=== PATIENT | male | born 1950 | race Caucasian/White ===

== ENCOUNTER 2020-08-27 08:27 | Day surgery (SDC) | payer OTHER ==
[2020-08-27] MEDS ORDERED: NA CHLORIDE 0.9% 1,000 ML ONE (08:59)
[2020-08-27] MEDS ORDERED: propofoL 200 MG/20 ML VIAL IV ONE ×2 (10:01)
[2020-08-27] MEDS ORDERED: LIDOCAINE 1% MPF 5 ML VIAL ONE (10:01)
--- NOTE | 2020-08-27 10:06 | ENDO RPT ---
[address], [address] EGD PROCEDURE REPORT EXAM DATE: 08/27/2020 PATIENT NAME: Toñito Long MR#: [id number] BIRTHDATE: 1950 ATTENDING: Lizandro Ye Dr STATUS: outpatient SANITARIAN INSPECTOR: Vernell Beckwith RN, Myrna Araiza RN, Roberta Flowers RN, and Thelma Franco CST INDICATIONS: The patient is a 70 yr old Male here for an EGD due to bloating, belching, dyspepsia, and iron deficiency anemia PROCEDURE PERFORMED: EGD with biopsy MEDICATIONS: Per Anesthesia. TOPICAL ANESTHETIC: none CONSENT: The patient understands the risks and benefits of the procedure and understands that these risks include, but are not limited to: sedation, allergic reaction, infection, perforation and/or bleeding. Alternative means of evaluation and treatment include, among others: physical exam, x-rays, and/or surgical intervention. The patient elects to proceed with this endoscopic procedure. DESCRIPTION OF PROCEDURE: During intra-op preparation period all mechanical medical equipment was checked for proper function. Hand hygiene and appropriate measures for infection prevention was taken. Procedure, possible complications, and alternatives including but not limited to the possibility of bleeding, perforation, tear, infection, sepsis, need for surgery, need for blood transfusion, and anesthesia related complications were explained to the patient. After the risks, benefits and alternatives of the procedure were thoroughly explained, Informed consent was verified, confirmed and timeout was successfully executed by the treatment team. The patient was placed in the left lateral position. The patient was anesthetized with topical anesthesia. Through the anesthetized oropharyngeal area, the scope was passed without any difficulty. The EC-3890Li ([id number]) and EG-[id number] ([id number]) endoscope was introduced through the mouth and advanced to the third portion of the duodenum. Retroflexed views revealed a moderate sized hiatal hernia. The gastroscope was then slowly withdrawn and removed. A moderate sized hiatal hernia was found. Moderate gastritis was found in the total stomach. Multiple biopsies were obtained and sent to pathology. Mild duodenitis was found in the bulb of the duodenum. Small bowel biopsies ob tained with history of iron deficiency anemia. ADVERSE EVENTS: There were no complications. IMPRESSIONS: 1. Moderate sized hiatal hernia 2. Moderate gastritis in the total stomach, s/p biopsies 3. Mild duodenitis in the bulb of the duodenum 4. Small bowel biopsies ob tained with history of iron deficiency anemia RECOMMENDATIONS: 1. await biopsy results 2. acid suppression therapy REPEAT EXAM: Lizandro Ye Dr eSigned: Lizandro Ye Dr 08/27/2020 10:06 AM cc: Lino Carpenter CPT CODES: ICD9 CODES: PATIENT NAME: Toñito Long MR#: [id number]
--- NOTE | 2020-08-27 10:35 | ENDO RPT ---
[address], [address] COLONOSCOPY PROCEDURE REPORT EXAM DATE: 08/27/2020 PATIENT NAME: Toñito Long MR #: [id number] BIRTHDATE: 1950 ATTENDING: Lizandro Ye Dr STATUS: outpatient PRE ASSEMBLY WIRER: Vernell Beckwith RN, Myrna Araiza RN, Roberta Flowers RN, and Thelma Franco CST INDICATIONS: The patient is a 70 yr old Male here for a colonoscopy due to iron deficiency anemia PROCEDURE PERFORMED: Colonoscopy MEDICATIONS: Per Anesthesia. ESTIMATED BLOOD LOSS: None CONSENT: The patient understands the risks and benefits of the procedure and understands that these risks include, but are not limited to: sedation, allergic reaction, infection, perforation and/or bleeding. Alternative means of evaluation and treatment include, among others: physical exam, x-rays, and/or surgical intervention. The patient elects to proceed with this endoscopic procedure. DESCRIPTION OF PROCEDURE: During intra-op preparation period all mechanical medical equipment was checked for proper function. Hand hygiene and appropriate measures for infection prevention was taken. Procedure, possible complications, alternatives including, but not limited to possibility of bleeding, perforation, tear, infection, sepsis, need for surgery, need for blood transfusion, were explained to the patient. After the risks, benefits and alternatives of the procedure were thoroughly explained, Informed consent was verified, confirmed and timeout was successfully executed by the treatment team. The patient was placed in the left lateral position. A digital rectal exam was performed and revealed external hemorrhoids. After appropriate level of anesthesia, the scope was passed. The EG-[id number] ([id number]) and EC-3890Li ([id number]) endoscope was introduced through the anus and advanced to the ascending colon. The quality of the prep was fair. The instrument was then slowly withdrawn as the colon was fully examined. Scope withdrawal time was 7 minutes. COLON FINDINGS: Moderate sized internal and external hemorrhoids were found. Retroflexed views revealed medium hemorrhoids. The scope was then completely withdrawn from the patient and the procedure terminated. ADVERSE EVENTS: There were no complications. IMPRESSIONS: 1. Moderate sized internal and external hemorrhoids 2. Intubation to ascending colon RECOMMENDATIONS: barium enema RECALL: Return in 5 year(s) for Colonoscopy. Lizandro Ye Dr eSigned: Lizandro Ye Dr 08/27/2020 10:34 AM cc: Lino Carpenter CPT CODES: ICD9 CODES: 455.5 External hemorrhoids with other complication PATIENT NAME: Toñito Long MR#: [id number]
--- NOTE | 2020-08-27 13:53 | RAD REPORT ---
EXAM DESCRIPTION: RAD - Colon Barium Enema - 08/27/2020 1:13 pm CLINICAL HISTORY: Abdominal pain/incomplete colonoscopy COMPARISON: None TECHNIQUE: Single-contrast barium enema was performed. The entire colon was filled with refluxed into the append ix and terminal ileum FINDINGS:. Apron Operator film demonstrates air throughout the colon. There is a 2.7 filling defect within the rectum. Otherwise, no permanent filling defects, obstructing or constricting lesions are seen. Fluoroscopy time 1.3 minutes. Eighteen fluoroscopic spot images obtained IMPRESSION: 2.7 centimeter filling defect within the rectum. It is uncertain if this represents the balloon associated with the rectal tube or a mass. Digital examination is recommended Otherwise unremarkable exam
[2020-08-27 14:48] VITALS: BP 123/75; TEMP 97; O2SAT 95
== END 2020-08-27 13:22 | disposition home or self-care (01) ==
LOC: OR 08:27
PROVIDERS: ATTEND Internal Medicine Gastroenterology
PROC: 0DB68ZX Excision of Stomach, Via Natural or Artificial Opening Endoscopic, Diagnostic (ICD-10-PCS; principal; 2020-08-27 09:30)
PROC: 0DJD8ZZ Inspection of Lower Intestinal Tract, Via Natural or Artificial Opening Endoscopic (ICD-10-PCS; 2020-08-27 09:30)
DX: D50.9 Iron deficiency anemia, unspecified (principal); R14.2 Eructation; R10.13 Epigastric pain; K29.50 Unspecified chronic gastritis without bleeding; K64.4 Residual hemorrhoidal skin tags; K64.8 Other hemorrhoids; K44.9 Diaphragmatic hernia without obstruction or gangrene; Z20.822 Contact with and (suspected) exposure to COVID-19
CPT/HCPCS: 43239; 45378; 88312; 82947; 88305; 74270; U0002; J2704 ×2; J7030

== ENCOUNTER 2022-07-22 11:15 | Day surgery (SDC) | payer OTHER ==
[2022-07-19 16:38] LABS: Absolute Lymphocytes (CBC) 0.6 K/uL (0.7-4.9); Hematocrit 42.8 % (39.6-49.0); MCV 88.3 fL (80-100); MPV 8.8 fL (7.6-11.3); RBC Red Blood Cell Count 4.85 M/uL (4.33-5.43)
[2022-07-19 16:41] LABS: Protime INR 1.14
[2022-07-19 16:48] LABS: Potassium 4.5 mmol/L (3.5-5.1)
--- NOTE | 2022-07-20 07:37 | EKG ---
Test Date: 2022-07-19 Test Time: 14:53:41 Oil Agent: RENA MEASUREMENT RESULTS: Intervals: Rate: 71 NH: QRSD: 142 QT: 406 QTc: 441 Tyler: P: NH: QRS: -46 T: 56 INTERPRETIVE STATEMENTS: Atrial fibrillation Left axis deviation Left bundle branch block Abnormal ECG Compared to ECG 10/12/2012 15:58:17 Left-axis deviation now present Left bundle-branch block now present ST (T wave) deviation no longer present Electronically Signed On 07-20-22 07:35:25 DRIVER ENGINEER by Paul Izquierdo
[~2022-07-22 11:15] MED LIST: ATROPINE SULF 1 MG/10 ML SYR IV ONE; FENTANYL CITR 100 MCG/2 ML ONE; FLUMAZENIL 0.1 MG/ML (5 mL VIAL) IV ONE; LIDOCAINE VISCOUS 2% SOLN 15 ML UDC ONE; METOPROLOL TARTRATE 5 MG/5 ML INJ IV ONE; MIDAZOLAM HCL 5 ML ONE; NA CHLORIDE 0.9% 500 ML ONE; PHENOL 1.4% ORAL SPRAY 180ML ONE
[2022-07-22 11:25] VITALS: TEMP 97.1
[2022-07-22 14:38] VITALS: BP 112/61; O2SAT 97
--- NOTE | 2022-07-22 15:31 | EKG ---
Test Date: 2022-07-22 Test Time: 13:36:04 [employer] Law Clerk: JENNIFER MEASUREMENT RESULTS: Intervals: Rate: 61 ME: QRSD: 154 QT: 432 QTc: 434 Pringle: P: ME: QRS: -45 T: 55 INTERPRETIVE STATEMENTS: Atrial fibrillation Left axis deviation Left bundle branch block Abnormal ECG Compared to ECG 07/19/2022 14:53:41 No significant changes Electronically Signed On 07-22-22 15:30:11 [employer] by Jerome Nicholas
--- NOTE | 2022-07-22 18:00 | OP ---
Date of Procedure: 07/22/2022 Surgeon: YAYO BRAGA Procedures Performed: 1.Transesophageal echocardiogram. 2.Electrical cardioversion. Diagnosis: Atrial fibrillation. Description Of Procedure: After risks, benefits, alternatives were explained, the patient agreed to procedure and signed informed consent. The patient was brought into the OR room 5. After proper terra e-out, the back of the throat was numbed using lidocaine locally and then gave 5 mg of Versed and the n the SAVI probe was inserted without difficulty. SAVI was performed. There was no left atrial append age thrombus. Then, using synchronized cardioversion, I used 200 joules in an attempt to cardiovert to sinus rhythm; however, it failed. Then, charged to 300 joules and did synchronize cardioversion a nd the patient continues to be in atrial fibrillation. Conclusion: 1.No left atrial appendage closure. 2.Electrical cardioversion; however, 2 attempts failed to restore sinus rhythm. Plan: Consult EP for ablation. /BECKI Voice ID: [id number] Report ID: [id number]
--- NOTE | 2022-07-23 07:16 | TEE ---
TRANSESOPHAGEAL ECHOCARDIOGRAM REPORT CARDIOLOGY DEPARTMENT DATE OF STUDY: 07/22/2022 HEIGHT: 6ft, 0in WEIGHT: 320 lbs DIAGNOSIS: CARDIOVERSION MAID HOUSEKEEPER COMMENTS: CARDIAC HISTORY: CATHERIZATION: SURGERY: PROSTHETIC VALVE: PACEMAKER: 2 DIMENSIONAL ASSESSMENT: RIGHT ATRIUM: NORMAL LEFT ATRIUM: ENLARGED RIGHT VENTRICLE: NORMAL LEFT VENTRICLE: DEPRESSED EJECTION FRACTION TRICUSPID VALVE: MILD TRICUSPID REGURGITATION MITRAL VALVE: MILD MITRAL REGURGITATION PULMONIC VALVE: NORMAL AORTIC VALVE: NORMAL PERICARDIAL EFFUSION: NONE AORTIC ROOT: NORMAL EJECTION FRACTION: 25-30 % LEFT VENTRICULAR WALL MOTION: SEVERE GLOBAL HYPOKINESIS DOPPLER/COLOR FLOW: SEE BELOW COMMENTS: 1. SEVERELY DEPRESSED LEFT VENTRICULAR EJECTION FRACTION 25-30% 2. MILD MITRAL REGURGITATION 3. MILD TRICUSPID REGURGITATION 4. NO LEFT ATRIAL APPENDAGE [facility] TECHNOLOGIST: JAYLYN ALCANTARA
== END 2022-07-22 14:15 | disposition home or self-care (01) ==
LOC: CCL 11:15
PROVIDERS: ATTEND Internal Medicine
DX: I48.19 Other persistent atrial fibrillation (principal); I11.0 Hypertensive heart disease with heart failure; I50.20 Unspecified systolic (congestive) heart failure; I35.0 Nonrheumatic aortic (valve) stenosis; I44.7 Left bundle-branch block, unspecified; E78.2 Mixed hyperlipidemia; E11.9 Type 2 diabetes mellitus without complications; G47.30 Sleep apnea, unspecified; M10.9 Gout, unspecified; E66.01 Morbid (severe) obesity due to excess calories; Z68.41 Body mass index [BMI] 40.0-44.9, adult; F17.210 Nicotine dependence, cigarettes, uncomplicated; Z79.01 Long term (current) use of anticoagulants; Z79.899 Other long term (current) drug therapy; Z82.49 Family history of ischemic heart disease and other diseases of the circulatory system
CPT/HCPCS: 93005 ×2; 93312; 85025; 80048; 36415; 85610; 85730; 92960; J2250; J7040; J0461; J3010

== ENCOUNTER → 2022-12-15 | Day surgery (SDC) | payer OTHER ==
[~2022-12-15] MED LIST changes: -FENTANYL CITR 100 MCG/2 ML ONE; -FLUMAZENIL 0.1 MG/ML (5 mL VIAL) IV ONE; +HYDRALAZINE HCL 20 MG/ML VIAL ONE; -LIDOCAINE VISCOUS 2% SOLN 15 ML UDC ONE; -MIDAZOLAM HCL 5 ML ONE; -PHENOL 1.4% ORAL SPRAY 180ML ONE
--- NOTE | 2022-12-16 07:28 | ECHO ---
DOBUTAMINE STRESS ECHOCARDIOGRAM HEIGHT: ft in WEIGHT: lb oz DATE OF STUDY: 12/15/[address]: Jerome Nicholas 2-DIMENSIONAL: M.MODE: DOPPLER: COLOR FLOW: TDS: PORTABLE: DEFINITY: BUBBLE STUDY: DIAGNOSIS: CONGESTIVE HEART FAILURE CARDIAC HISTORY: CATHERIZATION: SURGERY: PROSTHETIC VALVE: PACEMAKER: MEASUREMENTS (cm) DIASTOLIC (NORMALS) SYSTOLIC (NORMALS) IVSd (0.6-1.2) LA Diam (1.9-4.0) LVEF % LVIDd (3.5-5.7) LVIDs (2.0-3.5) %FS % LVPWd (0.6-1.2) Ao Diam (2.0-3.7) 2 DIMENSIONAL ASSESSMENT: RIGHT ATRIUM: LEFT ATRIUM: RIGHT VENTRICLE: LEFT VENTRICLE: TRICUSPID VALVE: MITRAL VALVE: PULMONIC VALVE: AORTIC VALVE: PERICARDIAL EFFUSION: AORTIC ROOT: LEFT VENTRICULAR WALL MOTION: DOPPLER/COLOR FLOW: COMMENTS: 1. THIS IS A FOCUSED ECHOCARDIOGRAM TO EVALUATE TO AORTIC VALVE 2. WITH 20 mcg OF DOBUTAMINE THE MEAN WAS 45.3 mmHg AND PEAK VELOCITY OF 4.5 m/s INDICATING SEVERE AORTIC VALVE [employer] TECHNOLOGIST: POLLY HINOJOSA/ JAYLYN NEVAREZ
== END ==
LOC: EKG 07:00
PROVIDERS: ATTEND Internal Medicine
DX: I50.20 Unspecified systolic (congestive) heart failure (principal); I35.0 Nonrheumatic aortic (valve) stenosis; I48.19 Other persistent atrial fibrillation; E78.5 Hyperlipidemia, unspecified; E11.9 Type 2 diabetes mellitus without complications; Z79.01 Long term (current) use of anticoagulants; Z79.84 Long term (current) use of oral hypoglycemic drugs; Z79.899 Other long term (current) drug therapy; F17.210 Nicotine dependence, cigarettes, uncomplicated; Z82.49 Family history of ischemic heart disease and other diseases of the circulatory system
CPT/HCPCS: 93350; 93351; J0360; J0461; J7040

== ENCOUNTER 2025-03-25 11:37 | Inpatient (IN) | payer OTHER ==
--- OUTSIDE RECORDS SUMMARY | 2025-03-25 11:43 | XMS REPORT | Continuity of Care Document ---
Author Name Unknown Address [address] [facility] [address] [place] [address] [facility] Address [address] [facility] [address] [place] [address] Care Team Providers Care Fusing Furnace Loader Name Role Phone Sabrina Griffin Attending Clinician UnavailMarcelina Ledesma Attending Clinician Unavailable Miles Bowen Attending Clinician Unavailable Jerome Nicholas Attending Clinician Unavailable Sabrina Griffin Admitting Clinician UnavailJerome Ferreira Admitting Clinician Unavailable Payers Payer Name Policy Type Policy Number Effective Date Expirati on Date Source Allergies, Adverse Reactions, Alerts Allergy Name Allergy Type Status Severity Reaction(s) Onset Date Inactive Date Treating Clinician Comments Source No Known Allergie s DA Active U 7- 00:00: 00 [facility] No Known Allergie s DA Active U 6 00:00: 00 [facility] Procedures Procedure Date / Time Performed Performing Clinicia n Source INSERT CARD RSYNC PACE PULS GEN IN CHEST SUBCU/FAS 2025-03-08 00:00:00 [facility] INSERTION OF PACEMAKER LEAD INTO COR VEIN, PERC AP 2025-03-08 00:00:00 [facility] INSERTION OF PACEMAKER LEAD INTO RIGHT ATRIUM, PER 2025-03-08 00:00:00 [facility] INSERTION OF PACEMAKER LEAD INTO L VENTRICLE, [facility] 2025-03-08 00:00:00 [facility] INSERTION OF PACEMAKER LEAD INTO R VENTRICLE, [facility] 2025-03-08 00:00:00 [facility] MEASUREMENT OF CARDIAC ELECTRICAL ACTIVITY, PERC A 2024-11-27 00:00:[address] [facility] DESTRUCTION OF CONDUCTION MECHANISM, PERCUTANEOUS 2024-11-27 00:00:[address] [facility] MAP CONDUCTION MECHANISM, PERCUTANEOUS APPROACH 2024-11-27 00:00:[address] [facility] MEASUREMENT OF CARDIAC RHYTHM, PERCUTANEOUS APPROA 2024-11-27 00:00:[address] [facility] [id number] 2023-02-22 00:00:00 [facility]AAB[facility]01 [facility] [id number] 2023-02-22 00:00:00 [facility]01 [facility] [id number] 2023-02-22 00:00:00 [facility]01 [facility] [id number] 2023-02-22 00:00:00 [facility]01 [facility] Encounters Start Date/Time End Date/Time Encounter Type Admission Type Attending [facility] Care Facility Care Department Encounter ID Source 2025-03-08 18:13:00 2025-03-09 14:53:00 Inpatient Johnny Saucedataty [facility] MEDI.01 [id number] [facility] 2024-11-27 12:56:00 2024-11-30 12:35:00 Inpatient EL Johnny Griffintaty [facility] TELE [id number] [facility] 2024-11-23 08:00:00 2024-11-23 12:00:00 Outpatient POLY SmithEliasSabrina whitlock [facility] 3DAY [id number] [facility] 2023-02-22 05:31:00 2023-02-23 12:47:00 Inpatient POLY Casillasilan Marcelina [facility] CARD [id number] [facility] 2023-02-18 08:00:00 2023-02-18 09:00:00 Outpatient Marcelina Chadwick [facility] 3DAY [id number] [facility] 2023-01-31 11:14:00 2023-01-31 11:14:00 Outpatient Miles Clark [facility] OUTD [id number] [facility] 2023-01-03 05:09:00 2023-01-03 05:09:00 Outpatient Jerome Bass [facility] OUTD [id number] [facility] Results Test Description Test Time Test Comments Results Result Co mments Source GLUCOSE [id number] 08:42:00* Test Item Value Reference Range Interpretation Comme nts GLUCOSE BEDSIDE (test code = GLUBED) 94 MG/DL 70-110 N Performed by cer tified conveyor console operator at [facility] GLUCOSE [id number] 22:23:00* Test Item Value Reference Range Interpretation Comme nts GLUCOSE BEDSIDE (test code = GLUBED) 79 MG/DL 70-110 N Performed by cer tified conveyor console operator at [facility] PROTHROMBIN [id number] 18:14:00* Test Item Value Reference Range Interpretation Comme nts PROTHROMBIN TIME PATIENT (test code = PTP) 11.8 SECONDS 9.3-12.9 N INTERNATIONAL NORMAL RATIO (test code = INR) 1.1 0.8-1.2 N TARGET INR BY INDICATION Indication INR1. Prophylaxis of venous thrombosis 2.0 - 3.0 (orthopedic surgery), Prophylaxis of venous thrombosis (other than high-risk surgery), Treatment of Deep Vein Thrombosis/Pulmonary Embolism, Prevention of systemic embolism - Tissue heart valves, Acute Myocardial Infarction (to prevent systemic embolism), Valvular heart disease, Atrial Fibrillation, Bileaflet mechanical valve in aortic position.2. Mechanical prosthetic valves (high risk), 2.5 - 3.5 Presence of Lupus Anticoagulant or Antiphospholipid Antibodies, Prevention of systemic embolism - Acute Myocardial Infarction (to prevent recurrent infarct). LIPOPROTEIN [id number] 18:07:00* Test Item Value Reference Range Interpretation Comme nts LIPOPROTEIN LDL (test code = LDL) 44.0 mg/dL 0-100 N <100 [id number] 0-129 NEAR OPTIMAL/ABOVE [id number] HIGH>IB=216 VERY HIGH*Guidelines provided by the National Cholesterol EducationProgram Adult Treatment Panel III B-TYPE NATRIURETIC [id number] 17:56:00* Test Item Value Reference Range Interpretation Comme nts B-TYPE NATRIURETIC PEPTIDE ( test code = BNP) 73.0 PG/ML 0-100 N COMPREHENSIVE METABOLIC [id number] 17:50:00* Test Item Value Reference Range Interpretation Comme nts SODIUM (test code = NA) 137 mEq/L 134-147 N POTASSIUM (test code = K) 4.5 mEq/L 3.4-5.0 N CHLORIDE (test code = CL) 99 mEq/L 100-108 L CARBON DIOXIDE (test code = CO2) 26 mEq/l 21-33 N ANION GAP (test code = GAP) 16 0-20 N GLUCOSE (test code = GLU) 109 mg/dL 77-141 N BLOOD UREA NITROGEN (test code = BUN) 50 mg/dL 7-25 H GLOMERULAR FILTRATION RATE (test code = GFR) 14.9 70-80 L The Glomerular Filtration Rate is a calculated parameterbased on serum Creatinine, patient age and sex. GFR valuesless than 60 mL/min/1.73 square meters are indicative ofChronic Kidney Disease. Values less than 15 mL/min/1.73square meters indicate Kidney failure. The calculation forGFR is based on the CKD-EPI (2020) calculation. This formulais race indifferent and is the recommended formula for GFRby the National Kidney Foundation for Adults.The GFR will not calculate if the sex is unknown or if thepatient's age is <18 years. CREATININE (test code = CREAT) 4.0 mg/dL 0.6-1.3 H TOTAL PROTEIN (test code = PROT) 6.8 g/dL 5.7-8.2 N ALBUMIN (test code = ALB) 4.00 g/dL 3.4-5.0 N CALCIUM (test code = CA) 9.6 mg/dL 8.0-10.5 N BILIRUBIN TOTAL (test code = BILT) 0.30 mg/dL 0.0-1.0 N SGOT/AST (test code = AST) 95 IUnit/L 8-34 H SGPT/ALT (test code = ALT) 108 IUnit/L 10-49 H ALKALINE PHOSPHATASE TOTAL (test code = ALKP) 106 IUnit/L 20-125 N [id number] 17:50:00* Test Item Value Reference Range Interpretation Comme nts MAGNESIUM (test code = MAG) 2.80 mg/dL 1.6-2.6 H TROP-I HIGH [id number] 17:50:00* Test Item Value Reference Range Interpretation Comme nts TROP-I HIGH SENSITIVITY (test code = TROPIHS) 68 ng/L 0-54 H CAUTION: Units o f the current test methodology (ng/L) differfrom the prior test methodology (ng/mL) by a factor of 1000. 99th Percentile Upper Reference Limit (URL): Females: 34 ng/LMales: 54 ng/L In order to distinguish acute elevations of high sensitivitytroponin from other clinical conditions, the FourthUniversal Definition of Myocardial Infarction stressesclinical assessment and the demonstration of a rise and/orfall in serial troponin results above the URL. These results were obtained using [employer] IM TnIHreagent. Results from different methodologies should not becompared to one another as quantitative results and URLs mayvary by method. CBC W/AUTO [id number] 17:34:00* Test Item Value Reference Range Interpretation Comme nts WHITE BLOOD CELL (test code = WBC) 5.6 x10 3/uL 4.5-11.0 N RED BLOOD CELL (test code = RBC) 3.15 x10 6/uL 4.00-5.60 L HEMOGLOBIN (test code = HGB) 8.8 g/dL 12.5-16.9 L HEMATOCRIT (test code = HCT) 29.1 % 37.5-50.7 L MEAN CELL VOLUME (test code = MCV) 92.4 fL 81.0-99.0 N MEAN CELL HGB (test code = MCH) 27.9 pg 27.0-33.0 N MEAN CELL HGB CONCETRATION (test code = MCHC) 30.2 g/dL 33.0-37.0 L RED CELL DISTRIBUTION WIDTH CV (test code = RDW) 16.3 % 11.5-14.5 H RED CELL DISTRIBUTION WIDTH SD (test code = RDW-SD) 55.1 fL 37.0-54.0 H PLATELET COUNT (test code = PLT) 121 x10 3/uL 150-400 L IMMATURE PLATELET FRACTION (test code = IPF) 3.9 % 0.9-11.2 N MEAN PLATELET VOLUME (test c ode = MPV) 12.4 fL 7.0-9.0 H NEUTROPHIL % (test code = NT%) 73.4 % 56.0-77.0 N IMMATURE GRANULOCYTE % (test code = IG%) 0.2 % 0.0-2.0 N LYMPHOCYTE % (test code = LY%) 11.5 % 14.0-32.0 L MONOCYTE % (test code = MO%) 12.3 % 4.8-9.0 H EOSINOPHIL % (test code = EO%) 2.2 % 0.3-3.7 N BASOPHIL % (test code = BA%) 0.4 % 0.0-2.0 N NUCLEATED RBC % (test code = NRBC%) 0.0 % 0-0 N NEUTROPHIL # (test code = NT#) 4.08 x10 3/uL 2.0-7.6 N IMMATURE GRANULOCYTE # (test code = IG#) 0.01 x10 3/uL 0.00-0.03 N LYMPHOCYTE # (test code = LY#) 0.64 x10 3/uL 1.0-3.8 L MONOCYTE # (test code = MO#) 0.68 x10 3/uL 0.1-0.8 N EOSINOPHIL # (test code = EO#) 0.12 x10 3/uL 0.0-0.2 N BASOPHIL # (test code = BA#) 0.02 x10 3/uL 0.0-0.2 N NUCLEATED RBC # (test code = NRBC#) 0.00 x10 3/uL 0.0-0.1 N GLUCOSE [id number] 12:02:00* Test Item Value Reference Range Interpretation Comme [facility] GLUCOSE BEDSIDE (test code = GLUBED) 118 MG/DL 70-110 H Performed by cer tified conveyor console operator at [facility] GLUCOSE [id number] 08:17:00* Test Item Value Reference Range Interpretation Comme [facility] GLUCOSE BEDSIDE (test code = GLUBED) 128 MG/DL 70-110 H Performed by jim norwood conveyor console operator at [facility] COMPREHENSIVE METABOLIC [id number] 06:16:00* Test Item Value Reference Range Interpretation Comme nts SODIUM (test code = NA) 145 mEq/L 134-147 N POTASSIUM (test code = K) 3.4 mEq/L 3.4-5.0 N CHLORIDE (test code = CL) 106 mEq/L 100-108 N CARBON DIOXIDE (test code = CO2) 25 mEq/l 21-33 N ANION GAP (test code = GAP) 17 0-20 N GLUCOSE (test code = GLU) 123 mg/dL 77-141 N BLOOD UREA NITROGEN (test code = BUN) 28 mg/dL 7-25 H GLOMERULAR FILTRATION RATE (test code = GFR) 52.4 70-80 L The Glomerular Filtration Rate is a calculated parameterbased on serum Creatinine, patient age and sex. GFR valuesless than 60 mL/min/1.73 square meters are indicative ofChronic Kidney Disease. Values less than 15 mL/min/1.73square meters indicate Kidney failure. The calculation forGFR is based on the CKD-EPI (202) calculation. This formulais race indifferent and is the recommended formula for GFRby the National Kidney Foundation for Adults.The GFR will not calculate if the sex is unknown or if thepatient's age is <18 years. CREATININE (test code = CREAT) 1.4 mg/dL 0.6-1.3 H TOTAL PROTEIN (test code = PROT) 6.7 g/dL 5.7-8.2 N Note change in REFERENCE RANGE due to change in REAGENT. ALBUMIN (test code = ALB) 4.00 g/dL 3.4-5.0 N CALCIUM (test code = CA) 9.6 mg/dL 8.0-10.5 N BILIRUBIN TOTAL (test code = BILT) 0.40 mg/dL 0.0-1.0 N SGOT/AST (test code = AST) 28 IUnit/L 8-34 N SGPT/ALT (test code = ALT) 11 IUnit/L 10-49 N ALKALINE PHOSPHATASE TOTAL (test code = ALKP) 54 IUnit/L 20-125 N [id number] 06:16:00* Test Item Value Reference Range Interpretation Comme nts PHOSPHOROUS (test code = PHOS) 3.7 MG/DL 2.5-4.9 N [id number] 06:16:00* Test Item Value Reference Range Interpretation Comme nts MAGNESIUM (test code = MAG) 1.93 mg/dL 1.6-2.6 N CALCIUM [id number] 06:16:00* Test Item Value Reference Range Interpretation Comme nts CALCIUM IONIZED (test code = DYLON) 1.19 MMOL/L 1.09-1.30 N CBC W/AUTO [id number] 06:08:00* Test Item Value Reference Range Interpretation Comme nts WHITE BLOOD CELL (test code = WBC) 5.3 x10 3/uL 4.5-11.0 N RED BLOOD CELL (test code = RBC) 3.44 x10 6/uL 4.00-5.60 L HEMOGLOBIN (test code = HGB) 9.9 g/dL 12.5-16.9 L HEMATOCRIT (test code = HCT) 30.9 % 37.5-50.7 L MEAN CELL VOLUME (test code = MCV) 89.8 fL 81.0-99.0 N MEAN CELL HGB (test code = MCH) 28.8 pg 27.0-33.0 N MEAN CELL HGB CONCETRATION (test code = MCHC) 32.0 g/dL 33.0-37.0 L RED CELL DISTRIBUTION WIDTH CV (test code = RDW) 15.3 % 11.5-14.5 H RED CELL DISTRIBUTION WIDTH SD (test code = RDW-SD) 49.6 fL 37.0-54.0 N PLATELET COUNT (test code = PLT) 142 x10 3/uL 150-400 L MEAN PLATELET VOLUME (test c ode = MPV) 12.6 fL 7.0-9.0 H NEUTROPHIL % (test code = NT%) 71.2 % 56.0-77.0 N IMMATURE GRANULOCYTE % (test code = IG%) 0.4 % 0.0-2.0 N LYMPHOCYTE % (test code = LY%) 13.9 % 14.0-32.0 L MONOCYTE % (test code = MO%) 12.4 % 4.8-9.0 H EOSINOPHIL % (test code = EO%) 1.7 % 0.3-3.7 N BASOPHIL % (test code = BA%) 0.4 % 0.0-2.0 N NUCLEATED RBC % (test code = NRBC%) 0.0 % 0-0 N NEUTROPHIL # (test code = NT#) 3.80 x10 3/uL 2.0-7.6 N IMMATURE GRANULOCYTE # (test code = IG#) 0.02 x10 3/uL 0.00-0.03 N LYMPHOCYTE # (test code = LY#) 0.74 x10 3/uL 1.0-3.8 L MONOCYTE # (test code = MO#) 0.66 x10 3/uL 0.1-0.8 N EOSINOPHIL # (test code = EO#) 0.09 x10 3/uL 0.0-0.2 N BASOPHIL # (test code = BA#) 0.02 x10 3/uL 0.0-0.2 N NUCLEATED RBC # (test code = NRBC#) 0.00 x10 3/uL 0.0-0.1 N COMMENTS: Daily while in ICUGLUCOSE [id number] 20:30:00* Test Item Value Reference Range Interpretation Comme nts GLUCOSE BEDSIDE (test code = GLUBED) 163 MG/DL 70-110 H Performed by cer Sc[employer] conveyor console operator at [facility] GLUCOSE [id number] 17:56:00* Test Item Value Reference Range Interpretation Comme nts GLUCOSE BEDSIDE (test code = GLUBED) 126 MG/DL 70-110 H Performed by inDinero conveyor console operator at [facility] GLUCOSE [id number] 16:52:00* Test Item Value Reference Range Interpretation Comme nts GLUCOSE BEDSIDE (test code = GLUBED) 287 MG/DL 70-110 H Performed by cer tified conveyor console operator at [facility] GLUCOSE [id number] 14:03:00* Test Item Value Reference Range Interpretation Comme nts GLUCOSE BEDSIDE (test code = GLUBED) 138 MG/DL 70-110 H Performed by cer tified conveyor console operator at [facility] GLUCOSE [id number] 09:57:00* Test Item Value Reference Range Interpretation Comme nts GLUCOSE BEDSIDE (test code = GLUBED) 149 MG/DL 70-110 H Performed by inDinero conveyor console operator at [facility] GLUCOSE [id number] 08:31:00* Test Item Value Reference Range Interpretation Comme nts GLUCOSE BEDSIDE (test code = GLUBED) 128 MG/DL 70-110 H Performed by cer cuco conveyor console operator at [facility] COMPREHENSIVE METABOLIC [id number] 03:52:00* Test Item Value Reference Range Interpretation Comme nts SODIUM (test code = NA) 144 mEq/L 134-147 N POTASSIUM (test code = K) 3.6 mEq/L 3.4-5.0 N CHLORIDE (test code = CL) 106 mEq/L 100-108 N CARBON DIOXIDE (test code = CO2) 25 mEq/l 21-33 N ANION GAP (test code = GAP) 16 0-20 N GLUCOSE (test code = GLU) 125 mg/dL 77-141 N BLOOD UREA NITROGEN (test code = BUN) 21 mg/dL 7-25 N GLOMERULAR FILTRATION RATE (test code = GFR) 70.0 70-80 N The Glomerular Filtration Rate is a calculated parameterbased on serum Creatinine, patient age and sex. GFR valuesless than 60 mL/min/1.73 square meters are indicative ofChronic Kidney Disease. Values less than 15 mL/min/1.73square meters indicate Kidney failure. The calculation forGFR is based on the CKD-EPI (202) calculation. This formulais race indifferent and is the recommended formula for GFRby the National Kidney Foundation for Adults.The GFR will not calculate if the sex is unknown or if thepatient's age is <18 years. CREATININE (test code = CREAT) 1.1 mg/dL 0.6-1.3 N TOTAL PROTEIN (test code = PROT) 6.4 g/dL 5.7-8.2 N Note change in REFERENCE RANGE due to change in REAGENT. ALBUMIN (test code = ALB) 3.90 g/dL 3.4-5.0 N CALCIUM (test code = CA) 9.6 mg/dL 8.0-10.5 N BILIRUBIN TOTAL (test code = BILT) 0.70 mg/dL 0.0-1.0 N SGOT/AST (test code = AST) 38 IUnit/L 8-34 H SGPT/ALT (test code = ALT) 11 IUnit/L 10-49 N ALKALINE PHOSPHATASE TOTAL (test code = ALKP) 57 IUnit/L 20-125 N [id number] 03:52:00* Test Item Value Reference Range Interpretation Comme nts PHOSPHOROUS (test code = PHOS) 2.6 MG/DL 2.5-4.9 N [id number] 03:52:00* Test Item Value Reference Range Interpretation Comme nts MAGNESIUM (test code = MAG) 1.95 mg/dL 1.6-2.6 N CALCIUM [id number] 03:52:00* Test Item Value Reference Range Interpretation Comme nts CALCIUM IONIZED (test code = DYLON) 1.14 MMOL/L 1.09-1.30 N CBC W/AUTO [id number] 03:30:00* Test Item Value Reference Range Interpretation Comme nts WHITE BLOOD CELL (test code = WBC) 5.4 x10 3/uL 4.5-11.0 N RED BLOOD CELL (test code = RBC) 3.36 x10 6/uL 4.00-5.60 L HEMOGLOBIN (test code = HGB) 9.8 g/dL 12.5-16.9 L HEMATOCRIT (test code = HCT) 30.2 % 37.5-50.7 L MEAN CELL VOLUME (test code = MCV) 89.9 fL 81.0-99.0 N MEAN CELL HGB (test code = MCH) 29.2 pg 27.0-33.0 N MEAN CELL HGB CONCETRATION (test code = MCHC) 32.5 g/dL 33.0-37.0 L RED CELL DISTRIBUTION WIDTH CV (test code = RDW) 15.4 % 11.5-14.5 H RED CELL DISTRIBUTION WIDTH SD (test code = RDW-SD) 49.9 fL 37.0-54.0 N PLATELET COUNT (test code = PLT) 121 x10 3/uL 150-400 L MEAN PLATELET VOLUME (test c ode = MPV) 11.1 fL 7.0-9.0 H NEUTROPHIL % (test code = NT%) 73.5 % 56.0-77.0 N IMMATURE GRANULOCYTE % (test code = IG%) 0.4 % 0.0-2.0 N LYMPHOCYTE % (test code = LY%) 13.3 % 14.0-32.0 L MONOCYTE % (test code = MO%) 10.9 % 4.8-9.0 H EOSINOPHIL % (test code = EO%) 1.5 % 0.3-3.7 N BASOPHIL % (test code = BA%) 0.4 % 0.0-2.0 N NUCLEATED RBC % (test code = NRBC%) 0.0 % 0-0 N NEUTROPHIL # (test code = NT#) 3.97 x10 3/uL 2.0-7.6 N IMMATURE GRANULOCYTE # (test code = IG#) 0.02 x10 3/uL 0.00-0.03 N LYMPHOCYTE # (test code = LY#) 0.72 x10 3/uL 1.0-3.8 L MONOCYTE # (test code = MO#) 0.59 x10 3/uL 0.1-0.8 N EOSINOPHIL # (test code = EO#) 0.08 x10 3/uL 0.0-0.2 N BASOPHIL # (test code = BA#) 0.02 x10 3/uL 0.0-0.2 N NUCLEATED RBC # (test code = NRBC#) 0.00 x10 3/uL 0.0-0.1 N COMMENTS: Daily while in ICUGLUCOSE [id number] 20:41:00* Test Item Value Reference Range Interpretation Comme nts GLUCOSE BEDSIDE (test code = GLUBED) 112 MG/DL 70-110 H Performed by inDinero conveyor console operator at [facility] GLUCOSE [id number] 17:14:00* Test Item Value Reference Range Interpretation Comme nts GLUCOSE BEDSIDE (test code = GLUBED) 136 MG/DL 70-110 H Performed by inDinero conveyor console operator at [facility] GLUCOSE [id number] 12:13:00* Test Item Value Reference Range Interpretation Comme nts GLUCOSE BEDSIDE (test code = GLUBED) 159 MG/DL 70-110 H Performed by cer [employer] conveyor console operator at [facility] GLUCOSE [id number] 08:14:00* Test Item Value Reference Range Interpretation Comme nts GLUCOSE BEDSIDE (test code = GLUBED) 112 MG/DL 70-110 H Performed by inDinero conveyor console operator at [facility] COMPREHENSIVE METABOLIC [id number] 05:17:00* Test Item Value Reference Range Interpretation Comme nts SODIUM (test code = NA) 144 mEq/L 134-147 N POTASSIUM (test code = K) 3.7 mEq/L 3.4-5.0 N CHLORIDE (test code = CL) 105 mEq/L 100-108 N CARBON DIOXIDE (test code = CO2) 28 mEq/l 21-33 N ANION GAP (test code = GAP) 14 0-20 N GLUCOSE (test code = GLU) 113 mg/dL 77-141 N BLOOD UREA NITROGEN (test code = BUN) 22 mg/dL 7-25 N GLOMERULAR FILTRATION RATE (test code = GFR) 70.0 70-80 N The Glomerular Filtration Rate is a calculated parameterbased on serum Creatinine, patient age and sex. GFR valuesless than 60 mL/min/1.73 square meters are indicative ofChronic Kidney Disease. Values less than 15 mL/min/1.73square meters indicate Kidney failure. The calculation forGFR is based on the CKD-EPI (2020) calculation. This formulais race indifferent and is the recommended formula for GFRby the National Kidney Foundation for Adults.The GFR will not calculate if the sex is unknown or if thepatient's age is <18 years. CREATININE (test code = CREAT) 1.1 mg/dL 0.6-1.3 N TOTAL PROTEIN (test code = PROT) 6.6 g/dL 5.7-8.2 N Note change in REFERENCE RANGE due to change in REAGENT. ALBUMIN (test code = ALB) 4.00 g/dL 3.4-5.0 N CALCIUM (test code = CA) 9.5 mg/dL 8.0-10.5 N BILIRUBIN TOTAL (test code = BILT) 0.60 mg/dL 0.0-1.0 N SGOT/AST (test code = AST) 52 IUnit/L 8-34 H SGPT/ALT (test code = ALT) 14 IUnit/L 10-49 N ALKALINE PHOSPHATASE TOTAL (test code = ALKP) 60 IUnit/L 20-125 N [id number] 05:17:00* Test Item Value Reference Range Interpretation Comme nts PHOSPHOROUS (test code = PHOS) 3.9 MG/DL 2.5-4.9 N [id number] 05:17:00* Test Item Value Reference Range Interpretation Comme nts MAGNESIUM (test code = MAG) 2.14 mg/dL 1.6-2.6 N CALCIUM [id number] 05:17:00* Test Item Value Reference Range Interpretation Comme nts CALCIUM IONIZED (test code = DYLON) 1.17 MMOL/L 1.09-1.30 N CBC W/AUTO [id number] 04:44:00* Test Item Value Reference Range Interpretation Comme nts WHITE BLOOD CELL (test code = WBC) 8.1 x10 3/uL 4.5-11.0 N RED BLOOD CELL (test code = RBC) 3.40 x10 6/uL 4.00-5.60 L HEMOGLOBIN (test code = HGB) 9.9 g/dL 12.5-16.9 L HEMATOCRIT (test code = HCT) 31.0 % 37.5-50.7 L MEAN CELL VOLUME (test code = MCV) 91.2 fL 81.0-99.0 N MEAN CELL HGB (test code = MCH) 29.1 pg 27.0-33.0 N MEAN CELL HGB CONCETRATION (test code = MCHC) 31.9 g/dL 33.0-37.0 L RED CELL DISTRIBUTION WIDTH CV (test code = RDW) 15.0 % 11.5-14.5 H RED CELL DISTRIBUTION WIDTH SD (test code = RDW-SD) 50.1 fL 37.0-54.0 N PLATELET COUNT (test code = PLT) 131 x10 3/uL 150-400 L MEAN PLATELET VOLUME (test c ode = MPV) 11.4 fL 7.0-9.0 H NEUTROPHIL % (test code = NT%) 81.8 % 56.0-77.0 H IMMATURE GRANULOCYTE % (test code = IG%) 0.5 % 0.0-2.0 N LYMPHOCYTE % (test code = LY%) 7.5 % 14.0-32.0 L MONOCYTE % (test code = MO%) 10.0 % 4.8-9.0 H EOSINOPHIL % (test code = EO%) 0.1 % 0.3-3.7 L BASOPHIL % (test code = BA%) 0.1 % 0.0-2.0 N NUCLEATED RBC % (test code = NRBC%) 0.0 % 0-0 N NEUTROPHIL # (test code = NT#) 6.62 x10 3/uL 2.0-7.6 N IMMATURE GRANULOCYTE # (test code = IG#) 0.04 x10 3/uL 0.00-0.03 H LYMPHOCYTE # (test code = LY#) 0.61 x10 3/uL 1.0-3.8 L MONOCYTE # (test code = MO#) 0.81 x10 3/uL 0.1-0.8 H EOSINOPHIL # (test code = EO#) 0.01 x10 3/uL 0.0-0.2 N BASOPHIL # (test code = BA#) 0.01 x10 3/uL 0.0-0.2 N NUCLEATED RBC # (test code = NRBC#) 0.00 x10 3/uL 0.0-0.1 N COMMENTS: Daily while in ICUGLUCOSE [id number] 21:00:00* Test Item Value Reference Range Interpretation Comme nts GLUCOSE BEDSIDE (test code = GLUBED) 125 MG/DL 70-110 H Performed by cer tified conveyor console operator at [facility] COAGULATION TIME [id number] 20:55:00* Test Item Value Reference Range Interpretation Comme nts COAGULATION TIME ACTIVATED (test code = ACT) 343 SECONDS Performed by certified conveyor console operator at [facility] GLUCOSE [id number] 17:06:00* Test Item Value Reference Range Interpretation Comme nts GLUCOSE BEDSIDE (test code = GLUBED) 138 MG/DL 70-110 H Performed by cer tified conveyor console operator at [facility] GLUCOSE [id number] 12:33:00* Test Item Value Reference Range Interpretation Comme nts GLUCOSE BEDSIDE (test code = GLUBED) 111 MG/DL 70-110 H Performed by cer tified conveyor console operator at [facility] GLUCOSE [id number] 09:14:00* Test Item Value Reference Range Interpretation Comme nts GLUCOSE BEDSIDE (test code = GLUBED) 104 MG/DL 70-110 N Performed by cer tified conveyor console operator at [facility] BASIC METABOLIC [id number] 12:34:00* Test Item Value Reference Range Interpretation Comme nts SODIUM (test code = NA) 145 mEq/L 134-147 N POTASSIUM (test code = K) 3.8 mEq/L 3.4-5.0 N CHLORIDE (test code = CL) 106 mEq/L 100-108 N CARBON DIOXIDE (test code = CO2) 31 mEq/l 21-33 N ANION GAP (test code = GAP) 12 0-20 N GLUCOSE (test code = GLU) 108 mg/dL 77-141 N BLOOD UREA NITROGEN (test code = BUN) 23 mg/dL 7-25 N GLOMERULAR FILTRATION RATE (test code = GFR) 70.0 70-80 N The Glomerular Filtration Rate is a calculated parameterbased on serum Creatinine, patient age and sex. GFR valuesless than 60 mL/min/1.73 square meters are indicative ofChronic Kidney Disease. Values less than 15 mL/min/1.73square meters indicate Kidney failure. The calculation forGFR is based on the CKD-EPI (2020) calculation. This formulais race indifferent and is the recommended formula for GFRby the National Kidney Foundation for Adults.The GFR will not calculate if the sex is unknown or if thepatient's age is <18 years. CREATININE (test code = CREAT) 1.1 mg/dL 0.6-1.3 N CALCIUM (test code = CA) 9.7 mg/dL 8.0-10.5 N PROTHROMBIN [id number] 12:32:00* Test Item Value Reference Range Interpretation Comme nts PROTHROMBIN TIME PATIENT (test code = PTP) 14.3 SECONDS 9.3-12.9 H INTERNATIONAL NORMAL RATIO (test code = INR) 1.3 0.8-1.2 H TARGET INR BY INDICATION Indication INR1. Prophylaxis of venous thrombosis 2.0 - 3.0 (orthopedic surgery), Prophylaxis of venous thrombosis (other than high-risk surgery), Treatment of Deep Vein Thrombosis/Pulmonary Embolism, Prevention of systemic embolism - Tissue heart valves, Acute Myocardial Infarction (to prevent systemic embolism), Valvular heart disease, Atrial Fibrillation, Bileaflet mechanical valve in aortic position.2. Mechanical prosthetic valves (high risk), 2.5 - 3.5 Presence of Lupus Anticoagulant or Antiphospholipid Antibodies, Prevention of systemic embolism - Acute Myocardial Infarction (to prevent recurrent infarct). CBC W/AUTO [id number] 12:23:00* Test Item Value Reference Range Interpretation Comme nts WHITE BLOOD CELL (test code = WBC) 6.0 x10 3/uL 4.5-11.0 N RED BLOOD CELL (test code = RBC) 3.31 x10 6/uL 4.00-5.60 L HEMOGLOBIN (test code = HGB) 9.6 g/dL 12.5-16.9 L HEMATOCRIT (test code = HCT) 30.8 % 37.5-50.7 L MEAN CELL VOLUME (test code = MCV) 93.1 fL 81.0-99.0 N MEAN CELL HGB (test code = MCH) 29.0 pg 27.0-33.0 N MEAN CELL HGB CONCETRATION (test code = MCHC) 31.2 g/dL 33.0-37.0 L RED CELL DISTRIBUTION WIDTH CV (test code = RDW) 15.0 % 11.5-14.5 H RED CELL DISTRIBUTION WIDTH SD (test code = RDW-SD) 50.8 fL 37.0-54.0 N PLATELET COUNT (test code = PLT) 182 x10 3/uL 150-400 N MEAN PLATELET VOLUME (test c ode = MPV) 10.7 fL 7.0-9.0 H NEUTROPHIL % (test code = NT%) 77.1 % 56.0-77.0 H IMMATURE GRANULOCYTE % (test code = IG%) 0.3 % 0.0-2.0 N LYMPHOCYTE % (test code = LY%) 12.3 % 14.0-32.0 L MONOCYTE % (test code = MO%) 7.8 % 4.8-9.0 N EOSINOPHIL % (test code = EO%) 2.0 % 0.3-3.7 N BASOPHIL % (test code = BA%) 0.5 % 0.0-2.0 N NUCLEATED RBC % (test code = NRBC%) 0.0 % 0-0 N NEUTROPHIL # (test code = NT#) 4.63 x10 3/uL 2.0-7.6 N IMMATURE GRANULOCYTE # (test code = IG#) 0.02 x10 3/uL 0.00-0.03 N LYMPHOCYTE # (test code = LY#) 0.74 x10 3/uL 1.0-3.8 L MONOCYTE # (test code = MO#) 0.47 x10 3/uL 0.1-0.8 N EOSINOPHIL # (test code = EO#) 0.12 x10 3/uL 0.0-0.2 N BASOPHIL # (test code = BA#) 0.03 x10 3/uL 0.0-0.2 N NUCLEATED RBC # (test code = NRBC#) 0.00 x10 3/uL 0.0-0.1 N GLUCOSE [id number] 11:11:00* Test Item Value Reference Range Interpretation Comme nts GLUCOSE BEDSIDE (test code = GLUBED) 164 MG/DL 70-110 H Performed by cer cuco conveyor console operator at [facility] CBC W/AUTO [id number] 10:30:00* Test Item Value Reference Range Interpretation Comme nts WHITE BLOOD CELL (test code = WBC) 5.9 x10 3/uL 4.5-11.0 N RED BLOOD CELL (test code = RBC) 4.24 x10 6/uL 4.00-5.60 N HEMOGLOBIN (test code = HGB) 12.2 g/dL 12.5-16.9 L HEMATOCRIT (test code = HCT) 39.6 % 37.5-50.7 N MEAN CELL VOLUME (test code = MCV) 93.4 fL 81.0-99.0 N MEAN CELL HGB (test code = MCH) 28.8 pg 27.0-33.0 N MEAN CELL HGB CONCETRATION (test code = MCHC) 30.8 g/dL 33.0-37.0 L RED CELL DISTRIBUTION WIDTH CV (test code = RDW) 14.9 % 11.5-14.5 H RED CELL DISTRIBUTION WIDTH SD (test code = RDW-SD) 50.7 fL 37.0-54.0 N PLATELET COUNT (test code = PLT) 75 x10 3/uL 150-400 L IMMATURE PLATELET FRACTION (test code = IPF) 5.5 % 0.9-11.2 N MEAN PLATELET VOLUME (test c ode = MPV) 11.5 fL 7.0-9.0 H NEUTROPHIL % (test code = NT%) 80.9 % 56.0-77.0 H IMMATURE GRANULOCYTE % (test code = IG%) 0.5 % 0.0-2.0 N LYMPHOCYTE % (test code = LY%) 6.7 % 14.0-32.0 L MONOCYTE % (test code = MO%) 11.1 % 4.8-9.0 H EOSINOPHIL % (test code = EO%) 0.5 % 0.3-3.7 N BASOPHIL % (test code = BA%) 0.3 % 0.0-2.0 N NUCLEATED RBC % (test code = NRBC%) 0.0 % 0-0 N NEUTROPHIL # (test code = NT#) 4.74 x10 3/uL 2.0-7.6 N IMMATURE GRANULOCYTE # (test code = IG#) 0.03 x10 3/uL 0.00-0.03 N LYMPHOCYTE # (test code = LY#) 0.39 x10 3/uL 1.0-3.8 L MONOCYTE # (test code = MO#) 0.65 x10 3/uL 0.1-0.8 N EOSINOPHIL # (test code = EO#) 0.03 x10 3/uL 0.0-0.2 N BASOPHIL # (test code = BA#) 0.02 x10 3/uL 0.0-0.2 N NUCLEATED RBC # (test code = NRBC#) 0.00 x10 3/uL 0.0-0.1 N MANUAL DIFF REQUIRED (test c ode = MDIFF) NO PLT [id number] 10:30:00* Test Item Value Reference Range Interpretation Comme nts PLATELET ESTIMATE (test code = PLTEST) 68-85 THOUSAND ADEQUATE BASIC METABOLIC [id number] 06:41:00* Test Item Value Reference Range Interpretation Comme nts SODIUM (test code = NA) 142 mEq/L 134-147 N POTASSIUM (test code = K) 4.1 mEq/L 3.4-5.0 N CHLORIDE (test code = CL) 109 mEq/L 100-108 H CARBON DIOXIDE (test code = CO2) 26 mEq/l 21-33 N ANION GAP (test code = GAP) 12 0-20 N GLUCOSE (test code = GLU) 87 mg/dL 70-110 N BLOOD UREA NITROGEN (test code = BUN) 17 mg/dL 7-18 N GLOMERULAR FILTRATION RATE (test code = GFR) 79.5 70-80 N The Glomerular Filtration Rate is a calculated parameterbased on serum Creatinine, patient age and sex. GFR valuesless than 60 mL/min/1.73 square meters are indicative ofChronic Kidney Disease. Values less than 15 mL/min/1.73square meters indicate Kidney failure. The calculation forGFR is based on the CKD-EPI (2020) calculation. This formulais race indifferent and is the recommended formula for GFRby the National Kidney Foundation for Adults.The GFR will not calculate if the sex is unknown or if thepatient's age is <18 years. CREATININE (test code = CREAT) 1.0 mg/dL 0.6-1.3 N CALCIUM (test code = CA) 8.8 mg/dL 8.0-10.5 N [id number] 06:41:00* Test Item Value Reference Range Interpretation Comme nts MAGNESIUM (test code = MAG) 2.32 mg/dL 1.80-2.40 N [id number] 10:50:00* Test Item Value Reference Range Interpretation Comme nts ACT-ISTAT (test code = ACTI) 347 SEC 74-137 H Performed by cer tified conveyor console operator at [facility] GLUCOSE [id number] 07:55:00* Test Item Value Reference Range Interpretation Comme [facility] GLUCOSE BEDSIDE (test code = GLUBED) 114 MG/DL 70-110 H Performed by cer tified conveyor console operator at [facility] - XR CHEST 1 [id number] 00:00:00 [facility] 1950 Sex: M FAX: Marcelina Delcid MD [phone] [place]: St: [facility] FAX: Jerome Serrano MD [phone] ------- Name: MARIEROSALINDAOLIVIA SALINAS [facility] : 1950 Age/S: 72/M [address] [place] [address] Unit #: [id number] Loc: [place] [address] Phys: Jerome Nicholas MD Acct: [id number] Dis Date: Status: ADM IN PHONE #: [phone] Exam Date: 02/22/2023 1224 FAX #: [phone] Reason: S/P TAVR EXAMS: CPT CODE: [id number] XR CHEST 1 V 67572 PROCEDURE INFORMATION: Exam: XR Chest Exam date and time: 02/22/2023 11:55 AM Age: 72 years old Clinical indication: Pre-operative exam; Respiratory screening exam; Additional info: S/P tavr TECHNIQUE: Imaging protocol: Radiologic exam of the chest. Views: 1 view. COMPARISON: DX XR CHEST 2 V 12/31/2022 2:46 PM FINDINGS: Tubes, catheters and devices: None. Lungs: Moderate degree bilateral perihilar and basilar interstitial alveolar pulmonary edema versus infiltrates, pneumonia within the lungs. The pulmonary opacities are most prominent within bilateral perihilar lungs. Lung volumes are decreased. Pleural spaces: No pleural effusion. No pneumothorax. Heart/Mediastinum: Cardiac silhouette appears severely enlarged. Bones/joints: Generalized bony degenerative changes. Bony structures appear otherwise unremarkable. Soft tissues: This study is severely limited by patient's largebody habitus. IMPRESSION: 1. Severe enlarged cardiac silhouette. 2. Moderate pulmonary edema versusinfiltrates, pneumonia. at 1313 Reported and signed by: Guero Guy M.D. CC: Marcelina Burnett MD; Jerome Nicholas MD Technologist: RT Kailey(R) Trnscrd Date/Time/By: 02/22/2023 (1313) : By: [email or web address] Orig P rint D/T: S: 02/22/2023 (1313) PAGE 1 Signed ReportBASIC METABOLIC PANEL 2023-02-18 12:29:00* Test Item Value Reference Range Interpretation Comme nts SODIUM (test code = NA) 143 mEq/L 134-147 N POTASSIUM (test code = K) 3.9 mEq/L 3.4-5.0 N CHLORIDE (test code = CL) 105 mEq/L 100-108 N CARBON DIOXIDE (test code = CO2) 29 mEq/l 21-33 N ANION GAP (test code = GAP) 13 0-20 N GLUCOSE (test code = GLU) 100 mg/dL 70-110 N BLOOD UREA NITROGEN (test code = BUN) 29 mg/dL 7-18 H GLOMERULAR FILTRATION RATE (test code = GFR) 39.3 70-80 L The Glomerular Filtration Rate is a calculated parameterbased on serum Creatinine, patient age and sex. GFR valuesless than 60 mL/min/1.73 square meters are indicative ofChronic Kidney Disease. Values less than 15 mL/min/1.73square meters indicate Kidney failure. The calculation forGFR is based on the CKD-EPI (2020) calculation. This formulais race indifferent and is the recommended formula for GFRby the National Kidney Foundation for Adults.The GFR will not calculate if the sex is unknown or if thepatient's age is <18 years. CREATININE (test code = CREAT) 1.8 mg/dL 0.6-1.3 H CALCIUM (test code = CA) 9.4 mg/dL 8.0-10.5 N [id number] 12:29:00* Test Item Value Reference Range Interpretation Comme nts ALBUMIN (test code = ALB) 4.50 g/dL 3.4-5.0 N B-TYPE NATRIURETIC [id number] 12:18:00* Test Item Value Reference Range Interpretation Comme nts B-TYPE NATRIURETIC PEPTIDE ( test code = BNP) 274.0 PG/ML 0-100 H PROTHROMBIN [id number] 12:08:00* Test Item Value Reference Range Interpretation Comme nts PROTHROMBIN TIME PATIENT (test code = PTP) 16.0 SECONDS 9.3-12.9 H INTERNATIONAL NORMAL RATIO (test code = INR) 1.4 0.8-1.2 H TARGET INR BY INDICATION Indication INR1. Prophylaxis of venous thrombosis 2.0 - 3.0 (orthopedic surgery), Prophylaxis of venous thrombosis (other than high-risk surgery), Treatment of Deep Vein Thrombosis/Pulmonary Embolism, Prevention of systemic embolism - Tissue heart valves, Acute Myocardial Infarction (to prevent systemic embolism), Valvular heart disease, Atrial Fibrillation, Bileaflet mechanical valve in aortic position.2. Mechanical prosthetic valves (high risk), 2.5 - 3.5 Presence of Lupus Anticoagulant or Antiphospholipid Antibodies, Prevention of systemic embolism - Acute Myocardial Infarction (to prevent recurrent infarct). CBC W/AUTO [id number] 11:57:00* Test Item Value Reference Range Interpretation Comme nts WHITE BLOOD CELL (test code = WBC) 5.5 x10 3/uL 4.5-11.0 N RED BLOOD CELL (test code = RBC) 4.65 x10 6/uL 4.00-5.60 N HEMOGLOBIN (test code = HGB) 13.2 g/dL 12.5-16.9 N HEMATOCRIT (test code = HCT) 42.7 % 37.5-50.7 N MEAN CELL VOLUME (test code = MCV) 91.8 fL 81.0-99.0 N MEAN CELL HGB (test code = MCH) 28.4 pg 27.0-33.0 N MEAN CELL HGB CONCETRATION (test code = MCHC) 30.9 g/dL 33.0-37.0 L RED CELL DISTRIBUTION WIDTH CV (test code = RDW) 15.0 % 11.5-14.5 H RED CELL DISTRIBUTION WIDTH SD (test code = RDW-SD) 50.1 fL 37.0-54.0 N PLATELET COUNT (test code = PLT) 116 x10 3/uL 150-400 L MEAN PLATELET VOLUME (test c ode = MPV) 11.9 fL 7.0-9.0 H NEUTROPHIL % (test code = NT%) 76.4 % 56.0-77.0 N IMMATURE GRANULOCYTE % (test code = IG%) 0.4 % 0.0-2.0 N LYMPHOCYTE % (test code = LY%) 10.1 % 14.0-32.0 L MONOCYTE % (test code = MO%) 9.9 % 4.8-9.0 H EOSINOPHIL % (test code = EO%) 2.6 % 0.3-3.7 N BASOPHIL % (test code = BA%) 0.6 % 0.0-2.0 N NUCLEATED RBC % (test code = NRBC%) 0.0 % 0-0 N NEUTROPHIL # (test code = NT#) 4.17 x10 3/uL 2.0-7.6 N IMMATURE GRANULOCYTE # (test code = IG#) 0.02 x10 3/uL 0.00-0.03 N LYMPHOCYTE # (test code = LY#) 0.55 x10 3/uL 1.0-3.8 L MONOCYTE # (test code = MO#) 0.54 x10 3/uL 0.1-0.8 N EOSINOPHIL # (test code = EO#) 0.14 x10 3/uL 0.0-0.2 N BASOPHIL # (test code = BA#) 0.03 x10 3/uL 0.0-0.2 N NUCLEATED RBC # (test code = NRBC#) 0.00 x10 3/uL 0.0-0.1 N MANUAL DIFF REQUIRED (test c ode = MDIFF) NO COVID 19 Asymptomatic IH [id number] 11:11:00* Test Item Value Reference Range Interpretation Comme nts COVID 19 Asymptomatic IH AG (test code = COVNONPUIAG) Negative Negative A negative resul t is presumptive and should be confirmedwith an FDA authorized molecular assay, if necessary forpatient management.A positive result does not rule out co-infections withother pathogens.This test detects both viable (live) and non-viable,SARS-CoV, and SARS-CoV-2. Test performance depends on theamount of virus (antigen) in the sample.This test has not been FDA cleared or approved; the test hasbeen authorized by FDA under an Emergency Use Authorization(EUA) for use by laboratories certified under the CLIA thatmeet the requirements to perform moderate, high or waivedcomplexity tests. - CT ANGIO [id number] 00:00:00 [facility] : 1950 Sex: M Name: OLIVIA LUX [facility] : 1950 Age/S: 72 / M [address] [place] [address] Unit #:[id number] Loc: [place] [address] Phys: Miles Bowen COLLECTION ADVISOR Acct: [id number] Dis Date: Status: ROSALIO BILLS #: [phone] Exam Date: 01/31/2023 1247 FAX #: [phone] Reason: AORTIC STENOSIS EXAMS: CPT CODE: [id number] CT ANGIO CHEST 83028 PROCEDURE INFORMATION: Exam: CTA Heart and Coronary Arteries Without and With Contrast Exam date and time: 01/31/2023 12:07 PM Age: 72 years old Clinical indication: Other: Aortic stenosis TECHNIQUE: Imaging protocol: Computed tomographic angiography of the heart, coronary arteries and bypass grafts (when present) without and with contrast including 3D image postprocessing (including evaluation of cardiac structure and morphology, assessment of cardiac function, and evaluation of venous structures, if performed). 3D rendering (Not supervised by radiologist): MIP and/or 3D reconstructed images were created by the technologist. Radiation optimization: A ll CT scans at this facility use at least one of these dose optimization techniques: automated exposure control; mA and/or kV adjustment per patient size (includes targeted exams where dose is matched to clinical indication); or iterative reconstruction. Contrast material: ISOVUE 370; Contrast volume: 100 ml; Contrast route: INTRAVENOUS (IV); Other technique: 3D renderinD reconstructed imageswere created, reviewed and saved. REPORTING DATA: Count of CT and Cardiac NM exams in prior 12 months: This patient has received 0 known CTs and 0 known cardiac nuclear medicine studies in the 12 months prior to the current study. COMPARISON: DX XR CHEST 2 V 12/31/2022 2:46 PM FINDINGS: HEART CTA: Aortic valve calcium score (if available): 1474 Estimated root/annulus diameters as described, Aortic annulus diameters: 31 x 26 mm Mean Annulus diameter: 29 mm Annulus Area: 6.36 cm2 Perimeter: 93 mm Left cusp height (to Left main takeoff): 16 mm Right cusp height (to RCA takeoff): 13 mm Mean Sinus of Valsalva diameter: 37 mm Sinotubular junction height: 21 mm Sinotubular junction diameter: 35 mm Coronary calcification (Y/N)? (if yes, mild, moderate, severe): Yes; moderate. Aorta: Moderate aortic calcification without aneurysm or dissection. PAGE 1 Signed Report (CONTINUED) Name: OLIVIA LUX [facility] : 1950 Age/S: 72 / M [address] [place] [address] Blvd Unit #: [id number] Loc:[place] [address] Phys: Miles Bowen COLLECTION ADVISOR Acct: [id number] Dis Date: Status: DEP CLI PHONE #: [phone] Exam Date: 01/31/2023 1248 FAX #: [phone] Reason: AORTIC STENOSIS EXAMS: CPT CODE: [id number] CT ANGIO CHEST 04426 (Continued) Pulmonary emboli? (Y/N): Limited assessment for pulmonary emboli in a study tailored for assessment of the aortic annulus. No large central emboli noted. Pericardial thickening/effusion?: No pericardial thickening or effusion. Other findings: No signs of intracardiac thrombus, ventricular hypertrophy or aneurysm.[place] left atrial appendage without thrombus. IMPRESSION: 1. Calcified, trileaflet aortic valve in keeping with history. Annulus measurements as described. 2. Moderate multivessel coronary calcification. 3. Moderate aortic calcification without aneurysm. 4. No pericardial thickening or effusion. PROCEDURE INFORMATION: Exam: CTA Chest Without And With Contrast CTA Abdomen and Pelvis Without And With Contrast Exam date and time: 01/31/2023 12:07 PM Age: 72 years old Clinical indication: Other: Aortic stenosis TECHNIQUE: Imaging protocol: Computed tomographic angiography of the chest without and with contrast. Exam focused on the arteries. Computed tomographic angiography of the abdomen and pelvis without and with contrast. Exam focused on the arteries. 3D rendering (Not supervised by radiologist): MIP and/or 3D reconstructed images were created by the technologist. Radiation optimization: All CT scans [facility] facility use at least one of these dose optimization techniques: automated exposure control; mA and/or kV adjustment per patient size (includes targeted exams where dose is matched to clinical i ndication); or iterative reconstruction. Contrast material: ISOVUE 370; Contrast volume: 100 ml; Contrast route: INTRAVENOUS (IV); REPORTING DATA: Count of CT and Cardiac NM exams in prior 12 months:This patient has received 0 known CTs and 0 known cardiac nuclear medicine studies in the 12 monthsprior to the current study. COMPARISON: DX XR CHEST 2 V 12/31/2022 2:46 PM FINDINGS: VASCULATURE: PAGE 2 Signed Report (CONTINUED) Name: OLIVIA LUX [facility] : 1950 Age/S: 72 / M [address] [place] [address] Unit #: [id number] Loc: [place] [address] Phys: Miles Bowen COLLECTION ADVISOR Acct: [id number] Dis Date: Status: DEP CLI PHONE #: [phone] Exam Date: 01/31/2023 1247 FAX #: [phone] Reason: AORTIC STENOSIS EXAMS: CPT CODE: [id number] CT ANGIO CHEST 43632 (Continued) Pulmonary arteries: Limited assessment for pulmonary emboli due to the aortic phase of the contrast bolus. No large central emboli noted. Aorta: Moderate thoracic and severe aortoiliac calcification without aneurysm. Ectatic, nonaneurysmal ascending aorta measuring up to 39 mm in transverse diameter. Estimated aortic diameters are as follows: Mid ascending aorta: 39 mm Mid transverse arch: 34 mm Descending thoracic aorta at the level of the pulmonary arteries: 31 mm Descending thoracic aorta at diaphragmatic hiatus: 28 mm Abdominal aorta just below the renal arteries: 21 mm Distal abdominal aorta at iliac bifurcation: 23 mm Right common iliac artery: 16 mm Left common iliac artery: 14 mm Right common femoral artery: 10 mm Left common femoral artery: 11 mm Celiac trunk and mesenteric arteries: No occlusion or significant stenosis. Moderate ostial calcification, not flow-limiting. Renal arteries: Noocclusion or significant stenosis. Right iliac arteries: Moderate to severe calcified plaque without occlusion or significant stenosis. Left iliac arteries: Moderate to severe calcified plaque without occlusion or flow-limiting stenosis. CHEST: Lungs: No consolidation or mass. Pleural spaces: No pleural effusion. No pneumothorax. Heart: As above. ABDOMEN AND PELVIS: Liver: Roughly 9 mm round focus of homogeneous arterial enhancement in left lateral liver segment 2, probably representing a flashfilling hemangioma or hepatic vascular malformation. No cirrhotic change or gross additional lesions. Gallbladder and bile ducts: No calcified stones. No ductal dilation. Pancreas: Partial fatty replacement. No solid lesion or signs of pancreatitis. Residual normally enhancing lobular parenchyma the pancreatic tail versus 16 mm accessory splenule. Spleen: Normal-sized spleen without focal lesion.Probable accessory splenule versus residual lobular enhancing parenchyma the pancreatic tail as a b enign finding without aggressive appearance. PAGE 3 Signed Report (CONTINUED) Name: DWAINE LUX : 1950 Age/S: 72 / M [address] [place] [address] Blvd Unit #: [id number] Loc: [place] [address] Phys: Miles Bowen COLLECTION ADVISOR Acct: [id number] Dis Date: Status: DEP CLI PHONE #: [phone] Exam Date: 01/31/2023 1247 FAX #: [phone] Reason: AORTIC STENOSIS EXAMS: CPT CODE: [id number] CT ANGIO CHEST 41017 (Continued) Adrenal glands: No adrenal lesions. Kidneys and ureters: Fyremhqii53 mm right upper pole renal cyst with simple fluid attenuation as well as 2.4 cm left lower pole hypodensity with intermediate attenuation (45 -48 HU), incompletely characterized. Nonobstructing 4 mm left lower pole renal stone. No contralateral calculi. No hydronephrosis. Stomach and bowel: No bowel wall edema or pneumatosis. Large volume colonic fecal material diffusely. Appendix: Normal caliber appendix with no thickening or inflammation. Intraperitoneal space: No free intraperitoneal air or fluid. Urinary bladder: No bladder filling defects or diverticula. Reproductive: Normal size prostate with no surrounding inflammation or nodularity. Lymph nodes: No adenopathy. Benign appearing fat containing bilateral inguinal lymph nodes without suspicious features. 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 No fracture or destructive bone lesion. Soft tissues: Surgical clips versus retained metallic shrapnel in the left anterior pelvic wall to be correlated with history. IMPRESSION: 1. Moderate thoracic and severe aortoiliac calcification with ectatic, nonaneurysmal ascending aorta (39 mm). No dissection. Remaining aorta is normal in caliber. 2. Patent celiac, mesenteric and renal arterial circulation. 3. Probable 9 mm round focus of homogeneous arterial enhancement in the left liver lobe. Flash filling hemangioma or vascular malformation, incompletely imaged. This can be followed with routine outpatient dynamic protocol CT or MRI, if indicated. 4. Indeterminate 2.4 cm left lower pole renal hypodensity with intermediate attenuation, not definitely corresponding to water. Suspect proteinaceous cyst. This can also be assessed with a dynamic MR study, if indicated. 5. Other non vascular findings as described. at 1348 Reported and signed by: Colin Perales M.D. PAGE 4 Signed Report (CONTINUED) Name: OLIVIA LUX : 1950 Age/S: 72 / M [address] [place], [place] [address] Unit #: [id number] Loc: [place] [address] Phys: Miles Bowen COLLECTION ADVISOR Acct: [id number] Dis Date: Status: DEP CLI PHONE #: [phone] Date: 01/31/20231246 FAX #: [phone] Reason: AORTIC STENOSIS EXAMS: CPT CODE: [id number] CT ANGIO CHEST 99589 (Continued) CC: Miles Bowen COLLECTION ADVISOR; Jerome Nicholas MD Technologist:Theodore Lundy Jr, RT(R)(CT) CTDI: DLP: Trnscb Date/Time: 02/02/2023 (1347) [email or web address] Orig Print D/T: S: 02/02/2023 ( 1347) PAGE 5 Signed Report- CTA HEART W CN [id number] 00:00:00 [facility] OLIVIA LUX : 1950 Sex: M Name: OLIVIA LUX : 1950 Age/S: 72 / M [address] [place], [place] [address] Unit #: [id number] Loc: [place] [address] Phys: Miles Bowen NP Acct: [id number] Dis Date: Status: DEP CLI PHONE #: [phone] Exam Date: 01/31/2023 FAX #: [phone] Reason: EXAMS: CPT CODE: [id number] CTA HEART W CN ART/GRAFTS 20728 PROCEDURE INFORMATION: Exam: CTA Heart and Coronary Arteries Without and With Contrast Exam date and time: 01/31/2023 12:07 PM Age: 72 years old Clinical indication: Other: Aortic stenosis TECHNIQUE: Imaging protocol: Computed tomographic angiography of the heart, coronary arteries and bypass grafts (when present) without and with contrast including 3D image po stprocessing (including evaluation of cardiac structure and morphology, assessment of cardiac function, and evaluation of venous structures, if performed). 3D rendering (Not supervised by radiologist): MIP and/or 3D reconstructed images were created by the technologist. Radiation optimization: All CT scans at this facility use at least one of these dose optimization techniques: automated exposurecontrol; mA and/or kV adjustment per patient size (includes targeted exams where dose is matched toclinical indication); or iterative reconstruction. Contrast material: ISOVUE 370; Contrast volume:100 ml; Contrast route: INTRAVENOUS (IV); Other technique: 3D renderinD reconstructed images were created, reviewed and saved. REPORTING DATA: Count of CT and Cardiac NM exams in prior 12 months:This patient has received 0 known CTs and 0 known cardiac nuclear medicine studies in the 12 monthsprior to the current study. COMPARISON: DX XR CHEST 2 V 12/31/2022 2:46 PM FINDINGS: HEART CTA: Aortic valve calcium score (if available): 1474 Estimated root/annulus diameters as described, Aortic annulus diameters: 31 x 26 mm Mean Annulus diameter: 29 mm Annulus Area: 6.36 cm2 Perimeter: 93 mm Left cusp height (to Left main takeoff): 16 mm Right cusp height (to RCA takeoff): 13 mm Mean Sinus of Valsalva diameter: 37 mm Sinotubular junction height: 21 mm Sinotubular junction diameter: 35 mm Coronary calcification (Y/N)? (if yes, mild, moderate, severe): Yes; moderate. Aorta: Moderate aortic calcification without aneurysm or dissection. PAGE 1 Signed Report (CONTINUED) Name: DWAINE LUX : 1950 Age/S: 72 / M [address] [place] [address] Bl Unit #: [id number] Loc: MARIAH Ibrahim [address] Phys: Miles Bowen NP Acct: [id number] Dis Date: [facility]: [phone] Date: 01/31/2023 2308 FAX #: [phone] Reason: EXAMS: CPT CODE: [id number] CTA HEART W CN ART/GRAFTS 36094 (Continued) Pulmonary emboli? (Y/N): Limited assessment for pulmonary emboli in a study tailored for assessment of the aortic annulus. No large central emboli noted. Pericardial thickening/effusion?: No pericardial thickening or effusion. Other findings: No signs of intracardiac thrombus, ventricular hypertrophy or aneurysm.Windsock left atrial appendage without thrombus. IMPRESSION: 1. Calcified, trileaflet aortic valve in keeping with history. Annulus measurements as described. 2. Moderate multivessel coronary calcification. 3. Moderate aortic calcification without aneurysm.4. No pericardial thickening or effusion. PROCEDURE INFORMATION: Exam: CTA Chest Without And With Contrast CTA Abdomen and Pelvis Without And With Contrast Exam date and terra e: 01/31/2023 12:07 PM Age: 72 years old Clinical indication: Other: Aortic stenosis TECHNIQUE: Imaging protocol: Computed tomographic angiography of the chest without and with contrast. Exam focused on the arteries. Computed tomographic angiography of the abdomen and pelvis without and with contrast. Exam focused on the arteries. 3D rendering (Not supervised by radiologist): MIP and/or 3D reconstructed images were created by the technologist. Radiation optimization: All CT scans at this facility use at least one of these dose optimization techniques: automated exposure control; mA and/or kV adjustment per patient size (includes targeted exams where dose is matched to clinical indication); or iterative reconstruction. Contrast material: ISOVUE 370; Contrast volume: 100 ml; Contrast route: INTRAVENOUS (IV); REPORTING DATA: Count of CT and Cardiac NM exams in prior 12 months: This patient has received 0 known CTs and 0 known cardiac nuclear medicine studies in the 12 months prior to the c urrent study. COMPARISON: DX XR CHEST 2 V 12/31/2022 2:46 PM FINDINGS: VASCULATURE: PAGE 2 Signed Report (CONTINUED) Name: OLIVIA LUX [facility] : 1950 Age/S: 72 / M [address] [place] [address] Unit #: [id number] Loc: [facility] Ibrahim [address] Phys: Miles Bowen COLLECTION ADVISOR Acct: [id number] Dis Date: Status: DEP CLI PHONE #: [phone] Exam Date: 01/31/2023 1247 FAX #: [phone] Reason: EXAMS: CPT CODE: [id number] CTA HEART W CN ART/GRAFTS 04686 (Continued) Pulmonary arteries: Limited assessment for pulmonary emboli due to the aortic phase of the contrast bolus. No large central emboli noted. Aorta: Moderate thoracic and severe aortoiliac calcification without aneurysm. Ectatic, nonaneu rysmal ascending aorta measuring up to 39 mm in transverse diameter. Estimated aortic diameters areas follows: Mid ascending aorta: 39 mm Mid transverse arch: 34 mm Descending thoracic aorta at the level of the pulmonary arteries: 31 mm Descending thoracic aorta at diaphragmatic hiatus: 28 mm Abdominal aorta just below the renal arteries: 21 mm Distal abdominal aorta at iliac bifurcation: 23 mm Right common iliac artery: 16 mm Left common iliac artery: 14 mm Right common femoral artery: 10 mm Left common femoral artery: 11 mm Celiac trunk and mesenteric arteries: No occlusion or significant stenosis. Moderate ostial calcification, not flow-limiting. Renal arteries: No occlusion or significant stenosis. Right iliac arteries: Moderate to severe calcified plaque without occlusion or significant stenosis. Left iliac arteries: Moderate to severe calcified plaque without occlusion or flow-limiting stenosis. CHEST: Lungs: No consolidation or mass. Pleural spaces: No pleural effusion. No pneumothorax. Heart: As above. ABDOMEN AND PELVIS: Liver: Roughly 9 mm round focus of homogeneous arterial enhancement in left lateral liver segment 2, probably representing a flash filling hemangioma or hepatic vascular malformation. No cirrhotic change or gross additional lesions. Gallbladder and bile ducts: No calcified stones. No ductal dilation. Pancreas: Partial fatty replacement. No solid lesion or signs of pancreatitis. Residual normally enhancing lobular parenchyma the pancreatic tail versus 16 mm accessory splenule. Spleen: Normal- sized spleen without focal lesion. Probable accessory splenule versus residual lobular enhancing parenchyma the pancreatic tail as a benign finding without aggressive appearance. PAGE 3 Signed Report (CONTINUED) Name: OLIVIA LUX [facility] : 1950 Age/S: 72 / M [address] [place] [address] Blvd Unit #: [id number] Loc: MAR[place]H Ibrahim [address] Phys: Miles Bowen COLLECTION ADVISOR Acct: [id number] Dis Date: Status: [facility] CLI PHONE #: [phone] Exam Date: 01/31/2023 1247 FAX #: [phone] Reason: EXAMS: CPT CODE: [id number] CTA HEART W CN ART/GRAFTS 99584 (Continued) Adrenal glands: No adrenal lesions. Kidneys and ureters: Hypodense 19 mm right upper pole renal cyst with simple fluid attenuation as well as 2.4 cm left lower pole hypodensity with intermediate attenuation (45 -48 HU), incompletely characterized. Nonobstructing 4 mm left lower pole renal stone. No contralateral calculi. No hydronephrosis. Stomach and bowel: No bowel wall edema or pneumatosis. Large volume colonic fecal material diffusely. Appendix: Normal caliber appendix with no thickening or inflammation. Intraperitoneal space: No free intraperitoneal air or fluid. Urinary bladder: No bladder filling defects or diverticula. Reproductive: Normal size prostate with no surrounding inflammation or nodularity. Lymph nodes: No adenopathy. Benign appearing fat containing bilateral inguinal lymph nodes without suspicious features. 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 No fracture or destructive bone lesi on. Soft tissues: Surgical clips versus retained metallic shrapnel in the left anterior pelvic wallto be correlated with history. IMPRESSION: 1. Moderate thoracic and severe aortoiliac calcificationwith ectatic, nonaneurysmal ascending aorta (39 mm). No dissection. Remaining aorta is normal in caliber. 2. Patent celiac, mesenteric and renal arterial circulation. 3. Probable 9 mm round focus of homogeneous arterial enhancement in the left liver lobe. Flash filling hemangioma or vascular malformation, incompletely imaged. This can be followed with routine outpatient dynamic protocol CT or MRI, if indicated. 4. Indeterminate 2.4 cm left lower pole renal hypodensity with intermediate attenuation, not definitely corresponding to water. Suspect proteinaceous cyst. This can also be assessed with a dynamic MR study, if indicated. 5. Other non vascular findings as described. at 1348 Reported and signed by: Colin Justin M.D. PAGE 4 Signed Report (CONTINUED) Name: OLIVIA LUX [facility] : 1950 Age/S: 72 / M [address] Unit #: [id number] Loc: MARIAH Ibrahim [address] Phys: Miles Bowen COLLECTION ADVISOR Acct: [id number] Dis Date: Status: DEP CLI PHONE #: [phone] Exam Date: 01/31/20231246 FAX #: [phone] Reason: EXAMS: CPT CODE: [id number] CTA HEART W CN ART/GRAFTS 58807 (Continued) CC: Miles Bowen COLLECTION ADVISOR; Jerome Nicholas MD Technologist:Theodore Lundy Jr, RT(R)(CT) CTDI: DLP: Trnscb Date/Time: 02/02/2023 (1347) [email or web address] Orig Print D/T: S: 02/02/2023 (1347) PAGE 5 Signed Report- CTA ABD PEL W [id number] 00:00:00[facility] : 1950 Sex: M Name: OLIVIA LUX [facility] Isidra Bonilla : 1950 Age/S: 72 / M [address] Unit #: [id number] Loc: MARIAH Ibrahim [address] Phys: Miles Bowen COLLECTION ADVISOR Acct: [id number] Dis Date: Status: DEP CLI PHONE #: [phone] Exam Date: 01/31/20231246 FAX #: [phone] Reason: AORTIC STENOSIS EXAMS:CPT CODE: [id number] CTA ABD PEL W CONT 19719 PROCEDURE INFORMATION: Exam: CTA Heart and Coronary Arteries Without and With Contrast Exam date and time: 01/31/2023 12:07 PM Age: 72 years old Clinical indication: Other: Aortic stenosis TECHNIQUE: Imaging protocol: Computed tomographic angiography of the heart, coronary arteries and bypass grafts (when present) without and with contrast including 3D image postprocessing (including evaluation of cardiac structure and morphology, assessment of cardiac function, and evaluation of venous structures, if performed). 3D rendering (Not supervised by radiologist): MIP and/or 3D reconstructed images were created by the technologist. Radiation optimization: All CT scans at this facility use at least one of these dose optimization techniques: automated exposure control; mA and/or kV adjustment per patient size (includes targeted exams where dose is matched to clinical indication); or iterative reconstruction. Contrast material: ISOVUE 370; Contrast volume: 100 ml; Contrast route: INTRAVENOUS (IV); Other technique: 3D renderinD reconstructed images were created, reviewed and saved. REPORTING DATA: Count of CT and Cardiac NM exams in prior 12 months: This patient has received 0 known CTs and 0 known cardiac nuclear medicine studies in the 12 months prior to the current study. COMPARISON: DX XR CHEST 2 V 12/31/2022 2:46 PM FINDINGS: HEART CTA: Aortic valve calcium score (if available): 1474 Estimated root/annulus diameters as described, Aortic annulus diameters: 31 x 26 mm Mean Annulus diameter: 29 mm Annulus Area: 6.36 cm2 Perimeter: 93 mm Left cusp height (to Left main takeoff): 16 mm Right cusp height (to RCA takeoff): 13 mm Mean Sinus of Valsalva diameter: 37 mm Sinotubular junction height: 21 mm Sinotubular junction diameter: 35 mm Coronary calcification (Y/N)? (if yes, mild, moderate, severe): Yes; moderate. Aorta: Moderate aortic calcification without aneurysm or dissection. PAGE 1 Signed Report (CONTINUED) Name: OLIVIA LUX [facility] Isidra Bonilla : 1950 Age/S: 72 / M [address] [place], [place] [address] Unit #: [id number] Loc: MARIAH Ibrahim [address] Phys: Miles Bowen NP Acct: [id number] Dis Date: Status: DEP CLI PHONE #: [phone] Exam Date: 01/31/2023 1248 FAX #: [phone] Reason: AORTIC STENOSIS EXAMS: CPT CODE: [id number] CTA ABD PEL W CONT 12350 (Continued) Pulmonary emboli? (Y/N): Limited assessment for pulmonary emboli in a study tailored for assessment of the aortic annulus. No large central emboli noted. Pericardial thickening/effusion?: No pericardial thickening or effusion. Other findings: No signs of intracardiac thrombus, ventricular hypertrophy or aneurysm.Windsock left atrial appendage without thrombus. IMPRESSION: 1. Calcified, trileaflet aortic valve in keeping with history. Annulus measurements as described. 2. Moderate multivessel coronary calcification. 3. Moderate aortic calcification without aneurysm. 4. No pericardial thickening or effusion. PROCEDURE INFORMATION: Exam: CTA Chest Without And With Contrast CTA Abdomen and Pelvis Without And With Contrast Exam date and time: 01/31/2023 12:07 PM Age: 72 years old Clinical indication: Other: Aortic stenosisTECHNIQUE: Imaging protocol: Computed tomographic angiography of the chest without and with contrast. Exam focused on the arteries. Computed tomographic angiography of the abdomen and pelvis without and with contrast. Exam focused on the arteries. 3D rendering (Not supervised by radiologist): MIP and/or 3D reconstructed images were created by the technologist. Radiation optimization: All CT scansat this facility use at least one of these dose optimization techniques: automated exposure control; mA and/or kV adjustment per patient size (includes targeted exams where dose is matched to clinical indication); or iterative reconstruction. Contrast material: ISOVUE 370; Contrast volume: 100 ml; Contrast route: INTRAVENOUS (IV); REPORTING DATA: Count of CT and Cardiac NM exams in prior 12 months: This patient has received 0 known CTs and 0 known cardiac nuclear medicine studies in the 12 months prior to the current study. COMPARISON: DX XR CHEST 2 V 12/31/2022 2:46 PM FINDINGS: VASCULATURE:PAGE 2 Signed Report (CONTINUED) Name: OLIVIA LUX [facility] : 1950 Age/S: 72 /M [address] [place] [address] Unit #: [id number] Loc: MARIAH Ibrahim [address] Phys: Miles Bowen NP Acct: [id number] Dis Date: Status: DEP CLI PHONE #: [phone] Exam Date: 01/31/2023 1242 FAX #: Reason: AORTIC STENOSIS EXAMS: CPT CODE: [id number] CTA ABD PEL W CONT 39266 (Continued) Pulmonary arteries: Limited assessment for pulmonary emboli due to the aortic phase of the contrast bolus. No large central emboli noted. Aorta: Moderate thoracic and severe aortoiliac calcification without aneurysm. Ectatic, nonaneurysmal ascending aorta measuring up to 39 mm in transverse diameter. Estimated aortic diameters are as follows: Mid ascending aorta: 39 mm Mid transverse arch: 34 mm Descending thoracic aorta at the level of the pulmonary arteries: 31 mm Descending thoracic aorta at diaphragmatic hiatus: 28 mm Abdominal aorta just below the renal arteries: 21 mm Distal abdominal aorta at iliac bifurcation: 23 mm Right common iliac artery: 16 mm Left common iliac artery: 14 mm Right common femoral artery: 10 mm Left common femoral artery: 11 mm Celiac trunk and mesenteric arteries: No occlusion or significant stenosis. Moderate ostial calcification, not flow-limiting. Renal arteries: No occlusion or significant stenosis. Right iliac arteries: Moderate to severe calcified plaque without occlusion or significant stenosis. Left iliac arteries: Moderate to severe calcified plaque without occlusion or flow-limiting stenosis. CHEST: Lungs: No consolidation or mass. Pleural spaces:No pleural effusion. No pneumothorax. Heart: As above. ABDOMEN AND PELVIS: Liver: Roughly 9 mm round focus of homogeneous arterial enhancement in left lateral liver segment 2, probably representing aflash filling hemangioma or hepatic vascular malformation. No cirrhotic change or gross additional lesions. Gallbladder and bile ducts: No calcified stones. No ductal dilation. Pancreas: Partial fatty replacement. No solid lesion or signs of pancreatitis. Residual normally enhancing lobular parenchyma the pancreatic tail versus 16 mm accessory splenule. Spleen: Normal-sized spleen without focal lesion. Probable accessory splenule versus residual lobular enhancing parenchyma the pancreatic tail as a benign finding without aggressive appearance. PAGE 3 Signed Report (CONTINUED) Name: OLIVIA LUX [facility] : 1950 Age/S: 72 / M [address] [place] [address] Blvd Unit #: [id number] Loc: MARIAH Ibrahim [address] Phys: Miles Bowen COLLECTION ADVISOR Acct: [id number] Dis Date: Status: DEP CLI PHONE #: [phone] Exam Date: 01/31/2023 1247 FAX #: [phone] Reason: AORTIC STENOSIS EXAMS: CPT CODE: [id number] CTA ABD PEL W CONT 26895 (Continued) Adrenal glands: No adrenal lesions. Kidneys and ureters: Hypodense 19 mm right upper pole renal cyst with simple fluid attenuation as well as 2.4 cm left lower pole hypodensity with intermediate attenuation (45 -48 HU), incompletely characterized. Nonobstructing 4 mm left lower pole renal stone. No contralateral calculi. No hydronephrosis. Stomach and bowel: No bowel wall edema or pneumatosis. Large volume colonic fecal material diffusely. Appendix: Normal caliber appendix with no thickening or inflammation. Intraperitoneal space: No free intraperitoneal air or fluid. Urinary bladder: No bladder filling defects or diverticula. Reproductive: Normal size prostate with no surrounding inflammation or nodularity. Lymph nodes: No adenopathy. Benign appearing fat containing bilateral inguinal lymph nodes without suspicious features. 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 No fracture or destructive bone lesion. Soft tissues: Surgical clips versus retained metallic shrapnel in the left anterior pelvic wall to be correlated with history. IMPRESSION: 1. Moderate thoracic and severe aortoiliac calcification with ectatic, nonaneurysmal ascending aorta (39 mm). No dissection. Remaining aorta is normal in caliber. 2. Patent celiac, mesenteric and renal arterial circulation. 3. Probable 9 mm round focus of homogeneous arterial enhancement in the left liver lobe. Flash filling hemangioma or vascular malformation, incompletely imaged. This can be followed with routine outpatient dynamic protocol CT or MRI, if indicated. 4. Indeterminate 2.4 cm left lower pole renal hypodensity with intermediate attenuation, not definitely corresponding to water. Suspect proteinaceous cyst. This can also be assessed with a dynamic MR study, if indicated. 5. Other non vascular findings as described. at 1348 Reported and signed by: Colin Perales M.D. PAGE 4 Signed Report (CONTINUED) Name: OLIVIA LUX [facility] : 1950 Age/S: 72 / M [address] [place] [address] Unit #: [id number] Loc: [place] [address] Phys: Miles Bowen COLLECTION ADVISOR Acct: [id number] Dis Date: Status: DEP CLI PHONE #: Exam Date: 01/31/2023 1247 FAX #: [phone] Reason: AORTIC STENOSIS EXAMS: CPT CODE: [id number] CTA ABD PEL W CONT 30451 (Continued) CC: Miles Bowen COLLECTION ADVISOR; Jerome Nicholas MD Technologist:Theodore Lundy Jr, RT(R)(CT) CTDI: DLP: Trnscb Date/Time: 02/02/2023 (1347) [email or web address] Orig Print D/T: S: 02/02/2023 (1347) PAGE 5 Signed Report- DUP EXTRACRANIAL [id number] 09:25:00 [facility] 1950 Sex: M Name: OLIVIA LUX [facility] : 1950 Age/S: 72 / M [address] [place] [address] Blvd Unit #: [id number] Loc: [place] [address] Phys: Miles Bowen NP Acct: [id number] Dis Date: Status: DEP CLIPHONE #: [phone] Exam Date: 01/31/2023 1435 FAX #: [phone] Reason: SEVERE AORTIC STENOSISEXAMS: CPT CODE: [id number] DUP EXTRACRANIAL [facility] [address] EXAM: Carotid ultrasound Dictation location: H10 INDICATION: Severe aortic stenosis COMPARISON: None DISCUSSION: Olea scale, color Doppler, and spectral waveform analysis images of the extracranial carotid vessels were performed. Right side: Plaque: Minimal plaque is seen at the carotid bulb. Peak systolic velocities: CCA: 83 cm/s ICA: 75cm/s ECA: 96 cm/s ICA to CCA ratio: 0.9 Vertebral artery: Antegrade flow Left side: Plaque: Minimal plaque is seen at the carotid bulb. Peak systolic velocities: CCA: 77 cm/s ICA: 56 cm/s ECA: 69 cm/s ICA to CCA ratio: 0.7 Vertebral artery: Antegrade flow Irregular heart rate is noted. IMPRESSION: 1. Minimal plaque at both carotid bulbs. No hemodynamically significant (greater than 50%) stenosis. 2.Antegrade vertebral artery flow bilaterally. 3. Irregular heart rate. at 0925 Reported and signed by: Reji Danielson M.D. PAGE 1 Signed Report (CONTINUED) Name: OLIVIA LUX [facility] : 1950 Age/S: 72 / M [address] [place] [address] Blvd Unit #: [id number] Loc: [place] [address] Phys: Miles Bowen NP Acct: [id number] Dis Date: Status: DEP CLI PHONE #: [phone] Exam Date: 01/31/2023 1435 FAX #: [phone] Reason: SEVERE AORTIC STENOSIS EXAMS: CPT CODE: [id number] DUP EXTRACRANIAL [facility] 68407 (Continued) CC: Miles Bowen COLLECTION ADVISOR; Jerome Nicholas MD Technologist: Bonifacio Blake Trnscb Date/Time: 02/01/2023 (924) [email or web address] Orig Print D/T: S: 02/01/2023 (927) Probe: PAGE 2 Signed ReportCOVID 19 Asymptomatic IH [id number] 17:00:00* Test Item Value Reference Range Interpretation Comme nts COVID 19 Asymptomatic IH AG (test code = COVNONPUIAG) Negative Negative A negative resul t is presumptive and should be confirmedwith an FDA authorized molecular assay, if necessary forpatient management.A positive result does not rule out co-infections withother pathogens.This test detects both viable (live) and non-viable,SARS-CoV, and SARS-CoV-2. Test performance depends on theamount of virus (antigen) in the sample.This test has not been FDA cleared or approved; the test hasbeen authorized by FDA under an Emergency Use Authorization(EUA) for use by laboratories certified under the CLIA thatmeet the requirements to perform moderate, high or waivedcomplexity tests. NO # ON ORDERGLUCOSE [id number] 08:08:00* Test Item Value Reference Range Interpretation Comme nts GLUCOSE BEDSIDE (test code = GLUBED) 116 MG/DL 70-110 H Performed by cer hermelindaisabella conveyor console operator at [facility] BASIC METABOLIC [id number] 14:26:00* Test Item Value Reference Range Interpretation Comme nts SODIUM (test code = NA) 143 mEq/L 134-147 N POTASSIUM (test code = K) 3.9 mEq/L 3.4-5.0 N CHLORIDE (test code = CL) 108 mEq/L 100-108 N CARBON DIOXIDE (test code = CO2) 29 mEq/l 21-33 N ANION GAP (test code = GAP) 10 0-20 N GLUCOSE (test code = GLU) 140 mg/dL 70-110 H BLOOD UREA NITROGEN (test code = BUN) 17 mg/dL 7-18 N GLOMERULAR FILTRATION RATE (test code = GFR) 70.9 70-80 N The Glomerular Filtration Rate is a calculated parameterbased on serum Creatinine, patient age and sex. GFR valuesless than 60 mL/min/1.73 square meters are indicative ofChronic Kidney Disease. Values less than 15 mL/min/1.73square meters indicate Kidney failure. The calculation forGFR is based on the CKD-EPI (2020) calculation. This formulais race indifferent and is the recommended formula for GFRby the National Kidney Foundation for Adults.The GFR will not calculate if the sex is unknown or if thepatient's age is <18 years. CREATININE (test code = CREAT) 1.1 mg/dL 0.6-1.3 N CALCIUM (test code = CA) 9.5 mg/dL 8.0-10.5 N PROTHROMBIN [id number] 14:21:00* Test Item Value Reference Range Interpretation Comme nts PROTHROMBIN TIME PATIENT (test code = PTP) 13.9 SECONDS 9.3-12.9 H INTERNATIONAL NORMAL RATIO (test code = INR) 1.2 0.8-1.2 N TARGET INR BY INDICATION Indication INR1. Prophylaxis of venous thrombosis 2.0 - 3.0 (orthopedic surgery), Prophylaxis of venous thrombosis (other than high-risk surgery), Treatment of Deep Vein Thrombosis/Pulmonary Embolism, Prevention of systemic embolism - Tissue heart valves, Acute Myocardial Infarction (to prevent systemic embolism), Valvular heart disease, Atrial Fibrillation, Bileaflet mechanical valve in aortic position.2. Mechanical prosthetic valves (high risk), 2.5 - 3.5 Presence of Lupus Anticoagulant or Antiphospholipid Antibodies, Prevention of systemic embolism - Acute Myocardial Infarction (to prevent recurrent infarct). CBC W/AUTO [id number] 14:15:00* Test Item Value Reference Range Interpretation Comme nts WHITE BLOOD CELL (test code = WBC) 5.4 x10 3/uL 4.5-11.0 N RED BLOOD CELL (test code = RBC) 4.56 x10 6/uL 4.00-5.60 N HEMOGLOBIN (test code = HGB) 12.9 g/dL 12.5-16.9 N HEMATOCRIT (test code = HCT) 40.9 % 37.5-50.7 N MEAN CELL VOLUME (test code = MCV) 89.7 fL 81.0-99.0 N MEAN CELL HGB (test code = MCH) 28.3 pg 27.0-33.0 N MEAN CELL HGB CONCETRATION (test code = MCHC) 31.5 g/dL 33.0-37.0 L RED CELL DISTRIBUTION WIDTH CV (test code = RDW) 14.3 % 11.5-14.5 N PLATELET COUNT (test code = PLT) 107 x10 3/uL 150-400 L NEUTROPHIL % (test code = NT%) 75.2 % 56.0-77.0 N LYMPHOCYTE % (test code = LY%) 9.9 % 14.0-32.0 L NEUTROPHIL # (test code = NT#) 4.09 x10 3/uL 2.0-7.6 N LYMPHOCYTE # (test code = LY#) 0.54 x10 3/uL 1.0-3.8 L MANUAL DIFF REQUIRED (test c ode = MDIFF) NO RED CELL DISTRIBUTION WIDTH SD (test code = RDW-SD) 46.9 fL 37.0-54.0 N MEAN PLATELET VOLUME (test c ode = MPV) 11.3 fL 7.0-9.0 H IMMATURE GRANULOCYTE % (test code = IG%) 0.4 % 0.0-2.0 N MONOCYTE % (test code = MO%) 10.7 % 4.8-9.0 H EOSINOPHIL % (test code = EO%) 3.1 % 0.3-3.7 N BASOPHIL % (test code = BA%) 0.7 % 0.0-2.0 N NUCLEATED RBC % (test code = NRBC%) 0.0 % 0-0 N IMMATURE GRANULOCYTE # (test code = IG#) 0.02 x10 3/uL 0.00-0.03 N MONOCYTE # (test code = MO#) 0.58 x10 3/uL 0.1-0.8 N EOSINOPHIL # (test code = EO#) 0.17 x10 3/uL 0.0-0.2 N BASOPHIL # (test code = BA#) 0.04 x10 3/uL 0.0-0.2 N NUCLEATED RBC # (test code = NRBC#) 0.00 x10 3/uL 0.0-0.1 N - XR CHEST 2 [id number] 00:00:00 [facility] 1950 Sex: M FAX: Jerome Serrano MD [phone] [place]: St: PRE FAX: Monique Crow Name: OLIVIA LUX [facility] : 1950 Age/S: 72/M [address] [place] [address] Unit #: [id number] Loc: [place] [address] Phys: Monique Crow COLLECTION ADVISOR Acct: [id number] Dis Date: Status: PRE SDC PHONE #: [phone] ExamDate: 12/31/20221450 FAX #: [phone] Reason: PRE SX EXAMS: CPT CODE: [id number] XR CHEST 2 V 65580 PROCEDURE INFORMATION: Exam: XR Chest Exam date and time: 12/31/2022 2:46 PM Age: 72 years old Clinical indication: Pre-operative exam; Respiratory screening exam; Additional info: Pre SX TECHNIQUE: Imaging protocol: Radiologic exam of the chest. Views: 2 views. PA and Lateral COMPARISON: No relevant prior studies available. FINDINGS: Lungs: No consolidation. Pleural spaces: No pleural effusion. Heart/Mediastinum: Heart is borderline in size. Bones/joints: No gross acute findings. IMPRESSION: No acute cardiopulmonary findings at 1458 Reported and signed by: Beti Sequeira D.O. CC: Jerome Nicholas MD; Monique Crow NP Technologist: RT Rui(Akira) Trnscrd Date/Time/By: 12/31/2022 (1457) : By: [email or web address] Orig Print D/T: S: 12/31/2022 (4310) PAGE 1 Signed Report Notes Date/Time Note Provider Source 2025-03-09 12:16:00 [facility] Hospitalist Discharge Summary REPORT#:[id number] REPORT STATUS: Signed REPORT INITIALIZATION DATE:03/09/25 TIME: 1216 PATIENT: OLIVIA LUX UNIT #: [id number] ROOM/BED: [place] [address] : [birth year] AGE: 74 SEX: M ATTEND: Sabrina Griffin MD ADM AUTHOR: Harpreet Taylor DO REPT SERVICE DT/TIME: 03/09/25 1216 * ALL edits or amendments must be made on the electronic/computer document * General Information Problem List/A P: 1. Symptomatic bradycardia 2. Junctional escape rhythm 3. A-fib 4. CAD (coronary artery disease) Discharge date: 03/09/25 Discharge diagnosis: Complete heart block Hospital course: 74 year old male with history of persistent atrial fibrillation s/p PVI 11/2024, severe aortic stenosis (s/p TAVR 02/2023), systolic HF, HTN, DM who presented to ED for evaluation of bradycardia. He was advised to come to ED by his candlemaker, Dr. Nicholas due to low heart rate, noted with complete heart block. Patient had a pacemaker placed yesterday, tolerated procedure well, has been cleared by EP to be discharged with outpatient follow-up Med Rec Med Rec Discharge meds: Stop taking the following medications: METOPROLOL TARTRATE (LOPRESSOR) 50 MG TAB 50 MILLIGRAM ORAL DAILY. AMIODARONE (PACERONE) 400 MG TAB 400 MILLIGRAM ORAL TWICE DAILY AT 9AM AND 5PM. Days = 30 Qty = 60 Continue taking these medications: ROSUVASTATIN (ROSUVASTATIN) 10 MG TAB 10 MILLIGRAM ORAL BEDTIME. APIXABAN (ELIQUIS) 5 MG TAB 5 MILLIGRAM ORAL TWICE DAILY. Sacubitril/Valsartan (Entresto 97 MG-103 MG Tablet) 97 MG-103 MG TAB 1 EACH ORAL TWICE DAILY. TORSEMIDE (DEMADEX) 20 MG TAB 20 MILLIGRAM ORAL DAILY. GABAPENTIN (NEURONTIN) 600 MG TAB 600 MILLIGRAM ORAL THREE TIMES A DAY. metFORMIN XR (GLUCOPHAGE XR) 750 MG TAB.SR.24H 750 MILLIGRAM ORAL DAILY. EMPAGLIFLOZIN (JARDIANCE) 25 MG TAB 25 MILLIGRAM ORAL DAILY. OMEPRAZOLE ER (OMEPRAZOLE ER) 20 MG CAP.DR 20 MILLIGRAM ORAL DAILY. FAMOTIDINE (PEPCID AC) 10 MG TAB 10 MILLIGRAM ORAL DAILY. POTASSIUM GLUCONATE (POTASSIUM) (Unknown Strength) TAB Unknown Dose ORAL DAILY. MAGNESIUM OXIDE (MAG-OXIDE) (Unknown Strength) TAB Unknown Dose ORAL DAILY. ALLOPURINOL (ZYLOPRIM) 300 MG TAB 300 MILLIGRAM ORAL DAILY. TIRZEPATIDE (MOUNJARO PEN (2mL)) 2.5 MG/0.5 ML PEN.INJCTR 2.5 MILLIGRAM SUBCUTANEOUS EVERY 7 DAYS. guaiFENesin ER (MUCINEX) 600 MG TAB.SA 600 MILLIGRAM ORAL EVERY 12 HOURS. ACETAMINOPHEN (TYLENOL) 325 MG TAB 325 MILLIGRAM ORAL EVERY 6 HOURS NEEDED. as needed for PAIN MELATONIN (MELATONIN) 5 MG TAB.SL 1 TABLET SUBLINGUAL BEDTIME. MULTIVITAMIN (MULTIPLE VITAMIN) 1 TAB TAB 1 TABLET ORAL DAILY. ASPIRIN EC (ECOTRIN) 81 MG TAB.EC 81 MILLIGRAM ORAL DAILY. Qty = 30 IBUPROFEN (ADVIL) 200 MG TAB 200 MILLIGRAM ORAL EVERY 4 HOURS NEEDED. as needed for PAIN FERROUS SULFATE (FEOSOL) 325 MG (65 MG IRON) TAB 325 MILLIGRAM ORAL DAILY. CYANOCOBALAMIN (VITAMIN B-12) 1,000 MCG TAB 1,000 MICROGRAM ORAL DAILY. ASCORBIC ACID (VITAMIN C) 1,000 MG TAB 1,600 MILLIGRAM ORAL DAILY. CALCIUM CITRATE/VITAMIN D3 (CALCIUM CITRATE/VITAMIN D3 200 MG/250 UNITS) 200MG- 6.25 TAB 1 TABLET ORAL DAILY. ZINC ACETATE (GALZIN) 50 MG (ZINC) CAP 50 MILLIGRAM ORAL DAILY. MIDODRINE (PROAMATINE) 5 MG TAB 5 MILLIGRAM ORAL TWICE DAILY AT 9AM AND 5PM. Days = 30 Qty = 60 AMIODARONE (PACERONE) 200 MG TAB 200 MILLIGRAM ORAL TWICE DAILY. Days = 30 Qty = 60 METOPROLOL TARTRATE (LOPRESSOR) 25 MG TAB 25 MILLIGRAM ORAL TWICE DAILY. Days = 30 Qty = 60 Start taking the following new medications: DOXYCYCLINE HYCLATE (VIBRA-TAB) 100 MG TAB 100 MILLIGRAM ORAL EVERY 12 HOURS. Days = 10 Qty = 20 No Refills AMIODARONE (PACERONE) 200 MG TAB 200 MILLIGRAM ORAL TWICE DAILY. Days = 30 Qty = 60 Refills = 1 Hydrocodone/Acetaminophen (HYDROcodone/APAP 5/325) 5 MG-325 MG TAB 1 TABLET ORAL EVERY 6 HOURS NEEDED. as needed for pain Qty = 10 No Refills Discharge Instructions PCP Discharge to: Home/Self Care Additional Discharge Routines: PCP Follow-Up Follow-up Appointments PCP follow-up: PCP: Jerome Nicholas MD PCP follow up timeframe: In 2 days Consulting provider 1: Provider 1: Dominic Vargas MD Specialty: Cardiology-Electrophysio Consult follow up timeframe: In 1-2 weeks at 1217 RPT #:[id number] END OF REPORT [facility] 2025-03-09 08:07:00 [facility] ([facility]) EP Progress Note REPORT#:[id number] REPORT STATUS: Signed REPORT INITIALIZATION DATE:03/09/25 TIME: 806 PATIENT: OLIVIA LUX UNIT #: [id number] ROOM/BED: [place] [address] : [birth year] AGE: 74 SEX: M ATTEND: Sabrina Griffin MD ADM AUTHOR: Evelin Cuevas COLLECTION ADVISOR REPT SERVICE DT/TIME: 03/09/25 0807 * ALL edits or amendments must be made on the electronic/computer document * Balbina Cuevas 03/09/25 0807: Objective Physical Exam Neck: non-tender Cardiovascular: CV assessment: bradycardia, irregular rhythm Respiratory: no distress Abdomen: soft Extremities: dry Neuro/ELEMENTARY EDUCATION TEACHER: alert, oriented X 3 Treatment Prophylaxis Treatment Prophylaxis Oxygen: nasal cannula Diagnosis, Assessment Plan Free Text A P: Assessment: 1. Complete heart block, ventricular escape rhythm 2. Dizziness, fatigue, weakness 3. Hx aortic stenosis s/p TAVR 2022 4. Chronic Systolic HF, LVEF 40-45% 6. HTN 7. DM 8. Anemia EKG- complete heart block, ventricular escape rhythm, rate 20-30s Plan/Recommendations: - Continuous tele monitoring - Presented with low heart rate, fatigue, weakness - Patient reports that he was supposed to have a dental procedure today and when he arrived for his appointment he was told his HR and BP were low and the procedure would be canceled, he notified his candlemaker and was advised to come to ED for evaluation for PPM - Recent outpatient ECHO LVEF 40-45% - Hx persistent afib, PVI 11/2024, remained in afib post PVI, has been on BB, amiodarone for rate/rhythm control - Eliquis AC, [id number] score- 5, hold for PPM ok to resume 48 hours post PPM - Hold AV anai blocking medications, can resume post PPM - CHB, will need PPM - NPO - Hold anticoagulation - Plan for BiV PPM implantation today - Doxycycline 100mg BID x 10 days post PPM - Anticipate DC tomorrow once device check completed - Will need to FU with Dr. Vargas in EP clinic in 1-2 weeks for post op device check Discussed plan and PPM as well as indications, risks, benefits, alternatives with patient and his , verbalized understanding and in agreement with plan 03/09/25 - s/p BiV PPM ([place]) - Device interrogation - AP 100%, BiVP 100%, normal lead testing, normal function, no events - Can resume eliquis on Tuesday - Continue BB, amiodarone - Doxycycline 100mg BID x 10 days post PPM - Ok for DC from EP standpoint - Remove pressure dressing today, keep post op dressing clean,dry,intact - FU with Dr. Vargas in 1-2 weeks for post op device check Post op and FU care- - Follow up with Dr. Vargas in 1-2 weeks - NO driving x 2 weeks - Pressure dressing x 24 hours - NO arm above head or elbow above shoulder level on affected side x 3 weeks - No lifting, pushing, pulling, swinging motions with left arm x 6 weeks - Keep post op dressing clean, dry, intact x 7-10 days or until FU - No showers x 72 hours - Do not submerge incision site in water x 6 weeks - Complete antibiotics - Do not itch, pick, scrub, rub, scratch incision site - Keep incision site clean, dry, intact - Report any fever, signs of infection such as increased swelling, redness, drainage from incision site MDM per Dr. Dominic Vargas Total time taken for patient care including chart, review, lab review, imaging review, formulating management plan and counseling patient and family 60 minutes. CPT code 12662 Dominic Vargas V 03/09/25 1124: Attestations Physician Attestation Agree w/findings plan: The patient was seen and examined. I agree with the assessment and plan which was performed together with FERNANDO Vargas MD [facility] rhythm [facility] CLS EP at 0810 at 1125 RPT #:[id number] END OF REPORT [facility] 2025-03-09 07:42:00 [facility] ([facility]) Hospitalist History Physical REPORT#:[id number] REPORT STATUS: Signed REPORT INITIALIZATION DATE:03/09/25 TIME: 741 PATIENT: OLIVIA LUX UNIT #: [id number] ROOM/BED: [place] [address] : [birth year] AGE: 74 SEX: M ATTEND: Sabrina Griffin MD ADM AUTHOR: Harpreet Taylor DO REPT SERVICE DT/TIME: 03/09/25 07 * ALL edits or amendments must be made on the electronic/computer document * History of Present Illness HPI Chief complaint: Complete heart block PCP: PCP: Jerome Nicholas MD HPI: 74 year old male with history of persistent atrial fibrillation s/p PVI 11/2024, severe aortic stenosis (s/p TAVR 02/2023), systolic HF, HTN, DM who presented to ED for evaluation of bradycardia. He was advised to come to ED by his candlemaker, Dr. Nicholas due to low heart rate, noted with complete heart block, underwent pacemaker placement yesterday. Patient is sitting comfortably in bed, denies any acute complaint History Past medical history: Reports: Atrial fibrillation, Congestive heart failure, Diabetes mellitus, Hypertension, Anticoagulant therapy, Dyslipidemia. Past surgical history: Reports: Heart valve procedure, Hernia repair, Tonsillectomy. Family history: Reports: Diabetes. Alcohol use: Denies EtOH use Drug use: Denies recreational drugs Smoking status for patients 13 years old or older: Former Smoker Medication/Allergy-Vaccine Hx Allergies: Coded Allergies: No Known Allergies (01/03/23) Review of Systems All systems rev neg: except as marked (except stated in the HPI) Objective General VS/I O: Vital Signs: Date Time Temp Pulse Resp B/P B/P Pulse O2 O2 Flow FiO2 Mean Ox Delivery Rate 03/09 1104 99.0 60 94/51 65.1 92 03/09 0825 97.9 60 102/51 67.9 92 03/09 0519 60 95 03/09 0349 97.7 60 17 105/54 70.6 84 03/08 2208 97.7 60 16 109/65 79.8 93 03/08 1843 33 16 96 03/08 1731 33 128/57 96 03/08 1710 31 119/59 92 03/08 1705 30 111/55 97 03/08 1700 31 119/58 94 03/08 1636 98.7 31 14 119/58 100 Room air 24 hour I O ending at 0700: 03/09 0700 03/08 1900 Intake Total Output Total Balance Patient 125.909 kg Weight Weight Stated/Reported Measurement Method PATIENT WEIGHT: Weight (lb): Weight (oz): Weight (kg): 125.909 Medications: Active Meds + DC'd Last 24 Hrs Amiodarone HCl (CORDARONE) 200 MG BID 9A 5P PO Doxycycline Monohydrate (DOXYCYCLINE MONOHYDRATE) 100 MG Q12H PO Metoprolol Tartrate (LOPRESSOR) 25 MG Q12HR PO Hydrocodone Bitart/Acetaminophen (NORCO 5/325) 1 TAB Q4H PRN PRN PO Hydrocodone Bitart/Acetaminophen (NORCO 5/325) 2 TAB Q4H PRN PRN PO Acetaminophen (TYLENOL) 650 MG Q4H PRN PRN PO Tramadol HCl (ULTRAM) 25 MG Q6H PRN PRN PO Fentanyl Citrate (SUBLIMAZE) 0 .STK-MED ONE .ROUTE (DC) Midazolam HCl (VERSED) 0 .STK-MED ONE .ROUTE (DC) Gentamicin Sulfate (GARAMYCIN) 0 .STK-MED ONE .ROUTE (DC) Lidocaine HCl (LIDOCAINE HCL/PF) 0 .STK-MED ONE .ROUTE (DC) Sodium Bicarbonate (SODIUM BICARBONATE) 0 .STK-MED ONE IV (DC) Vancomycin HCl (VANCOMYCIN HCL) 0 .STK-MED ONE .ROUTE (DC) Physical Exam General appearance: alert, awake, oriented Neck: non-tender, normal thyroid, supple/no meningismus Cardiovascular: normal heart sounds, regular rate rhythm Respiratory: clear to auscultation, symmetric expansion Abdomen: non-tender, normal bowel sounds, soft Extremities: normal capillary refill, normal range of motion, no calf tenderness Results Findings/Data: Laboratory Tests 03/09 03/09 03/08 03/08 03/08 1058 0824 2211 1750 1700 Chemistry POC Glucose (70 - 110 MG/DL) 160 H 94 79 B-Natriuretic Peptide (0 - 100 PG/ML) 73.0 LDL Cholesterol Measurd (0 - 100 mg/dL) 44.0 03/08 1700 Chemistry Sodium (134 - 147 mEq/L) 137 Potassium (3.4 - 5.0 mEq/L) 4.5 Chloride (100 - 108 mEq/L) 99 L Carbon Dioxide (21 - 33 mEq/l) 26 Anion Gap (0 - 20) 16 BUN (7 - 25 mg/dL) 50 H Creatinine (0.6 - 1.3 mg/dL) 4.0 H Glomerular Filtr Rate (70 - 80) 14.9 L Glucose (77 - 141 mg/dL) 109 Calcium (8.0 - 10.5 mg/dL) 9.6 Magnesium (1.6 - 2.6 mg/dL) 2.80 H Total Bilirubin (0.0 - 1.0 mg/dL) 0.30 AST (8 - 34 IUnit/L) 95 H ALT (10 - 49 IUnit/L) 108 H Total Alk Phosphatase (20 - 125 IUnit/L) 106 Troponin I High Sens (0 - 54 ng/L) 68 H Total Protein (5.7 - 8.2 g/dL) 6.8 Albumin (3.4 - 5.0 g/dL) 4.00 Laboratory Tests 03/08 1700 Coagulation INR (0.8 - 1.2) 1.1 PT Patient/Control Mix (9.3 - 12.9 SECONDS) 11.8 Laboratory Tests 03/08 1700 Hematology WBC (4.5 - 11.0 x10 3/uL) 5.6 RBC (4.00 - 5.60 x10 6/uL) 3.15 L Hgb (12.5 - 16.9 g/dL) 8.8 L Hct (37.5 - 50.7 %) 29.1 L MCV (81.0 - 99.0 fL) 92.4 MCH (27.0 - 33.0 pg) 27.9 MCHC (33.0 - 37.0 g/dL) 30.2 L RDW (11.5 - 14.5 %) 16.3 H Plt Count (150 - 400 x10 3/uL) 121 L MPV (7.0 - 9.0 fL) 12.4 H Neut % (Auto) (56.0 - 77.0 %) 73.4 Lymph % (Auto) (14.0 - 32.0 %) 11.5 L [place] % (Auto) (4.8 - 9.0 %) 12.3 H Eos % (Auto) (0.3 - 3.7 %) 2.2 Baso % (Auto) (0.0 - 2.0 %) 0.4 Neut # (Auto) (2.0 - 7.6 x10 3/uL) 4.08 Lymph # (Auto) (1.0 - 3.8 x10 3/uL) 0.64 L [place] # (Auto) (0.1 - 0.8 x10 3/uL) 0.68 Eos # (Auto) (0.0 - 0.2 x10 3/uL) 0.12 Baso # (Auto) (0.0 - 0.2 x10 3/uL) 0.02 Abs Immat Gran (auto) (0.00 - 0.03 x10 3/uL) 0.01 Immature Gran % (0.0 - 2.0 %) 0.2 Nucleated RBC % (0 - 0 %) 0.0 Nucleated RBCs # (Man) (0.0 - 0.1 x10 3/uL) 0.00 Immature Plt Fraction (0.9 - 11.2 %) 3.9 Diagnosis, Assessment Plan Problem List/A P: 1. Symptomatic bradycardia 2. Junctional escape rhythm 3. A-fib 4. CAD (coronary artery disease) Free Text DxA P Notes Free Text DxA P Notes: 74 year old male with history of persistent atrial fibrillation s/p PVI 11/2024, severe aortic stenosis (s/p TAVR 02/2023), systolic HF, HTN, DM who presented to ED for evaluation of bradycardia. He was advised to come to ED by his candlemaker, Dr. Nicholas due to low heart rate, noted with complete heart block with pacemaker placed * Appreciated input from EP * Postprocedure management * Continue with antibiotics * Pain management * Will discharge home with close follow-up with EP at 1213 RPT #:[id number] END OF REPORT [facility] 2025-03-08 20:43:00 [id number] [place] [id number] PATIENT NAME: OLIVIA LUX ADMIT DATE: 03/08/25 ACCOUNT NO: [id number] ROOM NO: [facility] AGE: 74 REPORT TYPE: OPERATIVE REPORT SEX: M ADMITTING PHYSICIAN:Sabrina Griffin MD ATTENDING PHYSICIAN:Sabrina Griffin MD OPERATION DATE: 03/08/2025 PROCEDURE: Biventricular pacemaker implantation. DURALUMIN MECHANIC: Dominic Vargas MD. PREOPERATIVE DIAGNOSES: 1. Complete heart block. 2. Chronic systolic heart failure with ejection fraction 40% to 45%. 3. Anticipated right ventricular pacing more than 40%. 4. Congestive heart failure, [place] Heart Association class III. POSTOPERATIVE DIAGNOSES: 1. Complete heart block. 2. Anticipated right ventricular pacing more than 40%. 3. Chronic systolic heart failure, ejection fraction 40% to 45%. 4. Congestive heart failure, [place] Heart [employer] class III. PROCEDURES PERFORMED: 1. Biventricular pacemaker implantation. 2. Contrast venography of the CS. 3. Moderate sedation with IV Versed and fentanyl for 60 minutes. PROCEDURE IN DETAIL: The patient was brought to the electrophysiology lab in fasting and nonsedated state after informed consent was obtained. Blood pressure, oxygen, and ECG monitoring were initiated followed by placement of cardioversion patches. After the time-out, moderate sedation and prophylactic antibiotics were administered. No contrast venography was performed to limit the contrast use. The patient was prepped and draped in sterile fashion and after additional moderate sedation and generous local anesthesia, we made a 2-cm incision in the left infraclavicular area and a pocket was created during blunt dissection up to prepectoral fascia and muscle. We then achieved three venous accesses without the use of contrast under fluoroscopy guidance with confirmation of the guidewires in the IVC. We then placed RV and RA pacemaker leads using standard techniques, fluoroscopic guidance, and peel-away dilator sheaths and after adequate parameters were obtained, the leads were sewn to the prepectoral fascia and muscle using O-silk. We then accessed the CS using AL2 catheter, [employer] multipurpose LV sheath, and Wholey wire. The patient had a posterolateral branch. Contrast was used to confirm. Following this, we placed a [employer] short spiral LV lead using Whisper wire and after adequate parameters were obtained, the [employer] long LV sheath was split using PATIENT NAME: OLIVIA LUX standard techniques and the lead was sewn to the prepectoral fascia and muscle using O-silk. Pocket was flushed with antibiotic solution and the biventricular pacemaker generator was connected to the leads and was placed in the pocket followed by vancomycin powder and TYRX antibiotic pouch. Pocket was closed in running layers using 2-0, 3-0, 4-0 Vicryl sutures. Sponge and needle counts were verified. Pressure dressing was applied. No immediate complications were observed. Post-procedure, the patient's family was met in person and updated about patient's status, procedure outcome, followup plan. RECOMMENDATIONS: 1. Left arm sling for 10 days. 2. Left arm precautions for 2 months. 3. Surgical wound care precautions for 2 months. 4. Follow up in the EP clinic. DEVICE INFORMATION: [employer] biventricular pacemaker system: RA lead paced 1.1 volts at 0.40 milliseconds, 522 ohms, model 7841, serial number [id number]. RV lead paced, 0.7 volts at 0.40 milliseconds, 854 ohms, model 7842, serial number [id number]. LV lead paced, 3.2 volts at 0.40 milliseconds, LV tip 3 to RV, model 4677, serial number [id number]. Biventricular pacemaker generator model U128, serial number [id number]. Mode DDDR 60/120 ppm. Dictated By: Dominic Vargas MD Date Dictated: 03/08/2025 20:43:33 Date Transcribed: 03/08/2025 21:25:51 HG/SEN Receipt ID: [id number] Authenticated by Dominic Vargas MD On 03/09/2025 11:17:14 AM at 1117 PATIENT NAME: OLIVIA LUX [facility] 2025-03-08 17:41:00 [facility] EP Consultation Note REPORT#:[id number] REPORT STATUS: Signed REPORT INITIALIZATION DATE:03/08/25 TIME: 1741 PATIENT: OLIVIA LUX UNIT #: [id number] [address] : [birth year] AGE: 74 SEX: M ATTEND: Sabrina Griffin MD ADM AUTHOR: Evelin Cuevas COLLECTION ADVISOR REPT SERVICE DT/TIME: 03/08/25 174 * ALL edits or amendments must be made on the electronic/computer document * Balbina Cuevas 03/08/25 1741: History of Present Illness Requesting clinician: Dr. Nicholas Reason for consult: bradycardia Chief complaint: Weakness, fatigue, low HR PCP: PCP: Jerome Nicholas MD HPI: The patient is a 74 year old male with history of persistent atrial fibrillation s/p PVI 11/2024, severe aortic stenosis (s/p TAVR 02/2023), systolic HF, HTN, DM who presented to ED for evaluation of bradycardia. He was advised to come to ED by his candlemaker, Dr. Nicholas due to low heart rate. EKG showed complete heart block with ventricular escape. He was admitted for further evaluation. EP consulted for high degree AV block, evaulation for PPM. Thank you for the consultation. History - Adult longitudinal Past medical history: Reports: Atrial fibrillation, Congestive heart failure, Diabetes mellitus, Hypertension, Anticoagulant therapy, Dyslipidemia. Past surgical history: Reports: Heart valve procedure, Hernia repair, Tonsillectomy. Family history: Reports: Diabetes. Alcohol use: Denies EtOH use Drug use: Denies recreational drugs Smoking status for patients 13 years old or older: Never Smoker Allergies: Coded Allergies: No Known Allergies (01/03/23) Review of Systems Constitutional: Reports: fatigue, generalized weakness. Respiratory: Reports: HOLT (dyspnea on exertion). Cardiovascular: Denies: chest pain. Heme: Denies: bleeding. Neuro: dizziness. Objective VS/I O Laboratory Tests 03/08/25 1700: [Embedded Image Not Available] Current Medications Sig/Adeel Start time Last Medication Dose Route Stop Time Status Admin Doxycycline 100 MG Q12H 03/09 0900 AC Monohydrate PO 03/19 0859 Fentanyl Citrate 0 .STK-MED ONE 03/08 1900 DC .ROUTE Midazolam HCl 0 .STK-MED ONE 03/08 1900 DC .ROUTE Gentamicin Sulfate 0 .STK-MED ONE 03/08 1801 DC .ROUTE Lidocaine HCl 0 .STK-MED ONE 03/08 1801 DC .ROUTE Sodium Bicarbonate 0 .STK-MED ONE 03/08 180 DC IV Vancomycin HCl 0 .STK-MED ONE 03/08 1801 DC .ROUTE Last Documented: Result Date Time Pulse Ox 96 03/08 1843 Pulse 33 03/08 1843 Resp 16 03/08 1843 B/P 128/57 03/08 1731 O2 Delivery Room air 03/08 1636 Temp 37.1 03/08 163 PATIENT WEIGHT: Weight (lb): Weight (oz): Weight (kg): 125.909 General appearance: alert, awake, oriented, no acute distress Neck: non-tender Cardiovascular: CV assessment: bradycardia, irregular rhythm Respiratory: no distress Abdomen: soft Extremities: dry Neuro/ELEMENTARY EDUCATION TEACHER: alert, oriented X 3 EKG Interpretation: 3rd degree AV block Treatment Prophylaxis Treatment Prophylaxis Oxygen: nasal cannula Diagnosis, Assessment Plan Free Text A P: Assessment: 1. Complete heart block, ventricular escape rhythm 2. Dizziness, fatigue, weakness 3. Hx aortic stenosis s/p TAVR 2022 4. Chronic Systolic HF, LVEF 40-45% 6. HTN 7. DM 8. Anemia EKG- complete heart block, ventricular escape rhythm, rate 20-30s Plan/Recommendations: - Continuous tele monitoring - Presented with low heart rate, fatigue, weakness - Patient reports that he was supposed to have a dental procedure today and when he arrived for his appointment he was told his HR and BP were low and the procedure would be canceled, he notified his candlemaker and was advised to come to ED for evaluation for PPM - Recent outpatient ECHO LVEF 40-45% - Hx persistent afib, PVI 11/2024, remained in afib post PVI, has been on BB, amiodarone for rate/rhythm control - Lindsay CHEN, [id number] score- 5, hold for PPM ok to resume 48 hours post PPM - Hold AV anai blocking medications, can resume post PPM - CHB, will need PPM - NPO - Hold anticoagulation - Plan for BiV PPM implantation today - Doxycycline 100mg BID x 10 days post PPM - Anticipate DC tomorrow once device check completed - Will need to FU with Dr. Vargas in EP clinic in 1-2 weeks for post op device check Discussed plan and PPM as well as indications, risks, benefits, alternatives with patient and his , verbalized understanding and in agreement with plan Post op and FU care- - Follow up with Dr. Vargas in 1-2 weeks - NO driving x 2 weeks - Pressure dressing x 24 hours - NO arm above head or elbow above shoulder level on affected side x 3 weeks - No lifting, pushing, pulling, swinging motions with left arm x 6 weeks - Keep post op dressing clean, dry, intact x 7-10 days or until FU - No showers x 72 hours - Do not submerge incision site in water x 6 weeks - Complete antibiotics - Do not itch, pick, scrub, rub, scratch incision site - Keep incision site clean, dry, intact - Report any fever, signs of infection such as increased swelling, redness, drainage from incision site MDM per Dr. Dominic Vargas Total time taken for patient care including chart, review, lab review, imaging review, formulating management plan and counseling patient and family 60 minutes. CPT code 88388 [id number] Score [id number] Score Response Value CHF: Yes 1 HTN: Yes 1 age greater than 75 years: Yes 2 age between 65 and 74 yrs: No 0 hx stroke, TIA, or TE: No 0 vascular disease: No 0 diabetes mellitus: Yes 1 female: No 0 Total 5 Plan discussed with: patient, family Code status: full code Dominic Vargas V 03/09/25 1124: Attestations Physician Attestation Agree w/findings plan: The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 eECHOCARDIOGRAM REPORT SEX: M ADMITTING PHYSICIAN:Sabrina Griffin MD ATTENDING PHYSICIAN:Sabrina Griffin MD *[address] [address] Limited Transthoracic Echocardiogram Patient: Olivia Lux Study Date: 11/29/2024 BP: 77 / 36 URN: [id number] Location: : 1950 Age: 74 Gender: M Height: 73 in / 185.4 cm Weight: 275 lb / 124.7 kg BMI/BSA: 36.3 kg/m 2 / 2.58 m 2 *Ordering Physician: * Evelin Cuevas *Interpreting Physician: * Jose Sánchez MD *Steam Shovel Operating Engineer: * Lily Camargo Indications: Tachycardia over 200. Study data: Transthoracic echocardiogram, limited study. Procedure: A transthoracic echocardiogram was performed. Image quality was adequate. Limited 2D and limited spectral Doppler. Location: Bedside. Patient status: Inpatient. Patient room number: 3358. Study status: Routine. Heart rate: 99 bpm. Findings Left ventricle: The cavity size is severely dilated. Wall thickness is mildly increased. Systolic function is severely reduced. The estimated ejection fraction is 30-34%. Regional wall motion: There is akinesis of the entire inferior wall. Left PATIENT NAME: OLIVIA LUX ventricular diastolic function parameters are indeterminate. Right ventricle: Estimated TAPSE is 1.5 cm. The cavity size is dilated. Systolic function is mildly reduced. Left atrium: The atrium is moderately dilated. Right atrium: The atrium is dilated. Aorta: Aorta: The aorta is normal. Aortic valve: A bioprosthetic valve is present. Velocity is within limits of normal for the valve type. There is no evidence of stenosis. There is no regurgitation. Mitral valve: The valve is structurally normal. There is no evidence of stenosis. There is mild regurgitation. Tricuspid valve: The valve is structurally normal. There is mild regurgitation. Pericardium: A prominent pericardial fat pad is present. A trivial pericardial effusion is identified. Systemic veins: Inferior vena cava: The IVC is not visualized. Measurements Left ventricle Value Ref 11/27/2024 DONYA, LAX 7.0 cm 4.2 - 5.8 4.6 ESD, LAX 6.0 cm 2.5 - 4.0 4.3 FS, LAX 14 % 25 - 43 23 DONYA major ax, A2C 7.8 cm --------- 9.7 ESD major ax, A2C 7.6 cm --------- 7.6 IVS, ED 0.8 cm 0.6 - 1.0 0.8 PW, ED 1.2 cm 0.6 - 1.0 1.1 IVS/PW, ED 0.64 --------- 0.78 EF 29 % 52 - 72 46 LVOT Value Ref 11/27/2024 Peak adina, S 0.64 m/sec --------- 0.45 Mean adina, S 0.49 m/sec --------- 0.34 VTI, S 8.2 cm --------- 12.0 Peak grad, S 2 mm Hg --------- 1 Mean grad, S 1 mm Hg --------- 1 Right ventricle Value Ref 11/27/2024 DONYA, LAX 2.6 cm --------- TAPSE, MM 1.8 cm >=1.7 1.5 Left atrium Value Ref 11/27/2024 Vol, ES, 1-p A4C 112 ml 18 - 58 97 Vol/bsa, ES, 1-p A4C 43 ml/m 2 12 - 37 37 Vol/bsa, ES, A/L 45 ml/m 2 16 - 34 38 Right atrium Value Ref 11/27/2024 Area, ES 19 cm 2 10 - 18 25 SI dim, ES, A4C 6.4 cm 3.4 - 5.3 6.7 Vol, ES, A/L 50 ml --------- 77 Vol, ES, 1-p A4C 49 ml --------- 78 PATIENT NAME: OLIVIA LUX Vol/bsa, ES, 1-p A4C 19 ml/m 2 11 - 39 30 Aortic valve Value Ref 11/27/2024 Peak v, S 2 m/sec --------- 2.4 Mean v, S 1.58 m/sec --------- 1.84 VTI, S 32.9 cm --------- 60.9 Mean grad, S 11 mm Hg --------- 15 Peak grad, S 16.8 mm Hg --------- 22.6 LVOT/AV, VTI ratio 0.25 --------- 0.2 LVOT/AV, Vpeak ratio 0.31 --------- 0.19 Conclusions Summary: 1. Left ventricle: The cavity size is severely dilated. Wall thickness is mildly increased. Systolic function is severely reduced. The estimated ejection fraction is 30-34%. Left ventricular diastolic function parameters are indeterminate. 2. Right ventricle: The cavity size is dilated. Systolic function is mildly reduced. 3. Left atrium: The atrium is moderately dilated. 4. Right atrium: The atrium is dilated. 5. Aortic valve: A bioprosthetic valve is present. 6. Mitral valve: There is mild regurgitation. 7. Regional wall motion: There is akinesis of the entire inferior wall. Electronically signed by Jose Sánchez MD 11/30/2024 08:42 at 0842 PATIENT NAME: OLIVIA LUX [facility] 2024-11-30 07:40:00 [facility] Cardiology Consultation REPORT#:[id number] REPORT STATUS: Signed REPORT INITIALIZATION DATE:11/30/24 TIME: 07 PATIENT: OLIVIA LUX UNIT #: [id number] ROOM/BED: [place] [address] : [birth year] AGE: 74 SEX: M ATTEND: Sabrina Griffin MD ADM AUTHOR: Kay Mendez AGACNP REPT SERVICE DT/TIME: 11/30/24 0740 * ALL edits or amendments must be made on the electronic/computer document * History of Present Illness HPI Reason for consult: Atrial fibrillation PCP: PCP: Jerome Nicholas MD HPI: 74 YO male with MH of chronic Afib, s/p Aubrey, HFrEF, DM, HTN. He underwent elective PVI on 11/27/2024. He developed post procedural bradycardia and hypotension and was admitted to CCU. The next day patient was trasnsferred to CVI where he went into afib RVR. OPTICAL WORKER was called. The patient was placed on amiodarone gtt, and BB was resumed. He converted to sinus rhythm. Post PVI echocardiogram showed LVEF 30-35%, trivial pericardial effusion. The patient is doing better today. Hx Obtained From Patient History - Adult longitudinal Past medical history: Reports: Atrial fibrillation, Congestive heart failure, Diabetes mellitus, Hypertension, Anticoagulant therapy, Dyslipidemia. Past surgical history: Reports: Heart valve procedure, Hernia repair, Tonsillectomy. Family history: Reports: Diabetes. Alcohol use: Denies EtOH use Drug use: Denies recreational drugs Smoking status for patients 13 years old or older: Former Smoker Home medications: Home Medications: ROSUVASTATIN 10 MG PO BEDTIME APIXABAN (ELIQUIS) 5 MG PO BID Sacubitril/Valsartan (Entresto 97 MG-103 MG Tablet) 1 EACH PO BID METOPROLOL TARTRATE (LOPRESSOR) 50 MG PO BID TORSEMIDE (DEMADEX) 20 MG PO DAILY GABAPENTIN (NEURONTIN) 600 MG PO TID metFORMIN XR (GLUCOPHAGE XR) 750 MG PO DAILY EMPAGLIFLOZIN (JARDIANCE) 25 MG PO DAILY OMEPRAZOLE ER 20 MG PO DAILY FAMOTIDINE (PEPCID AC) 10 MG PO DAILY POTASSIUM GLUCONATE (POTASSIUM) (Unknown Dose) PO DAILY MAGNESIUM OXIDE (MAG-OXIDE) (Unknown Dose) PO DAILY IBUPROFEN (ADVIL) 200 MG PO Q4H PRN PRN PAIN FERROUS SULFATE (FEOSOL) 325 MG PO DAILY CYANOCOBALAMIN (VITAMIN B-12) 1,000 MCG PO DAILY ASCORBIC ACID (VITAMIN C) 1,600 MG PO DAILY CALCIUM CITRATE/VITAMIN D3 (CALCIUM CITRATE/VITAMIN D3 200 MG/250 UNITS) 1 TAB PO DAILY ZINC ACETATE (GALZIN) 50 MG PO BID ALLOPURINOL (ZYLOPRIM) 300 MG PO BID TIRZEPATIDE (MOUNJARO PEN (2mL)) 2.5 MG SUBQ Q7D guaiFENesin ER (MUCINEX) 600 MG PO Q12H LORATADINE (CLARITIN) 10 MG PO DAILY ACETAMINOPHEN (TYLENOL) 325 MG PO Q6H PRN PRN PAIN MELATONIN 1 TAB SL BEDTIME MULTIVITAMIN (MULTIPLE VITAMIN) 1 TAB PO DAILY ASPIRIN EC (ECOTRIN) 81 MG PO DAILY MIDODRINE (PROAMATINE) 5 MG PO BID 9A 5P AMIODARONE (PACERONE) 400 MG PO BID 9A 5P METOPROLOL TARTRATE (LOPRESSOR) 12.5 MG PO Q6H AMIODARONE (PACERONE) 200 MG PO BID METOPROLOL TARTRATE (LOPRESSOR) 25 MG PO BID Allergies: Coded Allergies: No Known Allergies (01/03/23) Ambulatory status: Independent Review of Systems Additional notes: As stated in HPI Objective General VS/I O: Vital Signs: Date Time Temp Pulse Resp B/P B/P Pulse O2 O2 Flow FiO2 Mean Ox Delivery Rate 11/30 0727 36.9 92 13 110/60 0.0 97 Room air 11/30 0356 36.6 90 18 117/81 92.8 95 11/29 2344 36.7 78 18 113/60 0.0 98 Room air 11/29 1844 36.7 92 18 110/60 0.0 95 Room air 11/29 1626 36.7 94 14 93/57 0.0 97 11/29 1219 36.7 97 14 77/36 0.0 97 11/29 0946 36.8 99 20 83/49 0.0 96 11/29 0944 98 16 83/49 11/29 0942 97 Nasal 3 cannula 11/29 0941 175 16 80/50 11/29 0900 Nasal 2 cannula 24 hour I O ending at 0700: 11/30 0700 11/29 1900 Intake Total 700.00 Output Total 400 Balance -400 700.00 Intake, IV 300.00 Intake, Oral 400 Number 1 2 Bowel Movements Number Voids 5 Output, Urine 400 Patient 171.8 kg Weight PATIENT WEIGHT: Weight (lb): 378 Weight (oz): 12.07 Weight (kg): 171.800 Medications: Active Meds + DC'd Last 24 Hrs Midodrine (PROAMATINE) 5 MG BID 9A 5P PO Amiodarone HCl (CORDARONE) 200 MG BID 9A 5P PO (CAN) Metoprolol Tartrate (LOPRESSOR) 12.5 MG Q6H PO Amiodarone HCl (NEXTERONE 360MG/D5W 200ML) 200 ML ASDIR IV (CKD) Amiodarone HCl (NEXTERONE 150MG/D5W 100ML) 100 ML STAT STA IV (DC) Amiodarone HCl (AMIODARONE HCL) 400 MG BID 9A 5P PO (CKD) Metoprolol Tartrate (LOPRESSOR) 5 MG Q2H PRN PRN IV Metoprolol Tartrate (LOPRESSOR) 25 MG Q12HR PO (DC) Pantoprazole (PROTONIX) 40 MG DAILY 0600 PO Amiodarone HCl (CORDARONE) 200 MG DAILY PO (DC) Ascorbic Acid (ASCORBIC ACID) 1,500 MG DAILY PO Aspirin (ASPIRIN) 81 MG DAILY PO Ferrous Sulfate (FERROUS SULFATE) 325 MG DAILY PO Loratadine (CLARITIN) 10 MG DAILY PO Multivitamins (TAB-A-DANYELL) 1 TAB DAILY PO Polyethylene Glycol (MIRALAX) 17 GM DAILY PO Torsemide (DEMADEX) 20 MG DAILY PO Allopurinol (ZYLOPRIM) 300 MG BID PO Apixaban (ELIQUIS 5MG TABLET) 5 MG BID PO Guaifenesin (MUCINEX 600MG TAB SA) 600 MG Q12HR PO Insulin Human Lispro (Admelog) 0 AC HS SUBQ Metoprolol Tartrate (LOPRESSOR) 50 MG BID PO (DC) Mupirocin (BACTROBAN 2% 22 GM OINTMENT) 1 APPLIC BID NASAL Rosuvastatin Calcium (CRESTOR) 10 MG BEDTIME PO Sacubitril/Valsartan (Entresto 97MG/103MG TAB) 1 TAB BID PO (DA) Dextrose/Water (DEXTROSE 10% IN WATER) 125 ML ASDIR PRN IV (CKD) Dextrose/Water (DEXTROSE 10% IN WATER) 250 ML ASDIR PRN IV (CKD) Glucagon (GLUCAGON) 1 MG ASDIR PRN IM Ondansetron HCl (ZOFRAN) 4 MG Q6H PRN PRN IV Sodium Chloride (SODIUM CHLORIDE) 10 ML ASDIR IV Acetaminophen (TYLENOL) 325 MG Q6H PRN PRN PO Ibuprofen (IBUPROFEN) 200 MG Q4H PRN PRN PO Physical Exam General appearance: alert, awake, oriented, no acute distress Neck: non-tender, no JVD Cardiovascular: CV assessment: irregular rhythm Respiratory: clear to auscultation, no distress Abdomen: soft, non-tender, normal bowel sounds, no distention Genitourinary: no urinary catheter Lower extremity: LE assessment: no calf tenderness, no edema Musculoskeletal: full range of motion, normal inspection Neuro/ELEMENTARY EDUCATION TEACHER: alert, oriented X 3, normal speech Skin: dry, intact, normal color Psychiatry: normal affect, normal judgment/insight, normal mood, no hallucinations Results Findings/Data: Laboratory Tests 11/30 1737 1624 1215 Chemistry Sodium (134 - 147 mEq/L) 145 Potassium (3.4 - 5.0 mEq/L) 3.4 Chloride (100 - 108 mEq/L) 106 Carbon Dioxide (21 - 33 mEq/l) 25 Anion Gap (0 - 20) 17 BUN (7 - 25 mg/dL) 28 H Creatinine (0.6 - 1.3 mg/dL) 1.4 H Glomerular Filtr Rate (70 - 80) 52.4 L Glucose (77 - 141 mg/dL) 123 POC Glucose (70 - 110 MG/DL) 163 H 126 H 287 H 138 H Calcium (8.0 - 10.5 mg/dL) 9.6 Ionized Calcium Charissa (1.09 - 1.30 MMOL/L) 1.19 Phosphorus (2.5 - 4.9 MG/DL) 3.7 Magnesium (1.6 - 2.6 mg/dL) 1.93 Total Bilirubin (0.0 - 1.0 mg/dL) 0.40 AST (8 - 34 IUnit/L) 28 ALT (10 - 49 IUnit/L) 11 Total Alk Phosphatase (20 - 125 IUnit/L) 54 Total Protein (5.7 - 8.2 g/dL) 6.7 Albumin (3.4 - 5.0 g/dL) 4.00 11/29 0944 Chemistry POC Glucose (70 - 110 MG/DL) 149 H Laboratory Tests 11/30 0456 Hematology WBC (4.5 - 11.0 x10 3/uL) 5.3 RBC (4.00 - 5.60 x10 6/uL) 3.44 L Hgb (12.5 - 16.9 g/dL) 9.9 L Hct (37.5 - 50.7 %) 30.9 L MCV (81.0 - 99.0 fL) 89.8 MCH (27.0 - 33.0 pg) 28.8 MCHC (33.0 - 37.0 g/dL) 32.0 L RDW (11.5 - 14.5 %) 15.3 H Plt Count (150 - 400 x10 3/uL) 142 L MPV (7.0 - 9.0 fL) 12.6 H Neut % (Auto) (56.0 - 77.0 %) 71.2 Lymph % (Auto) (14.0 - 32.0 %) 13.9 L [place] % (Auto) (4.8 - 9.0 %) 12.4 H Eos % (Auto) (0.3 - 3.7 %) 1.7 Baso % (Auto) (0.0 - 2.0 %) 0.4 Neut # (Auto) (2.0 - 7.6 x10 3/uL) 3.80 Lymph # (Auto) (1.0 - 3.8 x10 3/uL) 0.74 L [place] # (Auto) (0.1 - 0.8 x10 3/uL) 0.66 Eos # (Auto) (0.0 - 0.2 x10 3/uL) 0.09 Baso # (Auto) (0.0 - 0.2 x10 3/uL) 0.02 Abs Immat Gran (auto) (0.00 - 0.03 x10 3/uL) 0.02 Immature Gran % (0.0 - 2.0 %) 0.4 Nucleated RBC % (0 - 0 %) 0.0 Nucleated RBCs # (Man) (0.0 - 0.1 x10 3/uL) 0.00 Laboratory Tests 11/30 0456 Chemistry Magnesium (1.6 - 2.6 mg/dL) 1.93 Results: labs reviewed, vital signs reviewed, rhythm personally rev'd Diagnosis, Assessment Plan Free Text DxA P Notes Free Text DxA P Notes: 74 YO male with MH of chronic Afib, s/p Aubrey, HFrEF, DM, HTN. He underwent elective PVI on 11/27/2024. He developed post procedural bradycardia and hypotension and was admitted to CCU. The next day patient was trasnsferred to CVI where he went into afib RVR. OPTICAL WORKER was called. The patient was placed on amiodarone gtt, and BB was resumed. He converted to sinus rhythm. Post PVI echocardiogram showed LVEF 30-35%, trivial pericardial effusion. The patient is doing better today. 1. Chronic atrial fibrillation s/p PVI * tachy-shekhar episode after PVI, currently back to sinus rhythm * post procedure echo LVEF 30-34%, trivial pericardial effusion * continue Eliquis, amiodarone, and metoprolol 2. Post procedural hypotension and bradycardia - resolved * hold Entresto for one more day, if BP >110mmHg tomorrow can resume Entresto 3. Chronic HFrEF - no exacerbation * Echo LVEF 30-34%, if no improvement in LVEF in 3 months he should get ICD * GDMT as ordered 4. History of TAVR * stable OK to DC home. Outpatient follow-up with Dr. Nicholas. Medical decision making by Dr. Burnett. at 1304 at 1339 RPT #:[id number] END OF REPORT [facility] 2024-11-29 18:43:00 [facility] ([facility]) EP Progress Note REPORT#:[id number] REPORT STATUS: Signed REPORT INITIALIZATION DATE:11/29/24 TIME: 1842 PATIENT: OLIVIA LUX UNIT #: [id number] ROOM/BED: [place] [address] : 49 AGE: 74 SEX: M ATTEND: Sabrina Griffin MD ADM AUTHOR: Evelin Cuevas COLLECTION ADVISOR REPT SERVICE DT/TIME: 11/29/241842 * ALL edits or amendments must be made on the electronic/computer document * Balbina Cuevas 11/29/24 184: Subjective Chief complaint: awake and alert, feeling better Objective General VS/I O Laboratory Tests 11/29/24 0315: [Embedded Image Not Available] Current Medications Sig/Adeel Start time Last Medication Dose Route Stop Time Status Admin Amiodarone HCl 200 MG BID 9A 5P 11/29 1700 CAN PO 02/27 1659 Metoprolol Tartrate 12.5 MG Q6H 11/29 1700 AC PO 02/27 1659 Amiodarone HCl 200 ML ASDIR 11/29 1100 CKD 11/29 IV 02/27 1059 1738 Amiodarone HCl 100 ML STAT STA 11/29 1055 DC 11/29 IV 11/29 1104 1118 Amiodarone HCl 400 MG BID 9A 5P 11/29 1000 CKD 11/29 PO 02/27 0959 1738 Metoprolol Tartrate 5 MG Q2H PRN PRN 11/29 0800 AC 11/29 IV 02/27 0759 0644 Metoprolol Tartrate 25 MG Q12HR 11/28 2100 DC 11/28 PO 02/26 Pantoprazole 40 MG DAILY 11/28 1830 AC 11/29 PO 02/26 1829 0707 Amiodarone HCl 200 MG DAILY 11/28 1445 DC 11/28 PO 02/26 1444 1713 Ascorbic Acid 1,500 MG DAILY 11/28 0900 AC 11/29 PO 02/26 0859 1010 Aspirin 81 MG DAILY 11/28 0900 AC 11/29 PO 02/26 0859 1009 Ferrous Sulfate 325 MG DAILY 11/28 0900 AC 11/29 PO 02/26 0859 1009 Loratadine 10 MG DAILY 11/28 0900 AC 11/29 PO 02/26 0859 1009 Multivitamins 1 TAB DAILY 11/28 0900 AC 11/29 PO 02/26 0859 1009 Polyethylene Glycol 17 GM DAILY 11/28 0900 AC 11/28 PO 02/26 0859 0905 Torsemide 20 MG DAILY 11/28 0900 AC 11/29 PO 02/26 0859 1118 Allopurinol 300 MG BID 11/27 2100 AC 11/29 PO 02/25 2059 1009 Apixaban 5 MG BID 11/27 2100 AC 11/29 PO 02/25 2059 1009 Guaifenesin 600 MG Q12HR 11/27 2100 AC 11/29 PO 02/25 2059 1009 Insulin Human Lispro 0 AC HS 11/27 2100 AC SUBQ 02/25 2059 Metoprolol Tartrate 50 MG BID 11/27 2100 DC PO 02/25 2059 Mupirocin 1 APPLIC BID 11/27 2100 AC 11/28 NASAL 12/02 0901 203 Rosuvastatin Calcium 10 MG BEDTIME 11/27 2100 AC 11/28 PO 02/25 Sacubitril/Valsartan 1 TAB BID 11/27 2100 AC 11/28 PO 02/25 2059 0905 Dextrose/Water 125 ML ASDIR PRN 11/27 1700 CKD IV 02/25 1659 Dextrose/Water 250 ML ASDIR PRN 11/27 1700 CKD IV 02/25 1659 Glucagon 1 MG ASDIR PRN 11/27 1700 AC IM 02/25 1659 Ondansetron HCl 4 MG Q6H PRN PRN 11/27 1700 AC IV 02/25 1659 Sodium Chloride 10 ML ASDIR 11/27 1700 AC IV 02/25 1659 Acetaminophen 325 MG Q6H PRN PRN 11/27 1300 AC PO 02/25 1259 Ibuprofen 200 MG Q4H PRN PRN 11/27 1300 AC PO 02/25 1259 Vancomycin HCl 2,000 MG PREOP ONCALL 11/27 0600 DC Sodium Chloride 500 ML IV 12/04 0559 Last Documented: Result Date Time Pulse Ox 97 11/29 1626 B/P 93/57 11/29 1626 B/P Mean 0.0 11/29 162 Temp 36.7 11/29 162 Pulse 94 11/29 1626 Resp 14 11/29 162 O2 Delivery Nasal cannula 11/29 09 O2 Flow Rate 3 11/29 0942 24 hour I O ending at 0700: 11/29 0700 11/28 1900 Intake Total 240 720 Output Total 900 Balance 240 -180 Intake, Oral 240 720 Number Voids 1 2 Output, Urine 900 PATIENT WEIGHT: Weight (lb): 341 Weight (oz): 11.46 Weight (kg): 155.000 Physical Exam General appearance: alert, awake, oriented, no acute distress HEENT: mucosal membranes moist Cardiovascular: CV assessment: irregular rhythm Respiratory: no distress Abdomen: soft Musculoskeletal: normal inspection Neuro/ELEMENTARY EDUCATION TEACHER: alert, oriented X 3 EKG Interpretation: atrial fibrillation Treatment Prophylaxis Treatment Prophylaxis Oxygen: room air Diagnosis, Assessment Plan Free Text A P: Assessment: 1. Persistent atrial fibrillation, refractory to medical therapy 2. Shortness of breath 3. Palpitations 4. Hx aortic stenosis s/p TAVR 2022 5. Systolic HF, LVEF 35-39% 6. HTN 7. DM 8. Bradycardia, hypotension post PVI abaltion 9. Anemia EKG- NSR 1st degree AV block Plan/Recommendations: - Continuous tele monitoring - Presented for outpatient PVI yesterday, was admitted to CCU post procedure due to hypotension and bradycardia - On tele NSR, PAF - BB on hold due to bradycardia, bradycardia resolved, will resume low dose BB as tolerated, low dose amidoarone - Eliquis AC - Weaned off of dopamine - BP stable - Awake and alert - Ok for transfer out of ICU from EP standpoint - Monitor overnight, if heart rate/rhythm stable overnight consider DC tomorrow - EKG in AM - Will follow 11/29/24 - On tele afib, V rate not well controlled - Rapid response called this morning for afib RVR - Patient is awake and alert, asymptomatic - BP soft, cardiac meds were held this AM due to hypotension - Amiodarone bolus and drip started, continue drip per protocol, will transition to PO amiodarone - BB as tolerated, hold parameters - Eliquis AC - Limited ECHO to rule out effusion - Continue medical therapy for rate/rhythm control - If heart rate better controlled overnight may consider discharge tomorrow - Will follow Discussed plan with patient and MDM per Dr. Bernard Arias Total time taken for patient care including chart, review, lab review, imaging review, formulating management plan and counseling patient and family 60 minutes. CPT code 97890 Code status: full code Plan discussed with: patient Bernard Galicia 11/30/24 1026: Attestations Physician Attestation Agree w/findings plan: Agree with the findings and plan as documented by Evelin Cuevas COLLECTION ADVISOR at 1849 at 1028 RPT #:[id number] END OF REPORT [facility] 2024-11-29 10:43:00 [id number] [place] [id number] PATIENT NAME: OLIVIA LUX ADMIT DATE: 11/27/24 ACCOUNT NO: [id number] ROOM NO: [facility] AGE: 74 REPORT TYPE: eELECTROCARDIOGRAM REPORT SEX: M ADMITTING PHYSICIAN:Sabrina Griffin MD ATTENDING PHYSICIAN:Sabrina Griffin MD Order: [id number] Test Reason : TACHY Test Date/Time Stamp: TueNov 29 2024 10:43:24 Blood Pressure : / mmHG Vent. Rate : 149 BPM Atrial Rate : 147 BPM P-R Int : 000 ms QRS Dur : 132 ms QT Int : 302 ms P-R-T Axes : 000 103 -40 degrees QTc Int : 475 ms Atrial fibrillation with rapid ventricular response Rightward axis Nonspecific intraventricular block T wave abnormality, consider inferior ischemia Abnormal ECG When compared with ECG of 29-NOV-2024 09:08, Significant changes have occurred Confirmed by Jose Sánchez ([id number]) on 11/30/2024 7:02:57 AM Referred By: Sabrina Griffin Confirmed by:Jose Sánchez at 0702 PATIENT NAME: OLIVIA LUX [facility] 2024-11-29 09:07:00 [id number] [place] [address] PATIENT NAME: OLIVIA LUX ADMIT DATE: 11/27/24 ACCOUNT NO: [id number] ROOM NO: [id number] AGE: 74 REPORT TYPE: eELECTROCARDIOGRAM REPORT SEX: M ADMITTING PHYSICIAN:Sabrina Griffin MD ATTENDING PHYSICIAN:Sabrina Griffin MD Order: [id number] Test Reason : ARRHYTHMIA Test Date/Time Stamp: TueNov 29 2024 09:07:59 Blood Pressure : / mmHG Vent. Rate : 093 BPM Atrial Rate : 092 BPM P-R Int : 000 ms QRS Dur : 144 ms QT Int : 376 ms P-R-T Axes : 000 087 -43 degrees QTc Int : 467 ms Atrial fibrillation with ventricular escape complexes Nonspecific intraventricular block T wave abnormality, consider inferior ischemia Abnormal ECG When compared with ECG of 28-NOV-2024 04:40, Significant changes have occurred Confirmed by Jose Sánchez ([id number]) on 11/30/2024 7:02:53 AM Referred By: Sabrina Griffin Confirmed by:Jose Sánchez at 0702 PATIENT NAME: OLIVIA LUX [facility] 2024-11-29 08:02:00 [facility] ([facility]) Internal Medicine Prog. Note REPORT#:[id number] REPORT STATUS: Signed REPORT INITIALIZATION DATE:11/29/24 TIME: 08 PATIENT: OLIVIA LXU UNIT #: [id number] ROOM/BED: [place] [address] : 49 AGE: 74 SEX: M ATTEND: aSbrina Griffin MD ADM AUTHOR: Sabrina Griffin MD REPT SERVICE DT/TIME: 11/29/24 0802 * ALL edits or amendments must be made on the electronic/computer document * Objective Physical Exam General appearance: alert, awake, oriented Head/Eyes: atraumatic, EOMI, normocephalic, PERRLA ENT: normal pharynx Neck: non-tender, no JVD Cardiovascular: normal heart sounds, regular rate rhythm, no murmur Respiratory: aerating well, clear to auscultation, symmetric expansion, no distress Abdomen: non-tender, normal bowel sounds, soft, no distention Extremities: Extremities: no edema Musculoskeletal: normal inspection Neuro/ELEMENTARY EDUCATION TEACHER: alert, oriented x 3 Diagnosis, Assessment Plan Problem List/A P: 1. HTN (hypertension) 2. HLD (hyperlipidemia) 3. CAD (coronary artery disease) 4. A-fib Free Text DxA P Notes Free text DxA P notes: medicaitons reviewed, continue same resume home meds a fib - per cards/EP follow lab supportive care at 2321 RPT #:[id number] END OF REPORT [facility] 2024-11-28 20:33:00 [id number] [place] [address] PATIENT NAME: OLIVIA LUX ADMIT DATE: 11/27/24 ACCOUNT NO: [id number] ROOM NO: [facility] [place], [place] AGE: 74 REPORT TYPE: eECHOCARDIOGRAM REPORT SEX: M ADMITTING PHYSICIAN:Sabrina Griffin MD ATTENDING PHYSICIAN:Sabrina Griffin MD *[place] [address] Transthoracic Echocardiogram Patient: Olivia Lux Study Date: 11/27/2024 BP: 100 / 55 URN: [id number] Location: : 1950 Age: 74 Gender: M Height: 74 in / 188 cm Weight: 285 lb / 129.3 kg BMI/BSA: 36.6 kg/m 2 / 2.64 m 2 *Ordering Physician: * Bernard Galicia MD *Interpreting Physician: * Jose Sánchez MD *Steam Shovel Operating Engineer: * RAHUL Kennedy Indications: S/P PVI ABLATION, SHEKHAR. Study data: Transthoracic echocardiogram. Procedure: A transthoracic echocardiogram was performed. Images were obtained using a [employer] cardiac ultrasound machine. The study was technically limited due to restricted patient mobility. Intravenous contrast (Definity) 2 mls was administered. Complete 2D, complete spectral Doppler, and color Doppler. Location: EP laboratory. Patient status: Inpatient. Patient room number: 3. Study status: Stat. Heart rate: 40 bpm. Findings Left ventricle: The cavity size is normal. Wall thickness is mildly increased. Systolic function is mildly to moderately reduced. The estimated PATIENT NAME: OLIVIA LUX ejection fraction is 40-44%. There is mild diffuse hypokinesis. Regional wall motion abnormalities: Hypokinesis of the anterolateral wall. Cannot assess LV diastolic function. Right ventricle: The cavity size is normal. Systolic function is mildly reduced. Estimated TAPSE is 1.4 cm. Left atrium: The atrium is moderately dilated. Right atrium: The atrium is dilated. Aorta: Aorta: The aorta is normal. Aortic valve: A bioprosthetic valve is present. Velocity is within limits of normal for the valve type. There is no evidence of stenosis. There is no regurgitation. Mitral valve: The valve is structurally normal. There is no evidence of stenosis. There is mild regurgitation. Tricuspid valve: The valve is structurally normal. There is mild regurgitation. Pulmonic valve: The valve is structurally normal. There is no regurgitation. Pericardium: A prominent pericardial fat pad is present. There is no pericardial effusion. Systemic veins: Inferior vena cava: The IVC is not visualized. Measurements Left ventricle Value Ref 02/23/2023 DONYA, LAX 4.6 cm 4.2 - 5.8 6.4 ESD, LAX 4.3 cm 2.5 - 4.0 5.2 FS, LAX 23 % 25 - 43 18 DONYA major ax, A2C 9.7 cm --------- 9.0 ESD major ax, A2C 7.6 cm --------- IVS, ED 0.8 cm 0.6 - 1.0 1.2 PW, ED 1.1 cm 0.6 - 1.0 1.3 IVS/PW, ED 0.78 --------- 0.95 EF 46 % 52 - 72 37 LVOT Value Ref 02/23/2023 Diam, S 2.22 cm --------- Area 3.9 cm 2 --------- 3.5 Peak adina, S 0.45 m/sec --------- 1.81 Mean adina, S 0.34 m/sec --------- 1.19 VTI, S 12.0 cm --------- 38.6 Peak grad, S 1 mm Hg --------- 13 Mean grad, S 1 mm Hg --------- 7 SV 47 ml --------- 136 Qs 1.57 L/min --------- 11.11 Qs/bsa 0.6 L/(min-m 2) --------- 4.1 SV/bsa 18 ml/m 2 --------- 51 Right ventricle Value Ref 02/23/2023 TAPSE, MM 1.5 cm >=1.7 RVOT Value Ref 02/23/2023 Peak v, S 0.68 m/sec --------- PATIENT NAME: OLIVIA LUX Peak grad, S 2 mm Hg --------- 5 Left atrium Value Ref 02/23/2023 AP dim, ES 4.8 cm 3.0 - 4.0 Vol/bsa, S 43 ml/m 2 16 - 34 Vol, ES, 1-p A4C 97 ml 18 - 58 75 Vol/bsa, ES, 1-p A4C 37 ml/m 2 12 - 37 28 Vol, ES, 2-p 115 ml --------- 95 Vol/bsa, ES, 2-p 43 ml/m 2 16 - 34 35 Vol/bsa, ES, A/L 38 ml/m 2 16 - 34 28 Right atrium Value Ref 02/23/2023 Area, ES 25 cm 2 10 - 18 SI dim, ES, A4C 6.7 cm 3.4 - 5.3 Vol, ES, A/L 77 ml --------- Vol, ES, 1-p A4C 78 ml --------- Vol/bsa, ES, 1-p A4C 30 ml/m 2 11 - 39 Aortic valve Value Ref 02/23/2023 Peak v, S 2.4 m/sec --------- 2.8 Mean v, S 1.84 m/sec --------- 1.9 VTI, S 60.9 cm --------- 59.3 Mean grad, S 15 mm Hg --------- 17 Peak grad, S 22.6 mm Hg --------- 30.7 LVOT/AV, VTI ratio 0.2 --------- 0.65 [place], VTI 0.77 cm 2 --------- 2.29 LVOT/AV, Vpeak ratio 0.19 --------- 0.65 [place], Vmax 0.74 cm 2 --------- 2.30 Mitral valve Value Ref 02/23/2023 Peak E 1.39 m/sec --------- 1.5 Peak A 0.26 m/sec --------- Decel time 208 ms --------- PHT 77 ms --------- 52 Mean grad, D 2 mm Hg --------- Peak grad, D 10.3 mm Hg --------- 9.1 Peak E/A ratio 5.35 --------- MVA, PHT 2.8 cm 2 --------- 4.2 Tricuspid valve Value Ref 02/23/2023 TR peak v 1.9 m/sec <=2.8 2.7 Peak RV-RA grad, S 14 mm Hg --------- 28 Aortic root Value Ref 02/23/2023 Root diam 2.9 cm 3.1 - 4.6 Ascending aorta Value Ref 02/23/2023 AAo AP diam, S 2.9 cm --------- Conclusions Summary: PATIENT NAME: OLIVIA LUX 1. Left ventricle: The cavity size is normal. Wall thickness is mildly increased. Systolic function is mildly to moderately reduced. The estimated ejection fraction is 40-44%. There is mild diffuse hypokinesis. Hypokinesis of the anterolateral wall. 2. Right ventricle: Systolic function is mildly reduced. Estimated TAPSE is 1.4 cm. 3. Left atrium: The atrium is moderately dilated. 4. Right atrium: The atrium is dilated. 5. Aortic valve: A bioprosthetic valve is present. Velocity is within limits of normal for the valve type. There is no evidence of stenosis. The peak systolic velocity is 2.4 m/sec. Electronically signed by Jose Sánchez MD 11/28/2024 20:33 at 2032 PATIENT NAME: OLIVIA LUX [facility] 2024-11-28 12:01:00 [facility] ([facility]) Progress Note REPORT#:[id number] REPORT STATUS: Signed REPORT INITIALIZATION DATE:11/28/24 TIME: 1201 PATIENT: OLIVIA LUX UNIT #: [id number] ROOM/BED: [place] [address] : 49 AGE: 74 SEX: M ATTEND: Sabrina Griffin MD ADM AUTHOR: Evelin Cuevas COLLECTION ADVISOR REPT SERVICE DT/TIME: 11/28/24 1201 * ALL edits or amendments must be made on the electronic/computer document * Balbina Cuevas 11/28/24 1201: Subjective Chief complaint: awake and alert, feeling better Objective General VS/I O Laboratory Tests 11/28/24 0416: [Embedded Image Not Available] Current Medications Sig/Adeel Start time Last Medication Dose Route Stop Time Status Admin Metoprolol Tartrate 25 MG Q12HR 11/28 2100 AC PO 02/26 2059 Pantoprazole 40 MG DAILY 11/28 1830 AC PO 02/26 1829 Amiodarone HCl 200 MG DAILY 11/28 1445 AC PO 02/26 1444 Ascorbic Acid 1,600 MG DAILY 11/28 0900 DC PO 02/26 0859 Ascorbic Acid 1,500 MG DAILY 11/28 0900 AC 11/28 PO 02/26 0859 0902 Aspirin 81 MG DAILY 11/28 0900 AC 11/28 PO 02/26 0859 0903 Ferrous Sulfate 325 MG DAILY 11/28 0900 AC 11/28 PO 02/26 0859 0903 Loratadine 10 MG DAILY 11/28 0900 AC 11/28 PO 02/26 0859 0904 Multivitamins 1 TAB DAILY 11/28 09 AC 11/28 PO 02/26 0859 0903 Polyethylene Glycol 17 GM DAILY 11/28 0900 AC 11/28 PO 02/26 0859 0905 Torsemide 20 MG DAILY 11/28 0900 AC 11/28 PO 02/26 0859 1042 Potassium Chloride 40 MEQ ONCE ONE 11/28 0800 DC 11/28 PO 11/28 0801 0904 Allopurinol 300 MG BID 11/27 2099 AC 11/28 PO 02/25 2059 0905 Apixaban 5 MG BID 11/27 2099 AC 11/28 PO 02/25 2059 0902 Guaifenesin 600 MG Q12HR 11/27 2099 AC 11/28 PO 02/25 2059 1042 Insulin Human Lispro 0 AC HS 11/27 2099 AC SUBQ 02/25 2059 Metoprolol Tartrate 50 MG BID 11/27 2100 DA PO 02/25 2059 Mupirocin 1 APPLIC BID 11/27 2100 AC 11/28 NASAL 12/02 0901 0902 Rosuvastatin Calcium 10 MG BEDTIME 11/27 2100 AC 11/27 PO 02/25 Sacubitril/Valsartan 1 TAB BID 11/27 2100 AC 11/28 PO 02/25 2059 09 Dextrose/Water 125 ML ASDIR PRN 11/27 1700 CKD IV 02/25 1659 Dextrose/Water 250 ML ASDIR PRN 11/27 1700 CKD IV 02/25 1659 Glucagon 1 MG ASDIR PRN 11/27 1700 AC IM 02/25 1659 Ondansetron HCl 4 MG Q6H PRN PRN 11/27 1700 AC IV 02/25 1659 Sodium Chloride 10 ML ASDIR 11/27 1700 AC IV 02/25 1659 Dopamine HCl/Dextrose 250 ML ASDIR 11/27 1515 DC 11/28 IV 02/25 1514 0643 Acetaminophen 325 MG Q6H PRN PRN 11/27 1300 AC PO 02/25 1259 Ibuprofen 200 MG Q4H PRN PRN 11/27 1300 AC PO 02/25 1259 Fentanyl Citrate 100 MCG PACU Q10MIN PRN PRN 11/27 1115 DC IV 11/27 1640 Fentanyl Citrate 50 MCG PACU Q10MIN PRN PRN 11/27 1115 DC IV 11/27 1640 Hydralazine HCl 5 MG PACU Q10MIN PRN PRN 11/27 1115 DC IV 11/27 1640 Hydrocodone Bitart/ 1 TAB PACU ONCE 11/27 1115 DC Acetaminophen PO 11/27 1640 Hydromorphone HCl 1 MG PACU Q10MIN PRN PRN 11/27 1115 DC 11/27 IV 11/27 1640 1625 Hydromorphone HCl 0.5 MG PACU Q5MIN PRN PRN 11/27 1115 DC IV 11/27 1640 Insulin Human Lispro 0 PACU ONCE PRN 11/27 1115 DC SUBQ 11/27 1640 Labetalol HCl 5 MG PACU Q10MIN PRN PRN 11/27 1115 DC IV 11/27 1640 Meperidine HCl 12.5 MG PACU ONCE PRN 11/27 1115 DC IV 11/27 1640 Morphine Sulfate 2 MG PACU Q10MIN PRN PRN 11/27 1115 DC IV 11/27 1640 Ondansetron HCl 4 MG PACU ONCE PRN 11/27 1115 DC IV 11/27 1640 Ropivacaine 150 MG ASDIR PRN 11/27 1115 DC LOCAL 11/27 1640 Tramadol HCl 50 MG PACU ONCE 11/27 1115 DC PO 11/27 1640 Atropine Sulfate 0.5 MG ASDIR PRN 11/27 0915 DC IV 11/28 0901 Sodium Chloride 500 ML ASDIR PRN 11/27 0915 DC IV 11/28 0901 Vancomycin HCl 2,000 MG PREOP ONCALL 11/27 0600 CKD Sodium Chloride 500 ML IV 12/04 0559 Last Documented: Result Date Time Pulse Ox 94 11/28 1420 Pulse 98 11/28 1420 Resp 18 11/28 1420 B/P 89/53 11/28 1415 B/P Mean 66 11/28 1415 O2 Delivery Room air 11/28 1200 Temp 36.8 11/28 1200 O2 Flow Rate 2 11/28 0713 24 hour I O ending at 0700: 11/28 0700 11/27 1900 Intake Total 35.00 Output Total 600 Balance -600 35.00 Intake, IV 35.00 Number Voids 1 Output, Urine 600 Patient 155 kg Weight Weight Bed scale Measurement Method PATIENT WEIGHT: Weight (lb): 341 Weight (oz): 11.46 Weight (kg): 155.000 Physical Exam General appearance: alert, awake, oriented, no acute distress HEENT: mucosal membranes moist Cardiovascular: CV assessment: irregular rhythm Respiratory: no distress Abdomen: soft Musculoskeletal: normal inspection Neuro/ELEMENTARY EDUCATION TEACHER: alert, oriented X 3 Interpretation I independently reviewed the [ ] and my interpretation is [ ] EKG Interpretation: normal sinus rhythm, atrial fibrillation Treatment Prophylaxis Treatment Prophylaxis Oxygen: room air Diagnosis, Assessment Plan Free Text A P: Assessment: 1. Persistent atrial fibrillation, refractory to medical therapy 2. Shortness of breath 3. Palpitations 4. Hx aortic stenosis s/p TAVR 2022 5. Systolic HF, LVEF 35-39% 6. HTN 7. DM 8. Bradycardia, hypotension post PVI abaltion 9. Anemia EKG- NSR 1st degree AV block Plan/Recommendations: - Continuous tele monitoring - Presented for outpatient PVI yesterday, was admitted to CCU post procedure due to hypotension and bradycardia - On tele NSR, PAF - BB on hold due to bradycardia, bradycardia resolved, will resume low dose BB as tolerated, low dose amidoarone - Eliquis AC - Weaned off of dopamine - BP stable - Awake and alert - Ok for transfer out of ICU from EP standpoint - Monitor overnight, if heart rate/rhythm stable overnight consider DC tomorrow - EKG in AM - Will follow Discussed plan with patient and MDM per Dr. Bernard Arias Total time taken for patient care including chart, review, lab review, imaging review, formulating management plan and counseling patient and family 60 minutes. CPT code 26248 Code status: full code Plan discussed with: patient, family Bernard Galicia 11/28/24 1637: Attestations Physician Attestation Agree w/findings plan: Agree with the findings and plan as documented by Evelin Cuevas COLLECTION ADVISOR at 1554 at 8166 RPT #:[id number] END OF REPORT [facility] 2024-11-28 09:40:00 [facility] ([facility]) History Physical - Adult REPORT#:[id number] REPORT STATUS: Signed REPORT INITIALIZATION DATE:11/28/24 TIME: 939 PATIENT: OLIVIA LUX UNIT #: [id number] ROOM/BED: [place] [address] : 49 AGE: 74 SEX: M ATTEND: Sabrina Griffin MD ADM AUTHOR: Sabrina Griffin MD REPT SERVICE DT/TIME: 11/28/24 0940 * ALL edits or amendments must be made on the electronic/computer document * History of Present Illness Free Text HPI Notes Free Text HPI Notes: 74 year old male with multiple co-morbidities admitted s/p afib abaltion, tolerated without complicaitons. amditted post op History Past medical history: Reports: Congestive heart failure, Diabetes mellitus, Hypertension. Past surgical history: Reports: Hernia repair, Tonsillectomy. Family history: Reports: Diabetes. Alcohol use: Denies EtOH use Drug use: Denies recreational drugs Smoking status for patients 13 years old or older: Former Smoker Medication/Allergy-Vaccine Hx Allergies: Coded Allergies: No Known Allergies (01/03/23) Review of Systems All systems rev neg: except as marked Physical Exam VS/I O PATIENT WEIGHT: Weight (lb): 378 Weight (oz): 12.07 Weight (kg): 171.800 General appearance: alert, awake, oriented Head/Eyes: atraumatic, EOMI, normocephalic, PERRLA ENT: normal pharynx Neck: non-tender, no JVD Cardiovascular: regular rate rhythm, normal heart sounds, no murmur Respiratory: clear to auscultation, no distress, no tenderness, aerating well Abdomen/GI: active bowel sounds, soft, non-tender, no guarding Extremities: moves all Musculoskeletal: normal inspection Neuro/ELEMENTARY EDUCATION TEACHER: alert, oriented X 3 Diagnosis, Assessment Plan Problem List/A P: 1. HTN (hypertension) 2. HLD (hyperlipidemia) 3. CAD (coronary artery disease) 4. A-fib Free Text DxA P Notes Free Text DxA P Notes: medicaitons reviewed, continue same resume home meds a fib - per cards/EP follow lab supportive care at 2320 RPT #:[id number] END OF REPORT [facility] 2024-11-28 04:40:00 [id number] [place] [address] PATIENT NAME: OLIVIA LUX ADMIT DATE: 11/27/24 ACCOUNT NO: [id number] ROOM NO: G.3303 AGE: 74 REPORT TYPE: eELECTROCARDIOGRAM REPORT SEX: M ADMITTING PHYSICIAN:Sabrina Griffin MD ATTENDING PHYSICIAN:Sabrina Griffin MD Order: [id number] Test Reason : S/P ABLATION Test Date/Time Stamp: TueNov 28 2024 04:40:23 Blood Pressure : / mmHG Vent. Rate : 075 BPM Atrial Rate : 075 BPM P-R Int : 000 ms QRS Dur : 140 ms QT Int : 414 ms P-R-T Axes : 069 -60 095 degrees QTc Int : 462 ms Sinus rhythm with AV dissociation and Wide QRS rhythm Left axis deviation Left bundle branch block Abnormal ECG When compared with ECG of 27-NOV-2024 16:27, Significant changes have occurred Confirmed by MARYBETH CAPONE MD ([id number]) on 11/28/2024 2:26:25 PM Referred By: Sabrina Griffin Confirmed by:MARYBETH CAPONE MD at 1426 PATIENT NAME: OLIVIA LUX [facility] 2024-11-27 16:27:00 [facility] ([facility]) Critical Care Consult Note REPORT#:[id number] REPORT STATUS: Signed REPORT INITIALIZATION DATE:11/27/24 TIME: 1626 PATIENT: OLIVIA LUX UNIT #: [id number] ROOM/BED: [place] [address] : [birth year] AGE: 74 SEX: M ATTEND: Sabrina Griffin MD ADM AUTHOR: Christine Ray MD R1 REPT SERVICE DT/TIME: 11/27/241626 * ALL edits or amendments must be made on the electronic/computer document * Holli Ray 11/27/241626: History of Present Illness HPI Chief complaint: Bradycardia s/p ablation HPI: 74 year old male with history of persistent atrial fibrillation, severe aortic stenosis (s/p TAVR 02/2023), systolic HF (EF 35-39% 02/2023), hypertension and type 2 diabetes mellitus is admitted to the CCU for closer monitoring of bradycardia after ablation of atrial fibrillation. Patient arrived to the CCU on dopamine gtt. His HR is in the 40s-50s and NSR. History - Adult longitudinal Past medical history: Reports: Congestive heart failure, Diabetes mellitus, Hypertension. Past surgical history: Reports: Hernia repair, Tonsillectomy. Family history: Reports: Diabetes. Alcohol use: Denies EtOH use Drug use: Denies recreational drugs Smoking status for patients 13 years old or older: Former Smoker Allergies: Coded Allergies: No Known Allergies (01/03/23) Review of Systems ROS Additional notes: All systems reviewed and negative Objective Physical Exam VS/I O: Current Medications Sig/Adeel Start time Last Medication Dose Route Stop Time Status Admin Pantoprazole 40 MG DAILY 0600 11/28 1830 AC PO 02/26 1829 Ascorbic Acid 1,600 MG DAILY 11/28 0900 DC PO 02/26 0859 Ascorbic Acid 1,500 MG DAILY 11/28 0900 AC PO 02/26 0859 Aspirin 81 MG DAILY 11/28 09 AC PO 02/26 0859 Ferrous Sulfate 325 MG DAILY 11/28 09 AC PO 02/26 0859 Loratadine 10 MG DAILY 11/28 0900 AC PO 02/26 0859 Multivitamins 1 TAB DAILY 11/28 0900 AC PO 02/26 0859 Polyethylene Glycol 17 GM DAILY 11/28 09 AC PO 02/26 0859 Torsemide 20 MG DAILY 11/28 0900 AC PO 02/26 0859 Allopurinol 300 MG BID 11/27 2100 AC PO 02/25 205 Apixaban 5 MG BID 11/27 2100 AC PO 02/25 205 Guaifenesin 600 MG Q12HR 11/27 2100 AC PO 02/25 205 Insulin Human Lispro 0 AC HS 11/27 2100 AC SUBQ 02/25 205 Metoprolol Tartrate 50 MG BID 11/27 2100 AC PO 02/25 205 Mupirocin 1 APPLIC BID 11/27 2100 AC NASAL 12/02 0901 Rosuvastatin Calcium 10 MG BEDTIME 11/27 2100 AC PO 02/25 205 Sacubitril/Valsartan 1 TAB BID 11/27 2100 AC PO 02/25 2059 Dextrose/Water 125 ML ASDIR PRN 11/27 1700 CKD IV 02/25 1659 Dextrose/Water 250 ML ASDIR PRN 11/27 1700 CKD IV 02/25 1659 Glucagon 1 MG ASDIR PRN 11/27 1700 AC IM 02/25 1659 Ondansetron HCl 4 MG Q6H PRN PRN 11/27 1700 AC IV 02/25 1659 Sodium Chloride 10 ML ASDIR 11/27 1700 AC IV 02/25 1659 Dopamine HCl/Dextrose 250 ML .STK-MED ONE 11/27 1535 DC IV Dopamine HCl/Dextrose 250 ML ASDIR 11/27 1515 AC 11/27 IV 02/25 1514 1551 Acetaminophen 325 MG Q6H PRN PRN 11/27 1300 AC PO 02/25 1259 Ibuprofen 200 MG Q4H PRN PRN 11/27 1300 AC PO 02/25 1259 Fentanyl Citrate 100 MCG PACU Q10MIN PRN PRN 11/27 1115 DC IV 11/27 1640 Fentanyl Citrate 50 MCG PACU Q10MIN PRN PRN 11/27 1115 DC IV 11/27 1640 Hydralazine HCl 5 MG PACU Q10MIN PRN PRN 11/27 1115 DC IV 11/27 1640 Hydrocodone Bitart/ 1 TAB PACU ONCE 11/27 1115 DC Acetaminophen PO 11/27 1640 Hydromorphone HCl 1 MG PACU Q10MIN PRN PRN 11/27 1115 DC 11/27 IV 11/27 1640 1625 Hydromorphone HCl 0.5 MG PACU Q5MIN PRN PRN 11/27 1115 DC IV 11/27 1640 Insulin Human Lispro 0 PACU ONCE PRN 11/27 1115 DC SUBQ 11/27 1640 Labetalol HCl 5 MG PACU Q10MIN PRN PRN 11/27 1115 DC IV 11/27 1640 Meperidine HCl 12.5 MG PACU ONCE PRN 11/27 1115 DC IV 11/27 1640 Morphine Sulfate 2 MG PACU Q10MIN PRN PRN 11/27 1115 DC IV 11/27 1640 Ondansetron HCl 4 MG PACU ONCE PRN 11/27 1115 DC IV 11/27 1640 Ropivacaine 150 MG ASDIR PRN 11/27 1115 DC LOCAL 11/27 1640 Tramadol HCl 50 MG PACU ONCE 11/27 1115 DC PO 11/27 1640 Protamine Sulfate 0 .STK-MED ONE 11/27 1105 DC IV Heparin Sodium 0 .STK-MED ONE 11/27 1023 DC .ROUTE Cefazolin Sodium 0 .STK-MED ONE 11/27 1015 DC .ROUTE Furosemide 0 .STK-MED ONE 11/27 0956 DC .ROUTE Atropine Sulfate 0 .STK-MED ONE 11/27 0929 DC 11/27 IV 0952 Cefazolin Sodium 0 .STK-MED ONE 11/27 0929 DC 11/27 .ROUTE 0952 Heparin Sodium 0 .STK-MED ONE 11/27 0929 DC 11/27 .ROUTE 0952 Heparin Sodium/ 2,000 ML .STK-MED ONE 11/27 0929 DC 11/27 Sodium Chloride IV 0952 Bupivacaine HCl 0 .STK-MED ONE 11/27 0928 DC 11/27 .ROUTE 0952 Atropine Sulfate 0.5 MG ASDIR PRN 11/27 0915 AC IV 11/28 0901 Sodium Chloride 500 ML ASDIR PRN 11/27 0915 AC IV 11/28 0901 Acetaminophen 0 .STK-MED ONE 11/27 0848 DC .ROUTE Gabapentin 0 .STK-MED ONE 11/27 0848 DC .ROUTE Dexamethasone Sodium 0 .STK-MED ONE 11/27 08 DC Phosphate .ROUTE Etomidate 0 .STK-MED ONE 11/27 08 DC IV Fentanyl Citrate 0 .STK-MED ONE 11/27 08 DC .ROUTE Ondansetron HCl 0 .STK-MED ONE 11/27 824 DC .ROUTE Propofol 20 ML .STK-MED ONE 11/27 08 DC IV Sevoflurane 0 .STK-MED ONE 11/27 08 DC INH Heparin Sodium 0 .STK-MED ONE 11/27 08 DC .ROUTE Lidocaine HCl 0 .STK-MED ONE 11/28 823 DC .ROUTE Norepinephrine 0 .STK-MED ONE 11/28 823 DC Bitartrate IV Sodium Chloride 250 ML .STK-MED ONE 11/27 08 DC IV Vancomycin HCl 2,000 MG PREOP ONCALL 11/27 0600 CKD Sodium Chloride 500 ML IV 12/04 0559 Acetaminophen 1,000 MG PREOP ONCALL 11/23 1100 DC 11/27 PO 12/23 2359 0851 Gabapentin 200 MG PREOP ONCALL 11/23 1100 DC 11/27 PO 12/23 2359 0851 Lactated Ringer's 1,000 ML PREOP ONCALL 11/23 1100 DC IV 12/23 2359 Lidocaine HCl 2 ML PREOP ONCALL 11/23 1100 DC LOCAL 12/23 2359 Lidocaine HCl 2 ML PREOP ONCALL 11/23 1100 DC LOCAL 12/23 2359 Sodium Chloride 500 ML PREOP ONCALL 11/23 1100 DC IV 12/23 2359 Sodium Chloride 500 ML PREOP ONCALL 11/23 1100 DC IV 12/23 2359 Sodium Chloride 1,000 ML PREOP ONCALL 11/23 1100 DC IV 12/23 2359 Sodium Chloride 5 ML ASDIR PRN 11/23 1100 DC IV 02/21 1059 Sodium Chloride 10 ML ASDIR PRN 11/23 1100 DC IV 02/21 1059 Sodium Chloride 100 ML ASDIR PRN 11/23 1100 DC IV 02/21 1059 Last Documented: Result Date Time Pulse Ox 92 11/27 1646 B/P 102/48 11/27 1646 B/P Mean 69 11/27 1646 Pulse 41 05/27 1646 Temp 37.1 11/27 1634 O2 Delivery Nasal cannula 11/27 1624 O2 Flow Rate 2 11/27 1624 Resp 15 11/27 1619 Patient Weight and BMI Weight (kg): 155.000 BMI: 43.9 General appearance: alert, awake, oriented Head/Eyes: atraumatic, normal conjunctiva/sclera ENT: moist mucosal membranes Neck: non-tender, no masses or swelling Cardiovascular: bradycardia, decreased cap refill, normal heart sounds Respiratory: aerating well, clear to auscultation, symmetric expansion, no distress Abdomen: soft, non-tender, normal bowel sounds Extremities: moves all, no calf tenderness, no edema Musculoskeletal: normal inspection Neuro/ELEMENTARY EDUCATION TEACHER: alert, oriented X 3, normal speech Skin: dry, intact, normal temperature, no rash Psychiatry: normal mood, no hallucinations Diagnosis, Assessment Plan Free text DxA P: 74 year old male with history of persistent atrial fibrillation, severe aortic stenosis (s/p TAVR 02/2023), systolic HF (EF 35-39% 02/2023), hypertension and type 2 diabetes mellitus is admitted to the CCU for closer monitoring of bradycardia after ablation of atrial fibrillation. Patient arrived to the CCU on dopamine gtt. His HR is in the 40s-50s and NSR. Problem List * Bradycardia after ablation of atrial fibrillation * Atrial fibrillation s/p ablation * Type 2 diabetes mellitus * Systolic heart failure * History of hypertension Assessment Plan Neurology No issues Cardiology 1. Bradycardia after ablation of atrial fibrillation - Continue dopamine gtt. - Wean as tolerated - EP following 2. Atrial fibrillation s/p ablation - [id number] VASc: 5 points - Hold metoprolol tartrate 50mg BID due to bradycardia - Continue eliquis 5mg BID 3. Systolic heart failure - Continue entresto 97/103mg BID Pulmonology No issues Gastrointestinal No issues Renal No issues Infectious disease No issues Hematology 1. Chronic anemia - Continue ferrous sulphate 325mg daily. Endocrinology 1. Type 2 diabetes mellitus - Continue low dose sliding scale and hypoglycemia protocol - Hold home oral antihyperglycemics Musculoskeletal 1. History of gout - Continue allopurinol 300mg BID. Diet: cardiac DVT prophylaxis: eliquis GI prophylaxis: not needed Bowel regimen: miralax Code status: full code Disposition: continue monitoring in the CCU Izaiah Li 11/28/24 2000: Attestations Physician Attestation Agree w/findings plan: Agree with the findings and plan as documented by resident; * my personal evaluation is Persistent A-fib Severe aortic stenosis status post TAVR History of systolic heart failure Type 2 diabetes Symptomatic bradycardia Status post ablation for A-fib -Continue dopamine -Avoid AV anai blocking agent -Continuous telemetry -Monitor for signs of hypoperfusion and endorgan dysfunction -EKG in the morning -Optimize potassium greater than 4 and magnesium greater than 2 -EP and cardiology follow Critical care time 40 minutes spent with patient excluding bedside procedures and teaching at 1809 at 2000 RPT #:[id number] END OF REPORT [facility] 2024-11-27 16:27:00 [id number] [place] [id number] PATIENT NAME: OLIVIA LXU ADMIT DATE: 11/27/24 ACCOUNT NO: [id number] ROOM NO: G.3303 AGE: 74 REPORT TYPE: eELECTROCARDIOGRAM REPORT SEX: M ADMITTING PHYSICIAN:Sabrina Griffin MD ATTENDING PHYSICIAN:Sabrina Griffin MD Order: [id number] Test Reason : POST AB Test Date/Time Stamp: TueNov 27 2024 16:27:34 Blood Pressure : / mmHG Vent. Rate : 042 BPM Atrial Rate : 000 BPM P-R Int : 000 ms QRS Dur : 138 ms QT Int : 604 ms P-R-T Axes : 000 -41 003 degrees QTc Int : 504 ms Sinus bradycardia Left axis deviation Left bundle branch block Abnormal ECG When compared with ECG of 27-NOV-2024 11:21, No significant change was found Confirmed by MARYBETH CAPONE MD ([id number]) on 11/27/2024 6:45:29 PM Referred By: Sabrina Griffin Confirmed by:MARYBETH CAPONE MD at 8114 PATIENT NAME: OLIVIA LUX [facility] [facility] 2024-11-27 16:00:00 [facility] ([facility]) DT Operative Note REPORT#:[id number] REPORT STATUS: Signed REPORT INITIALIZATION DATE:11/27/24 TIME: 1600 PATIENT: OLIVIA LUX UNIT #: [id number] ROOM/BED: [place] [address] : 49 AGE: 74 SEX: M ATTEND: Sabrina Griffin MD ADM AUTHOR: Bernard Galicia MD REPT SERVICE DT/TIME: 11/27/24 1600 * ALL edits or amendments must be made on the electronic/computer document * Operative Report Operative Note Note: OPERATION DATE: 11/27/2024 PREOPERATIVE DIAGNOSES: 1. Persistent atrial fibrillation, refractory to medical therapy. 2. Shortness of breath. 3. Palpitations. POSTOPERATIVE DIAGNOSES: 1. Persistent atrial fibrillation, refractory to medical therapy. 2. Shortness of breath. 3. Palpitations. PROCEDURES PERFORMED: 1. Comprehensive electrophysiology study with induction. 2. Ablation of atrial fibrillation. 3. Additional linear ablation in the left atrium for atrial fibrillation. SURGEON: Bernard Peters MD BILINGUAL SALES REPRESENTATIVE: ESTIMATED BLOOD LOSS: 20 mL. COMPLICATIONS: None. ANESTHESIA: General. DESCRIPTION OF PROCEDURE: After informed consent was obtained, the patient was brought to the electrophysiology laboratory in a fasting sedated state. The area over his groin was prepped and draped in the usual sterile fashion. General anesthesia was started. Vascular access was obtained x 2 in the right common femoral vein under ultrasound. Heparin was given to maintain ACT greater than 350. There was no pericardial effusion at baseline, no thrombus in the left atrial appendage. We then performed transeptal access x1. A 3D map of the left atrium was created using [employer]. The patient was in atrial fibrillation We then performed pulse field ablation lesions using the basket configuration x2 , then rotated about 30 degrees, delivered two more lesions, then the flower configuration x2, rotated about 30 degrees and delivered two more lesions on each vein until all four veins were isolated. We then performed additional linear ablation with the same pulse field ablation catheter in the flower configuration x2 lesions per each location at the posterior wall until successful isolation, also PFA was performed at the ostium of the SVC to successfully isoolate the SVC, we then cardioverted to sinus rhythm with single external shock of 360J There was demonstration of isolation of the posterior wall and the four pulmonary veins, patient remained in sinus rhythm. The patient tolerated the procedure well. Procedure was complete. There was no pericardial effusion. We gave protamine. We removed the sheaths. We used Vascade. Total lesions delivered 72 IMPRESSION: 1. Atrial fibrillation on presentation. 2. Successful isolation of the four pulmonary veins, SVC and posterior wall using pulse field ablation. 3. Cardioversion at the end of the procedure 4. No complications. PLAN: 1. Routine postop monitoring on telemetry. 2. Continue oral anticoagulation and current medicines. 3. Will follow in 1-2 weeks at 1602 RPT #:[id number] END OF REPORT [facility] 2024-11-27 11:21:00 [id number] [place] [address] PATIENT NAME: OLIVIA LUX ADMIT DATE: 11/27/24 ACCOUNT NO: [id number] ROOM NO: AGE: 74 REPORT TYPE: eELECTROCARDIOGRAM REPORT SEX: M ADMITTING PHYSICIAN: ATTENDING PHYSICIAN:Bernard Galicia MD Order: [id number] Test Reason : PVI Test Date/Time Stamp: TueNov 27 2024 11:21:20 Blood Pressure : / mmHG Vent. Rate : 045 BPM Atrial Rate : 053 BPM P-R Int : 000 ms QRS Dur : 136 ms QT Int : 510 ms P-R-T Axes : 000 -31 -57 degrees QTc Int : 441 ms Sinus bradycardia Left axis deviation Left bundle branch block Abnormal ECG When compared with ECG of 23-NOV-2024 11:42, Significant changes have occurred Confirmed by MARYBETH CAPONE MD ([id number]) on 11/27/2024 12:23:06 PM Referred By: Bernard Peters Confirmed by:MARYBETH CAPONE MD at 1223 PATIENT NAME: OLIVIA LUX [facility] 2024-11-23 11:42:00 [id number] [place] [address]558 PATIENT NAME: OLIVIA LUX ADMIT DATE: ACCOUNT NO: [id number] ROOM NO: AGE: 74 REPORT TYPE: eELECTROCARDIOGRAM REPORT SEX: M ADMITTING PHYSICIAN: ATTENDING PHYSICIAN:Bernard Galicia MD Order: [id number] Test Reason : PREOP Test Date/Time Stamp: TueNov 23 2024 11:42:28 Blood Pressure : / mmHG Vent. Rate : 076 BPM Atrial Rate : 084 BPM P-R Int : 000 ms QRS Dur : 138 ms QT Int : 384 ms P-R-T Axes : 000 -41 044 degrees QTc Int : 432 ms Atrial fibrillation Left axis deviation Left bundle branch block Abnormal ECG When compared with ECG of 23-FEB-2023 07:26, Significant changes have occurred Confirmed by Jose Sánchez ([id number]) on 11/23/2024 3:18:12 PM Referred By: Self Referred Confirmed by:Jose Sánchez at 1518 PATIENT NAME: OLIVIA LUX [facility] 2023-02-23 18:16:00 [id number] [place] [address] PATIENT NAME: OLIVIA LUX ADMIT DATE: 02/22/23 ACCOUNT NO: [id number] ROOM NO: [id number] AGE: 72 REPORT TYPE: eECHOCARDIOGRAM REPORT SEX: M ADMITTING PHYSICIAN:Jerome [place] MD ATTENDING PHYSICIAN:Marcelina Burnett MD *[place] [address] Limited Transthoracic Echocardiogram Patient: Olivia Lux Study Date: 02/22/2023 BP: 128 / 69 Location: [facility] URN: [id number] : 1950 Age: 72 Height: 74 in / 188 cm Gender: M Weight: 328.9 lb / 149.5 kg BMI/BSA: 42.3 kg/m 2 / 2.86 m 2 *Ordering Physician: * Jerome Nicholas *Interpreting Physician: * Marcelina Burnett MD *Steam Shovel Operating Engineer: * Laury Simpson [facility] Indications: TAVR. Study data: Transthoracic echocardiogram, limited study. Procedure: Transthoracic echocardiography was performed. Images were obtained using a [employer] cardiac ultrasound machine. Limited 2D and limited spectral Doppler. Location: Catheterization laboratory. Findings Left ventricle: Systolic function is reduced. Left ventricular diastolic function parameters are indeterminate. Aortic valve: Pre TAVR: The LVOT diameter is 1.9 cm. The peak gradient is 57.5 mmHg. The mean gradient is 35.5 mmHg. The LVOT VTI is 17.3 cm. The AV VTI is 91.6 cm. The aortic valve area is 0.6 cm 2. The peak jet velocity is 3.8 m/sec. There is mild aortic regurgitation. There is moderate to severe aortic stenosis. PATIENT NAME: OLIVIA LUX Post TAVR: There is a Saavedra AMALIA 3, 29 mm transcatheter valve that is well seated in the aortic valve position. The LVOT diameter is 2 cm. The peak aortic gradient is 11.1 mmHg. The mean aortic gradient is 6.9 mmHg. The LVOT VTI is 17.5 cm. The AV VTI is 36 cm. The aortic valve area is 1.5 cm 2. The peak jet velocity is 1.7 m/sec. There is no perivalular leak. Mitral valve: There is no regurgitation. Tricuspid valve: There is no regurgitation. Pericardium: There is no pericardial effusion. Measurements LVOT Value 01/31/2023 Diam, S 2.02 cm 2.34 Area 3.2 cm 2 4.3 Peak adina, S 0.79 m/sec 0.69 Mean adina, S 0.56 m/sec 0.49 VTI, S 17.6 cm 15.8 Peak grad, S 2 mm Hg 2 Mean grad, S 1 mm Hg 1 SV 53 ml 68 Qs 10.87 L/min 5.13 Qs/bsa 3.8 L/(min-m 2) 1.9 SV/bsa 19 ml/m 2 25 Aortic valve Value 01/31/2023 Peak v, S 1.81 m/sec 4.16 Mean v, S 1.38 m/sec 3.16 VTI, S 36.0 cm 95.5 Mean grad, S 8.0 mm Hg 42.4 Peak grad, S 13.1 mm Hg 69.3 LVOT/AV, VTI ratio 0.49 0.17 [place], VTI 0.58 cm 2 0.85 LVOT/AV, Vpeak 0.43 0.16 ratio [place], Vmax 0.62 cm 2 0.73 Pulmonic valve Value 01/31/2023 WY v, ED 2.05 m/sec 0.76 WY grad, ED 17 mm Hg Conclusions Summary: Left ventricle: Systolic function is reduced. Left ventricular diastolic function parameters are indeterminate. Prepared and electronically signed by Marcelina Burnett MD 02/23/2023 18:16 PATIENT NAME: OLIVIA LUX at 1816 PATIENT NAME: OLIVIA LUX [facility] 2023-02-23 17:38:00 [id number] [place] [address] PATIENT NAME: OLIVIA LUX ADMIT DATE: 02/22/23 ACCOUNT NO: [id number] ROOM NO: [facility] AGE: 72 REPORT TYPE: eECHOCARDIOGRAM REPORT SEX: M ADMITTING PHYSICIAN:Jerome [place] MD ATTENDING PHYSICIAN:Marcelina Burnett MD *[place] [address] Transthoracic Echocardiogram Patient: Olivia Lux Study Date: 02/23/2023 BP: 130 / 61 Location: [facility] URN: [id number] : 1950 Age: 72 Height: 74 in / 188 cm Gender: M Weight: 328.3 lb / 149.2 kg BMI/BSA: 42.2 kg/m 2 / 2.69 m 2 *Ordering Physician: * Abbie Rey NP *Interpreting Physician: * Marcelina Burnett MD *Steam Shovel Operating Engineer: * Graciela Gonzales Indications: POST TAVR. Study data: Transthoracic echocardiogram. Procedure: Transthoracic echocardiography was performed. Image quality was adequate. Complete 2D, complete spectral Doppler, and color Doppler. Location: Bedside. Patient status: Inpatient. Patient room number: 3348. Study status: NATE. Findings Left ventricle: The cavity size is dilated. Wall thickness is mildly increased. Systolic function is moderately to severely reduced. The estimated ejection fraction is 35-39%. Regional wall motion abnormalities: Severe hypokinesis of the mid anteroseptal, apical septal, and apical myocardium. There is fusion of early and atrial contributions to ventricular filling. The study is not technically sufficient to allow evaluation of LV diastolic function. PATIENT NAME: OLIVIA LUX Right ventricle: The cavity size is normal. Systolic function is mildly reduced. Estimated TAPSE is 1.5 cm. Left atrium: The atrium is mildly dilated. Right atrium: The atrium is dilated. Aorta: The aorta is mildly dilated. Aortic root: The aortic root is normal in size. Aortic valve: There is a bioprosthetic valve. Post TAVR: There is a Saavedra AMALIA 3, 29 mm transcatheter valve that is well seated in the aortic valve position. The LVOT diameter is 2.1 cm. The peak aortic gradient is 30.7 mmHg. The mean aortic gradient is 16.9 mmHg. The LVOT VTI is 38.6 cm. The AV VTI is 59.3 cm. The aortic valve area is 2.3 cm 2. The peak jet velocity is 2.8 m/sec. There is a trace perivalvular leak. There is no evidence of stenosis. There is no regurgitation. Mitral valve: The valve is structurally normal. There is no evidence of stenosis. There is mild regurgitation. Tricuspid valve: The valve is structurally normal. There is mild regurgitation. Pulmonic valve: The valve is structurally normal. There is no regurgitation. Pericardium: A prominent pericardial fat pad is present. There is no pericardial effusion. Pulmonary arteries: Main pulmonary artery: The artery is of normal size. Systemic veins: Inferior vena cava: The vessel is normal in size. Measurements Left ventricle Value 01/31/2023 Ref DONYA, LAX 6.4 cm 6.6 4.2 - 5.8 ESD, LAX 5.2 cm 6.2 2.5 - 4.0 ESD/bsa, 1.9 cm/m 2 2.3 1.3 LAX - 2.1 FS, LAX 18 % 6 25 - 43 ESD/bsa 2.8 cm/m 2 3.0 ---- major ax, A4C DONYA/bsa 2.8 cm/m 2 3.0 ---- minor ax, A4C DONYA major 9.0 cm 9.3 ---- ax, A2C DONYA/bsa 3.4 cm/m 2 3.4 ---- major ax, A2C PW, ED 1.3 cm 1.5 0.6 PATIENT NAME: OLIVIA LUX - 1.0 IVS/PW, ED 0.95 0.96 ---- EF 37 % 14 52 - 72 E', lat 12.7 cm/sec >=10 nayla, TDI .0 E/e', lat 12 ---- nayla, TDI E', med 5.9 cm/sec >=7. nayla, TDI 0 E/e', med 26 ---- nayla, TDI E', avg, 9.3 cm/sec ---- TDI E/e', avg, 16 <=14 TDI LVOT Value 01/31/2023 Ref Diam, S 2.12 cm 2.34 ---- Area 3.5 cm 2 4.3 ---- Peak adina, S 1.81 m/sec 0.69 ---- Mean adina, S 1.19 m/sec 0.49 ---- VTI, S 38.6 cm 15.8 ---- Peak grad, 13 mm Hg 2 ---- S Mean grad, 7 mm Hg 1 ---- S SV 136 ml 68 ---- Qs 11.11 L/min 5.13 ---- Qs/bsa 4.1 L/(min-m 2) 1.9 ---- SV/bsa 51 ml/m 2 25 ---- Ventricular septum Value 01/31/2023 Ref IVS, ED 1.2 cm 1.5 0.6 - 1.0 Right ventricle Value 01/31/2023 Ref DONYA, LAX 3.5 cm 3.6 ---- Pressure, S 38 mm Hg ---- RVOT Value 01/31/2023 Ref Peak v, S 1.08 m/sec 0.91 ---- Peak grad, 5 mm Hg 3 ---- S Left atrium Value 01/31/2023 Ref Vol/bsa, 28 ml/m 2 34 12 - ES, 1-p A4C 37 Vol, ES, 95 ml 91 ---- 2-p Vol/bsa, 35 ml/m 2 34 16 - ES, 2-p 34 PATIENT NAME: OLIVIA LUX Vol/bsa, 28 ml/m 2 36 16 - ES, A/L 34 AP dim, ES 5.4 cm 5.7 3.0 MM - 4.0 LA/Ao root 1.5 1.79 ---- ratio, MM Aortic valve Value 01/31/2023 Ref Leaflet 1.59 cm 0.82 ---- sep, MM Peak v, S 2.77 m/sec 4.16 ---- Mean v, S 1.9 m/sec 3.16 ---- VTI, S 59.3 cm 95.5 ---- Mean grad, 16.9 mm Hg 42.4 ---- S Peak grad, 30.7 mm Hg 69.3 ---- S LVOT/AV, 0.65 0.17 ---- VTI ratio [place], VTI 2.29 cm 2 0.85 ---- LVOT/AV, 0.65 0.16 ---- Vpeak ratio [place], Vmax 2.30 cm 2 0.73 ---- Mitral valve Value 01/31/2023 Ref E-septal 1.6 cm ---- separation E-F slope 0.07 m/sec ---- Peak E 1.5 m/sec ---- PHT 52 ms ---- Peak grad, 9.1 mm Hg ---- D MVA, PHT 4.2 cm 2 ---- Pulmonic valve Value 01/31/2023 Ref WY v, ED 0.82 m/sec 0.76 ---- Tricuspid valve Value 01/31/2023 Ref TR peak v 2.65 m/sec 2.34 <=2. 8 Peak RV-RA 28 mm Hg 22 ---- grad, S Aortic root Value 01/31/2023 Ref Root diam, 3.57 cm 3.16 ---- ED MM Pulmonary artery Value 01/31/2023 Ref Pressure, S 30.3 mm Hg ---- Systemic veins Value 01/31/2023 Ref Estimated 10 mm Hg ---- CVP PATIENT NAME: OLIVIA LUX Conclusions Summary: 1. Left ventricle: The cavity size is dilated. Wall thickness is mildly increased. Systolic function is moderately to severely reduced. The estimated ejection fraction is 35-39%. There is fusion of early and atrial contributions to ventricular filling. The study is not technically sufficient to allow evaluation of LV diastolic function. 2. Regional wall motion abnormality: Severe hypokinesis of the mid anteroseptal, apical septal, and apical myocardium. 3. Right ventricle: Systolic function is mildly reduced. 4. Left atrium: The atrium is mildly dilated. 5. Right atrium: The atrium is dilated. 6. Aortic valve: There is a bioprosthetic valve. There is a Saavedra AMALIA 3, 29 mm transcatheter valve that is well seated in the aortic valve position. There is a trace perivalvular leak. The peak systolic velocity is 2.77 m/sec. The mean systolic gradient is 16.9 mm Hg. The valve area by the velocity-time integral method is 2.29 cm 2. 7. Pericardium, extracardiac: There is no pericardial effusion. Prepared and electronically signed by Marcelina Burnett MD 02/23/2023 17:37 at 1738 PATIENT NAME: OLIVIA LUX [facility] 2023-02-23 11:20:00 [facility] ([facility]) Discharge Summary REPORT#:[id number] REPORT STATUS: Signed DATE:02/23/23 TIME: 1120 PATIENT: OLIVIA LUX UNIT #: [id number] [place]: [facility] : 49 AGE: 72 SEX: M ATTEND: Marcelina Burnett MD ADM AUTHOR: Miles Bowen NP * ALL edits or amendments must be made on the electronic/computer document * PCP PCP Discharge to: home General Information Free Text A P: 1. Severe Symptomatic Aortic Stenosis Discharge date: 02/23/23 Discharge diagnosis: Severe Symptomatic Aortic Stenosis Hospital course: This is a 72 year old male with a past medical history of severe symptomatic aortic stenosis, CHF, hypertension, obesity, chronic atrial fibrillation that presented for elective transcatheter aortic valve replacement. The patient underwent successful implant of a 29mm Saavedra Amalia S3 valve via transfemoral access. The patient was admitted, monitored overnight, and labs/vital signs were reviewed. Echocardiogram was reviewed and patient appropriate for discharge. Med Rec PCP PCP: PCP: Jerome Nicholas MD Med Rec Discharge meds: Continue taking these medications: ROSUVASTATIN (CRESTOR) 10 MG TAB 10 MILLIGRAM ORAL BEDTIME. Sacubitril/Valsartan (Entresto 97 MG-103 MG Tablet) 97 MG-103 MG TAB 1 EACH ORAL TWICE DAILY. METOPROLOL TARTRATE (LOPRESSOR) 50 MG TAB 50 MILLIGRAM ORAL TWICE DAILY. TORSEMIDE (DEMADEX) 20 MG TAB 20 MILLIGRAM ORAL DAILY. GABAPENTIN (NEURONTIN) 600 MG TAB 600 MILLIGRAM ORAL THREE TIMES A DAY. metFORMIN XR (GLUCOPHAGE XR) 750 MG TAB.SR.24H 750 MILLIGRAM ORAL TWICE DAILY. Instructions: HOLD FOR 48 HRS ONCE DAILY WITH EVENING MEAL. EMPAGLIFLOZIN (JARDIANCE) 25 MG TAB OMEPRAZOLE ER (OMEPRAZOLE ER) 20 MG CAP.DR 20 MILLIGRAM ORAL DAILY. FAMOTIDINE (PEPCID AC) 10 MG TAB 10 MILLIGRAM ORAL DAILY. POTASSIUM GLUCONATE (POTASSIUM) (Unknown Strength) TAB Unknown Dose ORAL DAILY. MAGNESIUM OXIDE (MAG-OXIDE) (Unknown Strength) TAB Unknown Dose ORAL DAILY. ALLOPURINOL (ZYLOPRIM) 300 MG TAB 300 MILLIGRAM ORAL TWICE DAILY. TIRZEPATIDE (MOUNJARO PEN (2mL)) 2.5 MG/0.5 ML PEN.INJCTR 2.5 MILLIGRAM SUBCUTANEOUS EVERY 7 DAYS. guaiFENesin ER (MUCINEX) 600 MG TAB.SA 600 MILLIGRAM ORAL EVERY 12 HOURS. LORATADINE (CLARITIN) 10 MG TAB 10 MILLIGRAM ORAL DAILY. ACETAMINOPHEN (TYLENOL) 325 MG TAB 325 MILLIGRAM ORAL EVERY 6 HOURS NEEDED. as needed for PAIN MELATONIN (MELATONIN) 5 MG TAB.SL 1 TABLET SUBLINGUAL BEDTIME. MULTIVITAMIN (MULTIPLE VITAMIN) 1 TAB TAB 1 TABLET ORAL DAILY. Start taking the following new medications: ASPIRIN EC (ECOTRIN) 81 MG TAB.EC 81 MILLIGRAM ORAL DAILY. Qty = 30 Refills = 3 The following medications have been changed: Old: APIXABAN (ELIQUIS) 5 MILLIGRAM ORAL TWICE DAILY. New: APIXABAN (ELIQUIS) 5 MG TAB 5 MILLIGRAM ORAL TWICE DAILY. Instructions: resume tomorrow monring Objective VS/I O Last Documented: Result Date Time Pulse Ox 98 02/23 0745 B/P 148/77 02/23 0745 B/P Mean 0.0 02/23 0745 Temp 36.6 02/23 0745 Pulse 88 02/23 0745 Resp 21 02/23 0745 O2 Delivery Simple mask 02/22 1154 O2 Flow Rate 5 02/22 1154 PATIENT WEIGHT: Weight (lb): 329 Weight (oz): 9.46 Weight (kg): 149.500 General appearance: alert, awake, oriented, no acute distress Head/Eyes: atraumatic, clear cornea, EOMI Neck: full range of motion, non-tender Cardiovascular: normal capillary refill, normal heart sounds, BP/pulses equal bilat., no ectopy, irregularly irregular Respiratory: clear to auscultation, no distress, no tenderness, aerating well GI: soft, non-tender Genitourinary: not indicated Extremities: moves all, no edema-all extremities Musculoskeletal: full range of motion, normal inspection Neuro/ELEMENTARY EDUCATION TEACHER: alert, oriented X 3 Skin: dry, intact Discharge Instructions PCP PCP: PCP: Jerome Nicholas MD )( Discharge to: Home/Self Care Discharge Instructions Additional Discharge Routines: Attending Follow-Up )( Diet: Resume Home Diet/Feeds Follow-up Appointments Attending Physician: Attending Physician: Jerome Nicholas MD Attending physician follow up timeframe: In 1-2 weeks at 1126 at 1126 RPT #:[id number] END OF REPORT [facility] 2023-02-23 10:17:00 [facility] ([facility]) Structural Heart Post Progress REPORT#:[id number] REPORT STATUS: Signed DATE:02/23/23 TIME: 1017 PATIENT: OLIVIA LUX UNIT #: [id number] ROOM/BED: [place] [address] : 49 AGE: 72 SEX: M ATTEND: Marcelina Burnett MD ADM AUTHOR: Miles Bowen NP * ALL edits or amendments must be made on the electronic/computer document * History of Present Illness HPI TAVR procedure: Valve type: Saavedra Amalia Valve size: 29 Approach: transfemoral HPI: This is a 72 year old male with a past medical history of severe symptomatic aortic stenosis, CHF, hypertension, obesity, chronic atrial fibrillation that presented for elective transcatheter aortic valve replacement. The patient underwent successful implant of a 29mm Saavedra Amalia S3 valve via transfemoral access. The patient was admitted, monitored overnight, and labs/vital signs were reviewed. Echocardiogram was reviewed and patient appropriate for discharge. History Past medical history: Reports: Congestive heart failure, Diabetes mellitus, Hypertension. Past surgical history: Reports: Hernia repair, Tonsillectomy. Family history: Reports: Diabetes. Alcohol use: Denies EtOH use Drug use: Denies recreational drugs Smoking status for patients 13 years old or older: Current some day smoker Medication/Allergy-Vaccine Hx Allergies: Coded Allergies: No Known Allergies (01/03/23) Review of systems ROS Cardiovascular: Denies: chest pain, HOLT (dyspnea on exertion), edema, orthopnea, palpitations, parox nocturnal dyspnea, other. Objective Vital Signs Nursing documented vitals: Last Documented: Result Date Time Pulse Ox 98 02/23 0745 B/P 148/77 02/23 0745 B/P Mean 0.0 02/23 0745 Temp 36.6 02/23 0745 Pulse 88 02/23 0745 Resp 21 02/23 0745 O2 Delivery Simple mask 02/22 1154 O2 Flow Rate 5 02/22 1154 Physical Exam Medications: Active Meds + DC'd Last 24 Hrs Sodium Chloride (SODIUM CHLORIDE) 10 ML .STK-MED ONE IV (DC) Apixaban (ELIQUIS 5MG TABLET) 5 MG BID PO Famotidine (PEPCID) 10 MG DAILY PO (DC) Loratadine (CLARITIN) 10 MG DAILY PO Metoprolol Tartrate (LOPRESSOR) 50 MG BID PO Pantoprazole Sodium (PROTONIX) 40 MG DAILY IV Torsemide (DEMADEX) 20 MG DAILY PO Allopurinol (ZYLOPRIM) 300 MG BID PO Atorvastatin Calcium (LIPITOR) 20 MG 2100 PO Melatonin (Melatonin) 5 MG BEDTIME PO Sacubitril/Valsartan (Entresto 97MG/103MG TAB) 1 TAB BID PO Gabapentin (NEURONTIN) 0 .STK-MED ONE PO (DC) Gabapentin (NEURONTIN) 0 .STK-MED ONE .ROUTE (DC) Aspirin (ASPIRIN) 0 .STK-MED ONE PO (DC) Clopidogrel Bisulfate (Plavix) 0 .STK-MED ONE .ROUTE (DC) Gabapentin (NEURONTIN) 600 MG TID PO Aspirin (ASPIRIN) 81 MG DAILY PO Clopidogrel Bisulfate (Plavix) 75 MG DAILY PO Norepinephrine Bitartrate (NOREPINEPHRINE 8 MG/NS 250 ML) 250 ML TITRATE IV Acetaminophen (TYLENOL) 325 MG Q6H PRN PRN PO Guaifenesin (MUCINEX 600MG TAB SA) 600 MG Q12H PO Atropine Sulfate (ATROPINE SULFATE 0.1MG/ML SYR) 0.5 MG ASDIR PRN IV Sodium Chloride (SODIUM CHLORIDE 0.9%) 500 ML ASDIR PRN IV Acetaminophen (TYLENOL EXTRA STRENGTH) 1,000 MG PREOP ONCALL PO (DC) Lactated Ringer's (LACTATED RINGERS) 1,000 ML PREOP ONCALL IV (DC) Lidocaine HCl (LIDOCAINE HCL/PF) 2 ML PREOP ONCALL LOCAL (DC) Lidocaine HCl (LIDOCAINE HCL/PF) 2 ML PREOP ONCALL LOCAL (DC) Sodium Chloride (SODIUM CHLORIDE 0.9%) 500 ML PREOP ONCALL IV (DC) Sodium Chloride (SODIUM CHLORIDE 0.9%) 500 ML PREOP ONCALL IV (DC) Sodium Chloride (SODIUM CHLORIDE 0.9%) 1,000 ML PREOP ONCALL IV (DC) Sodium Chloride (SODIUM CHLORIDE) 5 ML ASDIR PRN IV (DC) Sodium Chloride (SODIUM CHLORIDE) 10 ML ASDIR PRN IV (DC) Sodium Chloride (SODIUM CHLORIDE 0.9%) 250 ML ASDIR PRN IV (DC) Cefazolin Sodium (KEFZOL OR ANCEF) 2 GM PREOP ONCALL IV (DC) Sodium Chloride (SODIUM CHLORIDE) 20 ML PREOP ONCALL IV (DC) General appearance: alert, awake, oriented, no acute distress Neck: non-tender Cardiovascular: irregularly irregular, BP/pulses equal bilat., normal heart sounds Respiratory: aerating well, clear to auscultation, symmetric expansion Abdomen: soft, non-tender Extremities: dry, moves all Musculoskeletal: full range of motion Neuro/ELEMENTARY EDUCATION TEACHER: alert, oriented X 3 Diagnosis, Assessment Plan Diagnosis, Assessment Plan Free Text A P: 1. Severe Symptomatic Aortic Stenosis S/p successful 29 mm Saavedra Amalia S3 implant via transfemoral access. The patient did well overnight and labs/vitals were viewed. Cardiology reviewed Echocardiogram. Patient to discharge on Eliquis and Aspirin. F/u with Dr. Nicholas in 1 week. We will follow with the structural heart team. at 1130 RPT #:[id number] END OF REPORT [facility] 2023-02-23 07:26:00 [id number] [place] [address] PATIENT NAME: OLIVIA LUX ADMIT DATE: 02/22/23 ACCOUNT NO: [id number] ROOM NO: [facility] AGE: 72 REPORT TYPE: eELECTROCARDIOGRAM REPORT SEX: M ADMITTING PHYSICIAN:Jerome Nicholas MD ATTENDING PHYSICIAN:Marcelina Burnett MD Order: [id number] Test Reason : POST PCI Test Date/Time Stamp: TueFeb 23 2023 07:26:11 Blood Pressure : / mmHG Vent. Rate : 079 BPM Atrial Rate : 068 BPM P-R Int : 000 ms QRS Dur : 146 ms QT Int : 398 ms P-R-T Axes : 000 061 -43 degrees QTc Int : 456 ms Atrial fibrillation Left bundle branch block Abnormal ECG When compared with ECG of 22-FEB-2023 11:30, Significant changes have occurred Confirmed by MD MOYER GERARD ([id number]) on 02/23/2023 5:46:05 PM Referred By: Jerome Nicholas Confirmed by:PATRICIA MOYER MD at 7896 PATIENT NAME: OLIVIA LUX [facility] 2023-02-22 17:48:00 [facility] ([facility]) Cardiothoracic Surgery Consult REPORT#:[id number] REPORT STATUS: Signed DATE:02/22/23 TIME: 1747 PATIENT: OLIVIA LUX UNIT #: [id number] [address]: [address] : [birth year] AGE: 72 SEX: M ATTEND: Marcelina Burnett MD ADM AUTHOR: Soledad Cline Physic * ALL edits or amendments must be made on the electronic/computer document * Soledad Cline 02/22/23 1748: History of Present Illness HPI Chief complaint: Aortic valve stenosis HPI: This is a 72-year-old gentleman with a past medical history of hypertension, diabetes type 2, chronic atrial fibrillation, morbid obesity who has been found to have significant aortic valve stenosis. He reports he has been followed for the past several years for his aortic stenosis. He does admit to feeling increased shortness of breath the past several months. His shortness of breath is usually associated with exertion. Patient also has bilateral lower extremity edema and orthopnea. Patient was worked up as an outpatient and found to have severe aortic stenosis. By report his echo on 11/30/2022 showed severe dilated LV, mild LVH, severe hypokinesis, EF 30% dilated LA, trace AI, aortic valve stenosis ALEXANDRIA 1.0 cm , mean gradient 29.2 mmHg. Dilated aortic root of 4.2 cm ascending aorta 4.1 cm Patient admits to being a previous smoker, quit 2014. Smoked for 60+ years. Patient is in chronic atrial fibrillation on Eliquis as the outpatient. History Past Medical History: Reports: Congestive heart failure, Diabetes mellitus, Hypertension. Past Surgical History: Reports: Hernia repair, Tonsillectomy. Family History Reports: Diabetes. Alcohol Use Denies EtOH use Drug Use Denies recreational drugs Smoking status for patients 13 years old or older: Current some day smoker Allergies: Coded Allergies: No Known Allergies (01/03/23) Review of Systems Free Text ROS Notes Free Text ROS Notes: Constitutional: Negative for fever, chills, weight loss Skin: Negative for rash, negative for swelling negative for any laceration HEENT: Denies hearing loss denies any ear ringing denies any earache denies any sore throat denies any throat pain Respiratory: Positive for dyspnea on exertion Cardiac: Denies chest pain, denies palpitations denies orthopnea GI: Denies constipation denies diarrhea : Denies hematuria denies dysuria denies flank pain Musculoskeletal: Denies any joint pain denies any joint swelling denies any myalgia Hematologic: Denies any easy bruising, denies any bleeding Endocrine: denies any night sweats, denies polyuria polydipsia Neurologic: Denies any lightheaded denies any headache denies any confusion denies any dizziness Objective Physical Exam VS/I O: Last Documented: Result Date Time O2 Delivery Simple mask 02/22 1154 O2 Flow Rate 5 02/22 1154 Pulse Ox 97 02/22 1138 B/P 128/69 02/22 1138 Pulse 77 02/22 1138 Resp 18 02/22 1138 Temp 98.1 02/22 1133 PATIENT WEIGHT: Weight (lb): 329 Weight (oz): 9.46 Weight (kg): 149.500 General: well nourished, well groomed, no acute distress. HEENT: conjunctiva clear, extraocular movement intact, PERRLA, sclera anicteric. normal dentition, gums, normal, oral mucosa without pallor or cyanosis. Neck: no, JVD, trachea midline, no, lymphadenopathy, neck supple, normal ROM. Respiratory: Clear to auscultation, no distress. Cardiovascular: regular rate and rhythm, 3/6 systolic ejection murmur Abdomen: Soft, non tender. No rebound. No guarding Extremities: dry, moves all. Musculoskeletal: Full range of motion, no CVA tenderness, no muscle spasm Skin: warm, dry, no, lesions, rash. Neurologic: Alert and oriented x3. Psychiatric: affect and demeanor normal Diagnosis, Assessment Plan Free Text A P: This is a 72-year-old gentleman with a past medical history of hypertension, diabetes type 2, chronic atrial fibrillation, morbid obesity who has been found to have significant aortic valve stenosis. He reports he has been followed for the past several years for his aortic stenosis. He does admit to feeling increased shortness of breath the past several months. His shortness of breath is usually associated with exertion. Patient also has bilateral lower extremity edema and orthopnea. Patient was worked up as an outpatient and found to have severe aortic stenosis. By report his echo on 11/30/2022 showed severe dilated LV, mild LVH, severe hypokinesis, EF 30% dilated LA, trace AI, aortic valve stenosis ALEXANDRIA 1.0 cm , mean gradient 29.2 mmHg. Dilated aortic root of 4.2 cm ascending aorta 4.1 cm He underwent left heart catheterization today. Patient admits to being a previous smoker, quit 2014. Smoked for 60+ years. Patient is in chronic atrial fibrillation on Eliquis as the outpatient. Assessment/plan 1. Severe aortic valve stenosis 2. Diabetes 3. Atrial fibrillation Patient was seen and worked up for TAVR. He was deemed a good candidate for TAVR procedure. This was discussed with the patient. The risk of the operation including risk, benefits, complications, STS score, etc. was discussed with the patient and the patient's family. Their questions were answered and the patient agreed to proceed with surgery Fanny Ford 03/19/23 1137: Attestations Physician Attestation Agree w/findings plan: I have seen and examined Mr. Hutchison. I agree with the findings and plan as documented by CURT Ferrari. Briefly, 72-year-old gentleman with severe aortic stenosis. He was worked up and presented in the structural heart conference and found to be a suitable candidate for TAVR. Patient admitted to the hospital today for the procedure. I have explained to him the procedure, risk involved, benefit, alternatives, STS risk of, and complications. All his questions have been answered. at 1750 at 1204 RPT #:[id number] END OF REPORT [facility] 2023-02-22 16:33:00 [facility] ([facility] DT Operative Note REPORT#:[id number] REPORT STATUS: Signed DATE:02/22/23 TIME: 1633 PATIENT: OLIVIA LUX UNIT #: [id number] ROOM/BED: [place] [id number] : 49 AGE: 72 SEX: M ATTEND: Marcelina Burnett MD ADM AUTHOR: Fanny Ford MD * ALL edits or amendments must be made on the electronic/computer document * Operative Report Operative Note Note: Preoperative diagnosis: Severe symptomatic aortic stenosis Postoperative diagnosis: Severe symptomatic aortic stenosis Procedure: 1.Transcatheter aortic valve replacement (TAVR) utilizing # 29 Saavedra's Amalia S3 Ultra pericardial valve via transfemoral approach with MAC. 2. Ascending aortogram 3. Placement of temporary pacing wire 4. Manta closure of right common femoral artery 5. Completion angiogram Surgeon: Hugo Ford MD Supervisor Cleaning And Annealing: MD Jerome Viramontes MD Anaesthesia: MAC Estimated blood loss: 20 cc Indication: Mr Lux is a pleasant 72-year-old, male with severe symptomatic aortic stenosis. He was investigated and was found to be a suitable candidate for TAVR. After do preop counseling he was brought to the hybrid room today for TAVR Findings: 1. Severe calcification of aortic valve 2. The delivery system was passed without difficulty into the left ventricular outflow tract for deployment. 3. A 29 mm Amalia S3 Ultra valve was required 4. Post replacement TTE revealed no paravalvular leak 5. Patient had good Doppler signals in both lower extremities following the procedure. Procedure in detail: Further details will be dictated by Dr. Nicholas as he was the retort pre cooker. The patient was brought into the hybrid room. A timeout procedure was performed which confirmed the patient's name medical record number and the procedure to be performed. The patient was placed supine on the operating table. The chest, abdomen, and groins were prepped and draped in standard surgical fashion. 1% lidocaine was used to anesthetize the area over the right femoral artery, and left femoral artery and vein. After placement of appropriate sheath patient was heparinized, to maintain and a ACT more than 250 second. An aortic root shot was performed, noting the optimal angle for deployment of the valve. This confirmed the position already determined by CT angiogram 3D reconstruction. Subsequently, the 29 mm Saavedra Amalia S3 Ultra transcatheter valve was placed into the sheath in the right femoral artery and brought up through the aortic valve and placed in the correct position. This was confirmed by the heart valve team. Subsequently the rapid ventricular pacing was performed and the valve was deployed in the aortic annulus appropriately. The Cordis and sheath were pulled back. Postplacement transthoracic echo revealed good placement of the valve with no aortic insufficiency. The mean gradient was minimal. Subsequently, the sheaths were removed, the right common femoral artery was closed with a Manta device and the left common femoral artery hemostasis was achieved using manual pressure. Sterile dressings were applied. I was present as co-surgeon in conjunction with Dr Zavala and Dr. Nicholas. Dr. Nicholas will dictate his portion in detail. The patient tolerated the procedure well and was taken to the coronary care unit in stable condition. Sponge, needle and instrument count were correct. at 1638 RPT #:[id number] END OF REPORT [facility] 2023-02-22 11:30:00 [place] [address] PATIENT NAME: OLIVIA LUX ADMIT DATE: 02/22/23 ACCOUNT NO: [id number] ROOM NO: G.3348 AGE: 72 REPORT TYPE: eELECTROCARDIOGRAM REPORT SEX: M ADMITTING PHYSICIAN:Jerome Nicholas MD ATTENDING PHYSICIAN:Marcelina Burnett MD Order: [id number] Test Reason : S/P TAVR Test Date/Time Stamp: TueFeb 22 2023 11:30:37 Blood Pressure : / mmHG Vent. Rate : 088 BPM Atrial Rate : 093 BPM P-R Int : 000 ms QRS Dur : 146 ms QT Int : 420 ms P-R-T Axes : 000 -37 173 degrees QTc Int : 508 ms Atrial fibrillation Left axis deviation Left bundle branch block Abnormal ECG POST_OP Confirmed by LINH WELSH MD ([id number]) on 02/23/2023 10:51:50 AM Referred By: Jerome Nicholas Confirmed by:LINH WELSH MD at 1051 PATIENT NAME: OLIVIA LUX [facility] 2023-02-22 11:11:00 [facility] [place] [address] PATIENT NAME: OLIVIA LUX ADMIT DATE: 02/22/23 ACCOUNT NO: [id number] ROOM NO: G.3348 AGE: 72 REPORT TYPE: OPERATIVE REPORT SEX: M ADMITTING PHYSICIAN:Jerome Nicholas MD ATTENDING PHYSICIAN:Marcelina Burnett MD OPERATION DATE: 02/22/2023 PREOPERATIVE DIAGNOSIS: POSTOPERATIVE DIAGNOSIS: PROCEDURE: Transcatheter aortic valve replacement using 29 mm Amalia S3 Ultra valve via right common femoral artery access. INDICATION: Severe aortic valve stenosis, symptomatic. ACCESS: 1. Right common femoral artery 16-Portuguese closed with MANTA closure device. 2. The left common femoral artery 5-Portuguese closed with Mynx device. 3. Left femoral vein, 8-Portuguese closed with [id number] suture. COMPLICATIONS: None. BLEEDING: Less than 50 mL PRIMARY OPERATORS: Jerome Nicholas MD and Marcelina Burnett MD PRIMARY SURGEON: Fanny Ford MD. BILINGUAL SALES REPRESENTATIVE: ANESTHESIA: Monitored anesthesia care. PROCEDURE IN DETAIL: After risks, benefits and alternatives were explained, the patient agreed to proceed. Signed informed consent. The patient was brought into the hybrid operating room, prepped and draped in the usual sterile fashion. Monitored anesthesia care was applied. Subsequently, accessed the right femoral artery, left femoral artery and left femoral vein using micropuncture kit and ultrasound guidance and placed 6-Portuguese Blaine sheath in each location. Subsequently, took a pacemaker wire through the left femoral vein into the right ventricle and a pacemaker was tested and secured in place and then took a number pigtail through the left femoral artery into the aortic root and then I upgraded the right femoral artery to a 16-Portuguese Saavedra sheath and took AL1 catheter into the aortic root. With a straight wire, valve was crossed and then I sent a pigtail into the LV and did simultaneous pressure measurements. Subsequently, I sent an Amplatz extra stiff wire into the LV and at this time, systemic heparin was in already with therapeutic ACT above 250 throughout the procedure. Then, we took the 29 mm valve that was prepped by the PATIENT NAME: OLIVIA LUX rep and then advanced over the Amplatz wire into the abdominal aorta. The valve was sampled and the valve was advanced into the aortic root and across the aortic valve and then under rapid pacing settings, valve was deployed and then delivery system was removed. A bedside echo showed that the valve is seated well. No regurgitation and no complications, no effusion. Then, the delivery system was removed. A right femoral sheath was removed and MANTA closure device was used and angiogram was done, showed no extravasation. Then, the left femoral artery was removed and using Mynx closure device the left femoral vein was removed and [id number] suture was used for closure. CONCLUSION: Successful transcatheter aortic valve replacement using a 29 mm Amalia S3 Ultra valve via right femoral artery access. Dictated By: Jerome Nicholas MD Date Dictated: 02/22/2023 11:11:57 Date Transcribed: 02/22/2023 13:18:38 /BASIL[facility]/VALERIE Receipt ID: [id number] Authenticated by Jerome Nicholas MD On 03/23/2023 08:49:19 AM at 0849 PATIENT NAME: OLIVIA LUX [facility] 2023-02-18 10:48:00 [id number] [place] [address] PATIENT NAME: OLIVIA LUX ADMIT DATE: ACCOUNT NO: [id number] ROOM NO: AGE: 72 REPORT TYPE: eELECTROCARDIOGRAM REPORT SEX: M ADMITTING PHYSICIAN:Jerome Nicholas MD ATTENDING PHYSICIAN:Jerome Nicholas MD Order: [id number] Test Reason : PREOP Test Date/Time Stamp: TueFeb 18 2023 10:48:47 Blood Pressure : / mmHG Vent. Rate : 069 BPM Atrial Rate : 066 BPM P-R Int : 000 ms QRS Dur : 150 ms QT Int : 420 ms P-R-T Axes : 000 030 -49 degrees QTc Int : 450 ms Atrial fibrillation Left bundle branch block Abnormal ECG PRE_OP Confirmed by LINH WELSH MD ([id number]) on 02/18/2023 12:45:30 PM Referred By: Jerome Nicholas Confirmed by:LINH WELSH MD at 1245 PATIENT NAME: OLIVIA LUX [facility] 2023-02-02 09:22:00 [id number] [place] [address] PATIENT NAME: OLIVIA LUX ADMIT DATE: 01/31/23 ACCOUNT NO: [id number] ROOM NO: AGE: 72 REPORT TYPE: PULMONARY FUNCTION REPORT SEX: M ADMITTING PHYSICIAN: ATTENDING PHYSICIAN:Miles Bowen NP STUDY DATE: FULL PULMONARY FUNCTION OF TEST INTERPRETATION SPIROMETRY: FVC is 94% predicted. FEV1 is 99% predicted. Response to bronchodilator up to 14% and 15%, ratio 77. TLCO is 86 and DLCO is 88. FULL PULMONARY FUNCTION OF TEST: Consistent with asthma. Dictated By: Gregoria Wliliamson MD Date Dictated: 02/02/2023 09:22:51 Date Transcribed: 02/02/2023 09:48:14 /[facility] Receipt ID: [id number] Authenticated by GREGORIA WILLIAMSON MD On 02/03/2023 12:56:09 PM at 1256 PATIENT NAME: OLIVIA LUX [facility] 2023-02-01 13:15:00 [id number] [place] [address] PATIENT NAME: OLIVIA LUX ADMIT DATE: 01/31/23 ACCOUNT NO: [id number] ROOM NO: AGE: 72 REPORT TYPE: eECHOCARDIOGRAM REPORT SEX: M ADMITTING PHYSICIAN: ATTENDING PHYSICIAN:Miles Bowen NP *[place] [address] Transthoracic Echocardiogram Patient: Olivia Lux Study Date: 01/31/2023 BP: 117 / 62 Location: [facility] URN: [id number] : 1950 Age: 72 Height: 74 in / 188 cm Gender: M Weight: 334.3 lb / 152 kg BMI/BSA: 43 kg/m 2 / 2.71 m 2 *Ordering Physician: * Jerome Nicholas *Interpreting Physician: * Marcelina Burnett MD *Steam Shovel Operating Engineer: * Lily Camargo Indications: Evaluation of aortic stenosis. Study data: Transthoracic echocardiogram. Procedure: Transthoracic echocardiography was performed. Image quality was adequate. Intravenous contrast (Optison) was administered. Complete 2D, complete spectral Doppler, and color Doppler. Location: Echo laboratory. Patient status: Outpatient. Study status: Routine. Rhythm: Atrial fibrillation. Findings Left ventricle: The cavity size is dilated. Wall thickness is mildly to moderately increased. Systolic function is severely reduced. The estimated ejection fraction is 30-34%. Regional wall motion abnormalities: Severe hypokinesis of the mid anteroseptal, apical septal, and apical myocardium. There is fusion of early and atrial contributions to ventricular filling. Left ventricular diastolic PATIENT NAME: OLIVIA LUX function parameters are indeterminate. Right ventricle: Estimated TAPSE is 1.5 cm. The cavity size is normal. Systolic function is mildly reduced. Left atrium: The atrium is dilated. Right atrium: The atrium is dilated. Aorta: The ascending aorta is mildly dilated measuring upt to 41 mm. Aortic root: The aortic root is normal in size. Aortic valve: The valve is structurally normal. The valve is trileaflet. The findings are consistent with severe stenosis. ALEXANDRIA 0.82 cm2, Peak V 4.16 m There is mild to moderate regurgitation. Mitral valve: The valve is structurally normal. There is no evidence of stenosis. There is mild regurgitation. Tricuspid valve: The valve is structurally normal. There is mild regurgitation. Pulmonic valve: The valve is structurally normal. There is no regurgitation. Pericardium: A prominent pericardial fat pad is present. There is no pericardial effusion. Pulmonary arteries: The main pulmonary artery is normal-sized. Systemic veins: Inferior vena cava: The vessel is normal in size. The respirophasic diameter changes are in the normal range (= 50%). Measurements Left ventricle Value Ref DONYA, LAX 6.6 cm 4.2 - 5.8 ESD, LAX 6.2 cm 2.5 - 4.0 ESD/bsa, LAX 2.3 cm/m 2 1.3 - 2.1 FS, LAX 6 % 25 - 43 ESD/bsa major 3.0 cm/m 2 --------- ax, A4C DONYA/bsa minor 3.0 cm/m 2 --------- ax, A4C DONYA major ax, 9.3 cm --------- A2C ESD major ax, 8.8 cm --------- A2C DONYA/bsa major 3.4 cm/m 2 --------- ax, A2C ESD/bsa major 3.2 cm/m 2 --------- ax, A2C PW, ED 1.5 cm 0.6 - 1.0 IVS/PW, ED 0.96 --------- EF 14 % 52 - 72 LVOT Value Ref Diam, S 2.34 cm --------- Area 4.3 cm 2 --------- Peak adina, S 0.69 m/sec --------- Mean adina, S 0.49 m/sec --------- VTI, S 15.8 cm --------- PATIENT NAME: OLIVIA LUX Peak grad, S 2 mm Hg --------- Mean grad, S 1 mm Hg --------- SV 68 ml --------- Qs 5.13 L/min --------- Qs/bsa 1.9 L/(min-m 2) --------- SV/bsa 25 ml/m 2 --------- Ventricular septum Value Ref IVS, ED 1.5 cm 0.6 - 1.0 Right ventricle Value Ref DONYA, LAX 3.6 cm --------- TAPSE, MM 1.5 cm 1.7 - 3.1 S' lateral 7.7 cm/sec 6.0 - 13.4 RVOT Value Ref Peak v, S 0.91 m/sec --------- Peak grad, S 3 mm Hg --------- Left atrium Value Ref AP dim, ES 4.95 cm 3.00 - 4.00 Vol/bsa, ES, 34 ml/m 2 12 - 37 1-p A4C Vol, ES, 2-p 91 ml --------- Vol/bsa, ES, 34 ml/m 2 16 - 34 2-p Vol/bsa, ES, 36 ml/m 2 16 - 34 A/L AP dim, ES MM 5.7 cm 3.0 - 4.0 LA/Ao root 1.79 --------- ratio, MM Right atrium Value Ref Area, ES 22 cm 2 10 - 18 SI dim, ES, A4C 5.9 cm 3.4 - 5.3 SI dim/bsa, ES, 2.2 cm/m 2 1.8 - 3.0 A4C Vol, ES, A/L 67 ml --------- Vol, ES, 1-p 65 ml --------- A4C Vol/bsa, ES, 24 ml/m 2 11 - 39 1-p A4C Aortic valve Value Ref ALEXANDRIA, plan 0.82 cm 2 --------- ALEXANDRIA/bsa, plan 0.3 cm 2/m 2 --------- Leaflet sep, MM 0.82 cm --------- Peak v, S 4.16 m/sec --------- Mean v, S 3.16 m/sec --------- VTI, S 95.5 cm --------- Mean grad, S 42.4 mm Hg --------- Peak grad, S 69.3 mm Hg --------- PATIENT NAME: OLIVIA LUX LVOT/AV, VTI 0.17 --------- ratio A[place], VTI 0.85 cm 2 --------- LVOT/AV, Vpeak 0.16 --------- ratio [place], Vmax 0.73 cm 2 --------- AR peak v 3.65 m/sec --------- AR decel 137 cm/s 2 --------- AR decel time 3961 ms --------- AR PHT 1149 ms --------- AR peak grad 53 mm Hg --------- Pulmonic valve Value Ref W[place] v, ED 0.76 m/sec --------- Tricuspid valve Value Ref TR peak v 2.34 m/sec <=2.8 Peak RV-RA 22 mm Hg --------- grad, S Aortic root Value Ref Root diam, ED 3.16 cm --------- MM Conclusions Summary: 1. Left ventricle: The cavity size is dilated. Wall thickness is mildly to moderately increased. Systolic function is severely reduced. The estimated ejection fraction is 30-34%. There is fusion of early and atrial contributions to ventricular filling. Left ventricular diastolic function parameters are indeterminate. 2. Regional wall motion abnormality: Severe hypokinesis of the mid anteroseptal, apical septal, and apical myocardium. 3. Right ventricle: Estimated TAPSE is 1.5 cm. Systolic function is mildly reduced. 4. Left atrium: The atrium is dilated. The end-systolic volume index (A-L) is 36 ml/m 2. 5. Right atrium: The atrium is dilated. The end-systolic endocardial area is 22 cm 2. 6. Aortic valve: The findings are consistent with severe stenosis. ALEXANDRIA 0.82 cm2, Peak V 4.16 m There is mild to moderate regurgitation. The planimetered valve area is 0.82 cm 2. The peak systolic velocity is 4.16 m/sec. The mean systolic gradient is 42.4 mm Hg. The peak systolic gradient is 69.3 mm Hg. The valve area by the peak velocity method is 0.73 cm 2. 7. Mitral valve: There is mild regurgitation. 8. Tricuspid valve: There is mild regurgitation. Prepared and electronically signed by PATIENT NAME: OLIVIA LUX Marcelina Burnett MD 02/01/2023 13:15 at 1315 PATIENT NAME: OLIVIA LUX [facility] 2023-01-03 10:32:00 [facility] Cardiothoracic Surgery Consult REPORT#:[id number] REPORT STATUS: Signed DATE:01/03/23 TIME: 1032 PATIENT: OLIVIA LUX UNIT #: [id number] ROOM/BED: : 49 AGE: 72 SEX: M ATTEND: Jerome Nicholas MD ADM AUTHOR: Soledad Cline Physic * ALL edits or amendments must be made on the electronic/computer document * Soledad Cline 01/03/23 1032: History of Present Illness HPI Chief complaint: Requesting Clinician Dr Nicholsa HPI: This is a 72-year-old gentleman with a past medical history of hypertension, diabetes type 2, chronic atrial fibrillation, morbid obesity who has been found to have significant aortic valve stenosis. He reports he has been followed for the past several years for his aortic stenosis. He does admit to feeling increased shortness of breath the past several months. His shortness of breath is usually associated with exertion. Patient also has bilateral lower extremity edema and orthopnea. Patient was worked up as an outpatient and found to have severe aortic stenosis. By report his echo on 11/30/2022 showed severe dilated LV, mild LVH, severe hypokinesis, EF 30% dilated LA, trace AI, aortic valve stenosis ALEXANDRI[place] 1.0 cm , mean gradient 29.2 mmHg. Dilated aortic root of 4.2 cm ascending aorta 4.1 cm He underwent left heart catheterization today. Patient admits to being a previous smoker, quit 2014. Smoked for 60+ years. Patient is in chronic atrial fibrillation on Eliquis as the outpatient. CV surgery consulted for evaluation of severe aortic valve stenosis History Past Medical History: Reports: Congestive heart failure, Diabetes mellitus, Hypertension. Past Surgical History: Reports: Hernia repair, Tonsillectomy. Family History Reports: Diabetes. Alcohol Use Denies EtOH use Drug Use Denies recreational drugs Smoking status for patients 13 years old or older: Former Smoker (Quit 2014) Allergies: Coded Allergies: No Known Allergies (01/03/23) Review of Systems Free Text ROS Notes Free Text ROS Notes: Constitutional: Negative for fever, chills, weight loss Skin: Negative for rash, negative for swelling negative for any laceration HEENT: Denies hearing loss denies any ear ringing denies any earache denies any sore throat denies any throat pain Respiratory: Positive for dyspnea on exertion Cardiac: Denies chest pain, denies palpitations denies orthopnea GI: Denies constipation denies diarrhea : Denies hematuria denies dysuria denies flank pain Musculoskeletal: Denies any joint pain denies any joint swelling denies any myalgia Hematologic: Denies any easy bruising, denies any bleeding Endocrine: denies any night sweats, denies polyuria polydipsia Neurologic: Denies any lightheaded denies any headache denies any confusion denies any dizziness Objective Physical Exam VS/I O: Last Documented: Result Date Time Pulse Ox 94 01/03 830 B/P 129/86 01/03 830 Temp 98.2 01/03 830 Pulse 82 01/03 830 Resp 18 07/03 0830 PATIENT WEIGHT: Weight (lb): 342 Weight (oz): 11.51 Weight (kg): 155.455 General appearance: alert, awake, oriented Free Text Obj Notes Free Text Obj Notes: General: well nourished, well groomed, no acute distress. Morbid obese HEENT: conjunctiva clear, extraocular movement intact, PERRLA, sclera anicteric. normal dentition, gums, normal, oral mucosa without pallor or cyanosis. Neck: no, JVD, trachea midline, no, lymphadenopathy, neck supple, normal ROM. Respiratory: Clear to auscultation, no distress. Cardiovascular: regular rate and rhythm, 3/6 systolic ejection murmur Abdomen: Soft, non tender. No rebound. No guarding Extremities: Bilateral lower extremity venous stasis dermatitis 2+ edema bilateral Musculoskeletal: Full range of motion, no CVA tenderness, no muscle spasm Skin: warm, dry, no, lesions, rash. Neurologic: Alert and oriented x3. Psychiatric: affect and demeanor normal Diagnosis, Assessment Plan Free Text A P: This is a 72-year-old gentleman with a past medical history of hypertension, diabetes type 2, chronic atrial fibrillation, morbid obesity who has been found to have significant aortic valve stenosis. He reports he has been followed for the past several years for his aortic stenosis. He does admit to feeling increased shortness of breath the past several months. His shortness of breath is usually associated with exertion. Patient also has bilateral lower extremity edema and orthopnea. Patient was worked up as an outpatient and found to have severe aortic stenosis. By report his echo on 11/30/2022 showed severe dilated LV, mild LVH, severe hypokinesis, EF 30% dilated LA, trace AI, aortic valve stenosis [place] 1.0 cm , mean gradient 29.2 mmHg. Dilated aortic root of 4.2 cm ascending aorta 4.1 cm He underwent left heart catheterization today. Patient admits to being a previous smoker, quit 2014. Smoked for 60+ years. Patient is in chronic atrial fibrillation on Eliquis as the outpatient. CV surgery consulted for evaluation of severe aortic valve stenosis Assessment/plan 1. Aortic valve stenosis 2. Diabetes mellitus type 2 3. Chronic atrial fibrillation On Eliquis 4. Morbid obesity 5. CHF Patient will be worked up for aortic valve stenosis. TAVR coordinator consulted. Patient will be presented in the structural heart conference for consideration for TAVR Further recommendations to follow after work-up for TAVR. Patient left prior to being seen by Dr Ford. Will arrange him for outpatient followup. Thank you for this kind consultation Fanny Ford 01/25/23 1326: Attestations Physician Attestation Agree w/findings plan: I have seen and examined Mr. Hutchison. I agree with the findings and plan as documented by CURT Ferrari. Briefly, 72-year-old gentleman with severe aortic stenosis. Patient will benefit from intervention on the aortic valve. I had a long discussion with the patient, explained to him the echo finding and need for intervention of the aortic valve. I have discussed with him the procedure, risk involved, benefit, alternatives, STS risk score, and complications. Patient has agreed for TAVR he will be worked up and presented in the structural heart conference. Thank you for the kind consult. at 1608 at 1351 RPT #:[id number] END OF REPORT [facility] 2023-01-03 09:30:00 [id number] [place] [address] PATIENT NAME: OLIVIA LUX ADMIT DATE: 01/03/23 ACCOUNT NO: [id number] ROOM NO: AGE: 72 REPORT TYPE: OPERATIVE REPORT SEX: M ADMITTING PHYSICIAN: ATTENDING PHYSICIAN:Jerome Nicholas MD OPERATION DATE: 01/03/2023 PREOPERATIVE DIAGNOSIS: POSTOPERATIVE DIAGNOSIS: PROCEDURE PERFORMED: Selective coronary angiogram. SURGEON: Jerome Nicholas MD BILINGUAL SALES REPRESENTATIVE: ANESTHESIA: INDICATION: Severe aortic valve stenosis, pre-TAVR. ACCESS: Right radial artery, 6-Portuguese closed with TR band. COMPLICATIONS: None. BLEEDING: Less than 20 mL. TOTAL SEDATION TIME: 50 minutes used fentanyl and Versed. DESCRIPTION OF PROCEDURE: After risks, benefits and alternatives were explained, the patient agreed to proceed and signed informed consent. The patient was brought into the cardiac catheterization laboratory, prepped and draped in sterile fashion. Then, I accessed the right radial artery using a pediatric micropuncture kit and placed a 6-Portuguese slender sheath and took a 5-Portuguese Dunnegan 4.0 catheter into the aortic root, engaged the left main and then right coronary artery and took standard views and then removed the catheter and the sheath and placed TR band with good hemostasis. FINDINGS: 1. Left main and normal. 2. LAD: Large vessel with proximal 40% stenosis right before diagonal takeoff and then becomes normal. Diagonal branches are normal. 3. Left circumflex: Moderate size and normal. 4. RCA very large and dominant. No significant disease distally before bifurcation. The artery is aneurysmal, but no significant disease. CONCLUSION: Mild nonobstructive coronary artery disease. PATIENT NAME: OLIVIA LUX PLAN: Proceed with TAVR as planned. Dictated By: Jerome Nicholas MD Date Dictated: 01/03/2023 09:30:59 Date Transcribed: 01/03/2023 10:27:04 /CHAVEZ/ABRIL Receipt ID: [id number] Authenticated by Jerome Nicholas MD On 01/11/2023 10:56:31 AM at 1056 PATIENT NAME: OLIVIA LUX [facility] 2022-12-31 14:41:00 [phone] [place] [address] PATIENT NAME: OLIVIA LUX ADMIT DATE: ACCOUNT NO: [id number] ROOM NO: AGE: 72 REPORT TYPE: eELECTROCARDIOGRAM REPORT SEX: M ADMITTING PHYSICIAN: ATTENDING PHYSICIAN:Jerome Nicholas MD Order: [id number] Test Reason : PEROP Test Date/Time Stamp: TueDec 31 2022 14:41:28 Blood Pressure : / mmHG Vent. Rate : 076 BPM Atrial Rate : 088 BPM P-R Int : 000 ms QRS Dur : 144 ms QT Int : 394 ms P-R-T Axes : 000 044 -40 degrees QTc Int : 443 ms Atrial fibrillation Left bundle branch block Abnormal ECG PRE_OP Confirmed by LINH WELSH MD ([id number]) on 12/31/2022 3:35:18 PM Referred By: Self Referred Confirmed by:LINH WELSH MD at [id number] PATIENT NAME: OLIVIA LUX [facility]
[2025-03-25] MEDS ORDERED: AMIODARONE HCL 150 MG/3 ML INJ IV ONE (12:24)
[2025-03-25] MEDS ORDERED: NA CHLORIDE 0.9% 1,000 ML ONE (12:24)
[2025-03-25] MEDS ORDERED: AMIODARONE IN DEXTROSE,ISO-OSM 360 MG/200 ML BAG IV ONE (12:24)
[2025-03-25] MEDS ORDERED: MAGNESIUM SULFATE 1 gm IVPB 1 GM/100 ML BAG IV ONE (12:24)
[2025-03-25 12:25] LABS: Absolute Lymphocytes (CBC) 0.3 K/uL (0.7-4.9); Hematocrit 25.7 % (39.6-49.0); Hemoglobin 8.1 g/dL (13.6-17.9); MCH 27.1 pg (27.0-35.0); MCHC 31.5 g/dL (32.0-36.0); MCV 86.1 fL (80-100); MPV 8.8 fL (7.6-11.3); Nucleated RBC Absolute Count 0.0 (0-0); Nucleated Red Blood Cells % 0.1 % (0-0); RBC Red Blood Cell Count 2.98 M/uL (4.33-5.43); White Blood Count 4.20 thou/uL (4.3-10.9)
[2025-03-25] MEDS ORDERED: D5W 100 ML IV ONE (12:25)
--- NOTE | 2025-03-25 12:27 | RAD REPORT ---
EXAM: Chest Single View HISTORY: 74 years Male afib COMPARISON: 10/12/2012 FINDINGS: LUNGS/PLEURA: Blunted right costophrenic angle may represent a small pleural effusion. CARDIAC/MEDIASTINUM: The cardiac silhouette is within normal limits. UPPER ABDOMEN: No significant abnormality. BONES: No acute abnormality. LINES/TUBES/OTHER: Pacemaker present. IMPRESSION: Possible small right pleural effusion but otherwise no acute process identified. No evidence of overt pulmonary edema or consolidative airspace disease.
[2025-03-25 12:55] LABS: Anion Gap 8.0 mEq/L (5.0-15.0); BUN Blood Urea Nitrogen 42.0 mg/dL (7-18); Glucose Level 109.0 mg/dL (74-106); NT PRO-BNP 4090.0 pg/mL (<450); Potassium 4.0 mEq/L (3.5-5.1); Troponin High Sensitivity 58.0 pg/mL (<58.9)
[2025-03-25 12:59] LABS: PT Prothrombin Time 16.7 SECONDS (10-13.0); Protime INR 1.5
--- NOTE | 2025-03-25 13:51 | EDPHYS ---
Physician Documentation [facility] Name: Toñito Long Age: 74 yrs Sex: Male : 1950 Arrival Date: 03/25/2025 Time: 11:37 Bed 4 Private MD: ED Physician Kirk Grayson HPI: 03/25 12:34 This 74 yrs old Male presents to ER via Ambulatory with complaints of heart problem. rn 12:34 The patient presents with a history of heart racing. Onset: The symptoms/episode rn began/occurred at an unknown time. Patient sent by Dr. Nicholas for A-fib with RVR and hypotension. Has been attempting amiodarone p.o. but wants patient admitted for A-fib with RVR, IV amiodarone. Patient denies any chest pain but reports heart racing. Mild shortness of breath with exertion. No fever or chills. No abdominal pain.. Historical: - Allergies: 11:57 No Known Allergies; ss - PMHx: 11:57 Diabetes mellitus; ss - PSHx: 11:58 pacemaker; ss - Immunization history:: Adult Immunizations up to date. - Infectious Disease History:: Denies. - Social history:: Smoking status: Reported history of juuling and/or vaping. - Family history:: not pertinent. - Hospitalizations: : No recent hospitalization is reported. ROS: 12:34 Constitutional: Negative for fever, chills, and weight loss, Cardiovascular: Negative rn for chest pain, positive for heart racing and palpitations Respiratory: Positive for dyspnea with exertion Abdomen/GI: Negative for abdominal pain, nausea, vomiting, diarrhea, and constipation, MS/Extremity: Negative for injury and deformity, Skin: Negative for injury, rash, and discoloration, Neuro: Negative for headache, weakness, numbness, tingling, and seizure, Exam: 12:34 Constitutional: This is a well developed, well nourished patient who is awake, alert, rn and in no acute distress. Cardiovascular: Tachycardic, irregular. Respiratory: Mild tachypnea 12:42 ECG was reviewed by the Attending Physician. rn Vital Signs: 11:54 BP 80 / 59; Pulse 117; Resp 20; Temp 98.1(O); Pulse Ox 97% on R/A; Weight 131.54 kg; ss Height 6 ft. 2 in. ; Pain 0/10; 12:00 BP 75 / 56; Pulse 115; Resp 16; Pulse Ox 97% on R/A; dd2 13:00 BP 84 / 65; Pulse 113; Resp 17; Pulse Ox 99% ; bp 14:00 BP 90 / 71; Pulse 110; Resp 13; Pulse Ox 95% ; bp 15:00 BP 94 / 59; Pulse 112; Resp 18; Pulse Ox 99% ; bp 16:00 BP 89 / 72; Pulse 109; Resp 12; Pulse Ox 98% ; bp 17:00 BP 125 / 80; Pulse 112; Resp 15; Pulse Ox 98% ; bp 11:54 Body Mass Index 37.23 (131.54 kg, 187.96 cm) ss 11:54 Pain Scale: Adult ss MDM: 11:45 Medical Screening Exam initiated rn 13:49 Differential diagnosis: arrythmia, dehydration, stress disorder, Atrial fibrillation rn with rapid ventricular rate, hypotension, anemia. Data reviewed: vital signs, nurses notes, lab test result(s), EKG, radiologic studies, plain films, and as a result, I will admit patient. Consideration of Admission/Observation Patient was admitted/placed on observation. Escalation of care including admission/observation considered. Independent interpretation of the following test(s) in the Emergency Department X-Ray: My interpretation is Chest x-ray images show mild pulmonary edema per my interpretation. salvationist: rate is 112 beats/min, Rhythm is atrial fibrillation, with no ectopy, Interpretation: atrial fibrillation. Care significantly affected by the following chronic conditions: Diabetes, atrial fibrillation, chronic anemia. Counseling: I had a detailed discussion with the patient and/or guardian regarding the historical points, exam findings, and any diagnostic results supporting the discharge/admit diagnosis, lab results, radiology results, the need for further work-up and treatment in the hospital. Response to treatment: the patient's symptoms have mildly improved after treatment, and as a result, I will admit patient. 03/25 11:46 Order name: Basic Metabolic Panel; Complete Time: 13: rn 03/25 11:46 Order name: CBC with Diff; Complete Time: 12:28 rn 03/25 11:46 Order name: NT PRO-BNP; Complete Time: 13: rn 03/25 11:46 Order name: PT-INR; Complete Time: 13: rn 03/25 11:46 Order name: Troponin HS; Complete Time: 13:09 rn 03/25 16:04 Order name: Basic Metabolic Panel EDMS 03/25 16:04 Order name: Basic Metabolic Panel EDMS 03/25 16:04 Order name: Basic Metabolic Panel EDMS 03/25 16:04 Order name: Basic Metabolic Panel EDMS 03/25 16:04 Order name: Liver (Hepatic) Function EDMS 03/25 16:05 Order name: CBC with Automated Diff EDMS 03/25 16:05 Order name: CBC with Automated Diff EDMS 03/25 16:05 Order name: CBC with Automated Diff EDMS 03/25 16:05 Order name: CBC with Automated Diff EDMS 03/25 16:05 Order name: Liver (Hepatic) Function EDMS 03/25 16:05 Order name: Magnesium EDMS 03/25 16:05 Order name: Magnesium EDMS 03/25 16:05 Order name: Phosphorus EDMS 03/25 16:05 Order name: Phosphorus EDMS 03/25 16:05 Order name: Protime (+INR) EDMS 03/25 16:05 Order name: Protime (+INR) EDMS 03/25 16:05 Order name: T4 Free EDMS 03/25 16:05 Order name: T4 Free EDMS 03/25 16:05 Order name: Thyroid Stimulating Hormone EDMS 03/25 16:05 Order name: Thyroid Stimulating Hormone EDMS 03/25 16:05 Order name: Troponin High Sensitivity EDMS 03/25 16:05 Order name: Troponin High Sensitivity; Complete Time: 17:21 EDMS 03/25 16:05 Order name: Troponin High Sensitivity EDMS 03/25 16:05 Order name: Troponin High Sensitivity EDMS 03/25 11:46 Order name: XRAY Chest (1 view); Complete Time: 12:28 rn 03/25 11:46 Order name: EKG; Complete Time: 11:46 rn 03/25 16:00 Order name: CONS Physician Consult EDMS 03/25 16:05 Order name: EKG Electrocardiogram EDMS 03/25 16:05 Order name: EKG Electrocardiogram EDMS 03/25 16:05 Order name: EKG Electrocardiogram EDMS 03/25 16:05 Order name: EKG Electrocardiogram EDMS 03/25 11:46 Order name: Cardiac monitoring; Complete Time: 12:21 rn 03/25 11:46 Order name: EKG - Nurse/Tech; Complete Time: 12: rn 03/25 11:46 Order name: IV Saline Lock; Complete Time: 12: rn 03/25 11:46 Order name: Labs collected and sent; Complete Time: 12: rn 03/25 11:46 Order name: O2 Per Protocol; Complete Time: 12:40 rn 03/25 11:46 Order name: O2 Sat Monitoring; Complete Time: 12:40 rn EC:42 Rate is 116 beats/min. Rhythm is irregular. QRS interval is prolonged at 228 msec. QT rn interval is normal. No Q waves. T waves are Normal. No ST changes noted. Clinical impression: Atrial Fibrillation. Interpreted by me. Reviewed by me. Administered Medications: 12:39 Drug: amiodarone IVPB 150 mg 100 ml IVPB once over 10 mins; (mix in D5W) Volume: 100 dd2 ml; Route: IVPB; Infused Over: 10 mins; Site: left antecubital; 17:20 Follow up: IV Status: Completed infusion bp 12:45 Drug: NS 0.9% IV 500 ml 500 ml IV at 1 bolus once; to be given as a bolus over 30 bp minutes Volume: 500 ml; Route: IV; Rate: 1 bolus; Site: left forearm; 17:19 Follow up: IV Status: Completed infusion bp 12:46 Drug: amiodarone IVPB 900 mg, D5W IV 500 ml IVPB at 1 mg/min continuous; for 6 hrs, bp then change to 0.5 mg/min Route: IVPB; Rate: 1 mg/min; Site: left antecubital; 17:19 Follow up: IV Status: Infusion continued upon admission bp 12:46 Drug: Magnesium Sulfate IVPB 1 grams IVPB once over 1 hrs Route: IVPB; Infused Over: 1 bp hrs; Site: left forearm; 17:19 Follow up: IV Status: Completed infusion bp 13:17 Drug: NS 0.9% IV 250 ml IV at bolus once; to be given as a bolus over 30 minutes Route: bp IV; Rate: bolus; Site: left forearm; 17:19 Follow up: IV Status: Completed infusion bp Disposition Summary: 03/25/25 13:51 Hospitalization Ordered Notes: Hospitalization Status: Inpatient Admission rn Provider: Elijah Thurman rn Location: Intensive Care Unit rn Condition: Fair rn Problem: new rn Symptoms: have improved rn Bed/Room Type: Standard rn Room Assignment: 2-(03/25/25 16:04) bd Diagnosis - Persistent atrial fibrillation - with rapid ventricular rate rn - Hypotension, unspecified rn Forms: - Medication Reconciliation Form rn - SBAR form rn - Leadership Thank You Letter rn medicare time excluding procedures: 13:49 Critical care time: Bedside Care: 30 minutes, Consultation: 5 minutes. Total time: 35 rn minutes Signatures: Dispatcher [employer] EDConcha Fuentes Roman, MD MD rn Blanchard, Shelby RN RN ss Reji Pradhan, RN RN RUBIN Maria, RN RN dd2 Corrections: (The following items were deleted from the chart) 16:04 13:51 rn bd
--- NOTE | 2025-03-25 13:51 | ER ---
Nurse's Notes [facility] Name: Toñito Long Age: 74 yrs Sex: Male : 1950 Arrival Date: 03/25/2025 Time: 11:37 Bed 4 Private MD: Diagnosis: Persistent atrial fibrillation-with rapid ventricular rate;Hypotension, unspecified Presentation: 03/25 11:54 Chief complaint: Patient states: Sent by [facility] for evaluation of "high heart ss rate." recently had a pacemaker placed. Denies fever/ feeling ill. Coronavirus screen: Client denies travel out of the [place] in the last 14 days. Ebola Screen: Patient denies exposure to infectious person. Patient denies travel to an Ebola-affected area in the 21 days before illness onset. Initial Sepsis Screen: Does the patient meet any 2 criteria? No. Patient's initial sepsis screen is negative. Does the patient have a suspected source of infection? No. Patient's initial sepsis screen is negative. Risk Assessment: Do you want to hurt yourself or someone else? Patient reports no desire to harm self or others. Onset of symptoms is unknown. 11:54 Method Of Arrival: Ambulatory ss 11:54 Acuity: MEHREEN 2 ss Triage Assessment: 12:00 General: Appears in no apparent distress. Behavior is calm, cooperative, appropriate bp for age. Pain: Denies pain. EENT: No deficits noted. Neuro: No deficits noted. Cardiovascular: Rhythm is atrial fibrillation with rapid ventricular response. Respiratory: No deficits noted. GI: No signs and/or symptoms were reported involving the gastrointestinal system. : No signs and/or symptoms were reported regarding the genitourinary system. Derm: No deficits noted. Musculoskeletal: No deficits noted. Historical: - Allergies: 11:57 No Known Allergies; ss - PMHx: 11:57 Diabetes mellitus; ss - PSHx: 11:58 pacemaker; ss - Immunization history:: Adult Immunizations up to date. - Infectious Disease History:: Denies. - Social history:: Smoking status: Reported history of juuling and/or vaping. - Family history:: not pertinent. - Hospitalizations: : No recent hospitalization is reported. Screenin:00 [facility] ED Fall Risk Assessment (Adult) History of falling in the last 3 months, bp including since admission No falls in past 3 months (0 pts) Confusion or Disorientation No (0 pts) Intoxicated or Sedated No (0 pts) Impaired Gait No (0 pts) Mobility Assist Device Used No (0 pt) Altered Elimination No (0 pt) Score/Fall Risk Level 0 - 2 = Low Risk Oriented to surroundings. Abuse screen: Denies threats or abuse. Denies injuries from another. Nutritional screening: No deficits noted. Tuberculosis screening: No symptoms or risk factors identified. Assessment: 12:41 General: Appears in no apparent distress. Behavior is calm, cooperative, appropriate dd2 for age. Pain: Denies pain. Neuro: Level of Consciousness is awake, alert, obeys commands, Oriented to person, place, time, situation, Appropriate for age. Cardiovascular: Reports GENERALIZED WEAKNESS Heart tones S1 S2 Patient's skin is warm and dry. Rhythm is A-V sequential pacer. Respiratory: No deficits noted. Airway is patent Respiratory effort is even, unlabored, Respiratory pattern is regular, symmetrical, Breath sounds are clear bilaterally. GI: No deficits noted. No signs and/or symptoms were reported involving the gastrointestinal system. Abdomen is obese. : No deficits noted. No signs and/or symptoms were reported regarding the genitourinary system. EENT: No deficits noted. No signs and/or symptoms were reported regarding the EENT system. Derm: No deficits noted. No signs and/or symptoms reported regarding the dermatologic system. Musculoskeletal: No deficits noted. No signs and/or symptoms reported regarding the musculoskeletal system. Vital Signs: 11:54 BP 80 / 59; Pulse 117; Resp 20; Temp 98.1(O); Pulse Ox 97% on R/A; Weight 131.54 kg; ss Height 6 ft. 2 in. ; Pain 0/10; 12:00 BP 75 / 56; Pulse 115; Resp 16; Pulse Ox 97% on R/A; dd2 13:00 BP 84 / 65; Pulse 113; Resp 17; Pulse Ox 99% ; bp 14:00 BP 90 / 71; Pulse 110; Resp 13; Pulse Ox 95% ; bp 15:00 BP 94 / 59; Pulse 112; Resp 18; Pulse Ox 99% ; bp 16:00 BP 89 / 72; Pulse 109; Resp 12; Pulse Ox 98% ; bp 17:00 BP 125 / 80; Pulse 112; Resp 15; Pulse Ox 98% ; bp 11:54 Body Mass Index 37.23 (131.54 kg, 187.96 cm) ss 11:54 Pain Scale: Adult ss ED Course: 11:42 Patient arrived in ED. al6 11:45 Kirk Grayson MD is Attending Physician. rn 11:57 Triage completed. ss 11:58 Arm band placed on left wrist. ss 12:00 Patient has correct armband on for positive identification. bp 12:19 Inserted saline lock: 20 gauge in left antecubital area, using aseptic technique. Blood pm7 collected. Flushed with 10 mL NS. 12:20 Initial lab(s) drawn, by me, sent to lab. pm7 12:23 XRAY Chest (1 view) In Process Unspecified. EDMS 12:45 Reji Pradhan, RN is Primary Nurse. bp 12:45 Inserted saline lock: 20 gauge in left forearm, using aseptic technique. Flushed with bp 10 mL NS. 13:50 Elijah Thurman is Hospitalizing Provider. rn 17:18 No provider procedures requiring assistance completed. Patient admitted, IV remains in bp place. Administered Medications: 12:39 Drug: amiodarone IVPB 150 mg 100 ml IVPB once over 10 mins; (mix in D5W) Volume: 100 dd2 ml; Route: IVPB; Infused Over: 10 mins; Site: left antecubital; 17:20 Follow up: IV Status: Completed infusion bp 12:45 Drug: NS 0.9% IV 500 ml 500 ml IV at 1 bolus once; to be given as a bolus over 30 bp minutes Volume: 500 ml; Route: IV; Rate: 1 bolus; Site: left forearm; 17:19 Follow up: IV Status: Completed infusion bp 12:46 Drug: amiodarone IVPB 900 mg, D5W IV 500 ml IVPB at 1 mg/min continuous; for 6 hrs, bp then change to 0.5 mg/min Route: IVPB; Rate: 1 mg/min; Site: left antecubital; 17:19 Follow up: IV Status: Infusion continued upon admission bp 12:46 Drug: Magnesium Sulfate IVPB 1 grams IVPB once over 1 hrs Route: IVPB; Infused Over: 1 bp hrs; Site: left forearm; 17:19 Follow up: IV Status: Completed infusion bp 13:17 Drug: NS 0.9% IV 250 ml IV at bolus once; to be given as a bolus over 30 minutes Route: bp IV; Rate: bolus; Site: left forearm; 17:19 Follow up: IV Status: Completed infusion bp Outcome: 13:51 Decision to Hospitalize by Provider. rn 18:03 Patient left the ED. ss Signatures: Dispatcher [employer] EDKirk Cavazos MD MD rn Blanchard, Shelby, RN RN ss Reji Pradhan RN RN bp DAVIS, DIANA, RN RN dd2 Angelique Hollis al6 Ayanna Servin pm7 Corrections: (The following items were deleted from the chart) 12:51 12:30 BP 75 / 56; Pulse 113bpm; Resp 12bpm; Pulse Ox 96%; bp bp
[2025-03-25] MEDS ORDERED: ACETAMINOPHEN 500 MG TAB PO PRN (15:59)
--- NOTE | 2025-03-25 16:13 | P.HP ---
Certification for Inpatient Patient admitted to: Inpatient With expected LOS: >2 Midnights Patient will require the following post-hospital care: None Practitioner: I am a practitioner with admitting privileges, knowledge of patient current condition, hospital course, and medical plan of care. Services: Services provided to patient in accordance with Admission requirements found in Title 42 Section 412.3 of the Code of Federal Regulations <Edward Vasquez - Last Filed: 03/25/25 16:07> Patient History Date of Service: 03/25/25 Primary Care Provider: Dr. Nicholas Reason for admission: A-fib RVR History of Present Illness: 74-year-old male prior medical history of A-fib status post unsuccessful cardiov ersion, pacer and ablation, diabetes mellitus 2, unspecified heart failure presents the ER via POV due to being sent by [facility] for cardiology clinic for A-fib RVR with hypotension. Denies chest pain, shortness of breath at rest, fever, chills, abdominal pain, NVD. Endorses shortness of breath on exertion that is chronic as a stomach virus approximately 10 days prior. ER course: Patient arrived via POV. Accompanied by spouse. ECG was collected upon admission showing A-fib RVR, ventricular paced with a beat of 112 bpm. Placed was placed on cardiac monitoring with telemetry. Chest x-ray was completed showing small right pleural effusion possible, but otherwise no acute cardiopulmonary process. Labs were collected significant for moderate anemia with hemoglobin of 8.1, thrombocytopenia with platelets of 109, BENITEZ on CKD with creatinine to 2.27 and BNP of 4090. At time of exam spouse was at the bedside, patient remained on amiodarone drip with SBP 127 and asymptomatic. - Past Medical/Surgical History Has patient received pneumonia vaccine in the past: No Diabetic: No -: CHF, unspecified -: A-fib -: DM2 -: Hyperlipidemia: -Continue home atorvastatin 80 mg once daily. -: ACID -: Pacemaker placement - Family History Family History: Reviewed- Non-Contributory - Social History Smoking Status: Former smoker (Current vaper) Counseled patient to stop smoking for: more than 10 minutes Alcohol use: Yes CD- Drugs: No Caffeine use: Yes Place of Residence: Home <Edward Vasquez - Last Filed: 03/25/25 16:07> Date of Service: 03/26/25 <Abdirahman,Azfar - Last Filed: 03/26/25 06:48> Allergies poison karri extract Allergy (Verified 07/19/22 14:43) Itching/Hives/Rash poison oak extract Allergy (Verified 07/19/22 14:43) Itching/Hives/Rash Home Medications: Candesartan Cilexetil [Atacand] 32 mg PO DAILY 10/12/12 Metoprolol Tartrate [Lopressor*] 50 mg PO BID #60 10/13/12 Torsemide 20 mg PO BID #0 tablet 10/13/12 Allopurinol 100 mg PO DAILY 08/22/20 Apixaban [Eliquis] 5 mg PO BID 08/22/20 Aspirin [Aspirin EC 325 MG] 2 tab PO DAILY PRN 08/22/20 Atorvastatin Calcium [Lipitor] 20 mg PO BEDTIME 08/22/20 Cetirizine HCl [Zyrtec] 5 mg PO DAILY 08/22/20 Cholecalciferol (Vitamin D3) [Vitamin D3] 50 mcg PO DAILY 08/22/20 Empagliflozin [Jardiance] 25 mg PO DAILY 08/22/20 Ferrous Gluconate 324 mg PO DAILY 08/22/20 Gabapentin 600 mg PO TID 08/22/20 Guaifenesin [Mucinex] 600 mg PO DAILY 08/22/20 Metformin ER [Glucophage ER] 750 mg PO BID 08/22/20 Multivitamin with Folic Acid [One Daily Multivitamin Tablet] 400 mcg PO DAILY 08/22/20 Tramadol HCl [Ultram] 50 mg PO Q4H PRN 08/22/20 Review of Systems 10-point ROS is otherwise unremarkable <Edward Vasquez - Last Filed: 03/25/25 16:07> Physical Examination - Physical Exam General: Alert, In no apparent distress, Oriented x3, Cooperative, Obese HEENT: Atraumatic, Normocephalic, Mucous membr. moist/pink Neck: Supple, 2+ carotid pulse no bruit, JVD not distended, No Thyromegaly Respiratory: Clear to auscultation bilaterally, Normal air movement, Diminished (Diminished bases) Cardiovascular: Normal pulses, No gallops, No rubs, No murmurs, Edema (+ 4 reports is chronic), Irregular heart rate/rhythm Capillary refill: <2 Seconds Gastrointestinal: Normal bowel sounds, Soft and benign, Non-distended, W/out hepatosplenomegaly, W/out hepatomegaly Musculoskeletal: No clubbing, No contractures, No erythema, No tenderness, No warmth Integumentary: No rashes, No breakdown, No significant lesion, No erythema, No warmth, No cyanosis (Ecchymosis BLE) Neurological: Normal gait, Normal speech, Normal strength at 5/5 x4 extr, Normal tone, Sensation intact, Cranial nerves 3-12 intact, Normal affect External genitalia: Deferred Rectal: Deferred - Studies Laboratory Data (last 24 hrs) 03/25/25 03/25/25 03/25/25 12:18 12:18 12:18 WBC 4.20 L Hgb 8.1 L Hct 25.7 L Plt Count 109 L PT 16.7 H INR 1.50 Sodium 142 Potassium 4.0 BUN 42 H Creatinine 2.27 H Glucose 109 H <Edward Vasquez - Last Filed: 03/25/25 16:07> - Studies Laboratory Data (last 24 hrs) 03/25/25 03/25/25 03/25/25 12:18 12:18 12:18 WBC 4.20 L Hgb 8.1 L Hct 25.7 L Plt Count 109 L PT 16.7 H INR 1.50 Sodium 142 Potassium 4.0 BUN 42 H Creatinine 2.27 H Glucose 109 H <Felicitas Gary - Last Filed: 03/26/25 06:48> Assessment and Plan - Plan Assessment: 74-year-old male with history of unspecified CHF, refractory afibrillation, diabetes mellitus 2 presents upon referral from Dr. Nicholas's office for A-fib RVR with hypotension for consideration for cardioversion after completing amiodarone loading and maintenance dosing. Plan: A-fib with RVR Previously treated with unsuccessful ablation and cardioversion, date unknown aicd placed for bradycardia approximately 6 months prior Amiodarone loading dose to be followed by maintenance drip to attempt chemical cardioversion Cardiology consulted, Dr. Lara aware Likely cardioversion if amiodarone drip unsuccessful Eliquis 5 mg twice daily, currently held pending cardiology clearance BENITEZ on chronic kidney disease stage III: Likely prerenal due to hypotension -Creatinine 2.27, 1.6 seems around baseline. -Maintain euvolemia. -Daily KFT. -Avoid nephrotoxins when possible. -Renally dose all medications. - Consider nephrology consult if not improving -Consider renal ultrasound if not improving Heart failure with reduced ejection fraction, not in acute exacerbation: -CXR personally reviewed, no signs of pulmonary edema present. -EKG ordered, no acute ischemic changes. Ventricular paced, A-fib. -Troponin 58, will trend -BNP 4090 - Consider echo pending cardiology recommendations -Strict intake and output chart. -Fluid restriction <1500 ml/day. -Lasix: Pending med rec -B aneat: Pending med rec -AceI/ARB/ Arni: On Entresto, dose uncertain. Likely will hold once med rec is complete. -SGLT-2: Pending med rec [id number] diabetes mellitus type 2: Diabetic neuropathy -Hemoglobin A1c - Insulin sliding scale ACHS Accu-Cheks Home regimen Mounjaro 7.5 mg weekly, currently held while inpatient. Last Dose 03/23 Gabapentin 600 mg twice daily for neuropathy Home regimen metformin 750 mg twice daily, currently held while inpatient Discharge Plan: Home Plan to discharge in: 48 Hours - Advance Directives Does patient have a Living Will: No Does patient have a Durable POA for Healthcare: No - Code Status/Comfort Care Code Status Assessed: Yes Code Status: Full Code Critical Care: No <Edward Vasquez - Last Filed: 03/25/25 16:07> Physician Review: Patient Assessed, Agree with Above Assessment and Plan <Felicitas Gary - Last Filed: 03/26/25 06:48>
[2025-03-25] MEDS ORDERED: TRAMADOL HCL 50 MG TAB PO PRN (16:26)
[2025-03-25] MEDS: HEPARIN 5000 UNIT/ML 1 ML VIAL SQ SCH (17:00)
[2025-03-25] MEDS: AMIODARONE HCL 900 MG in Dextrose 5%-Water 482 ML IV SCH (18:44)
[2025-03-25] MEDS: TORSEMIDE 20 MG TAB PO SCH (20:20)
[2025-03-25] MEDS: ATORVASTATIN 20 MG TAB PO SCH (20:20)
[2025-03-25] MEDS: METOPROLOL TAR 50 MG TAB PO SCH (21:00)
[2025-03-25] MEDS: GABAPENTIN 300 MG CAP PO SCH (21:26)
[2025-03-26 06:13] LABS: Absolute Lymphocytes (CBC) 0.3 K/uL (0.7-4.9); Hematocrit 26.9 % (39.6-49.0); Hemoglobin 8.7 g/dL (13.6-17.9); MCH 27.7 pg (27.0-35.0); MCHC 32.2 g/dL (32.0-36.0); MCV 86.0 fL (80-100); MPV 9.4 fL (7.6-11.3); Nucleated RBC Absolute Count 0.0 (0-0); Nucleated Red Blood Cells % 0.0 % (0-0); RBC Red Blood Cell Count 3.13 M/uL (4.33-5.43); White Blood Count 5.00 thou/uL (4.3-10.9)
[2025-03-26 06:28] LABS: PT Prothrombin Time 15.4 SECONDS (10-13.0); Protime INR 1.38
[2025-03-26 06:36] LABS: ALT/SGPT 43.0 U/L (16-61); AST/SGOT 25.0 U/L (15-37); Albumin 3.3 g/dL (3.4-5.0); Albumin/Globulin Ratio 1.1 (1.1-1.8); Alkaline Phosphatase 103.0 U/L (45-117); Anion Gap 9.5 mEq/L (5.0-15.0); BUN Blood Urea Nitrogen 37.0 mg/dL (7-18); Bilirubin Indirect, Calculated 0.1 mg/dL (0.2-0.8); Globulin 2.9 g/dL (2.3-3.5); Glucose Level 95.0 mg/dL (74-106); Magnesium 2.3 mg/dL (1.6-2.4); Potassium 3.5 mEq/L (3.5-5.1); Thyroid Stimulating Hormone 3.07 uIU/mL (0.358-3.740)
[2025-03-26] MEDS ORDERED: ASPIRIN EC 325 MG TABLET PO PRN (07:55)
--- NOTE | 2025-03-26 08:00 | P.PN ---
Subjective Date of Service: 03/26/25 Primary Care Provider: Dr. Nicholas Chief Complaint: A-fib RVR Subjective: No new changes Patient assessed lying in bed on room air in no apparent distress. Patient denies acute complaints. Reviewed patient is still showing A-fib on monitor with heart rate 110-120. Amiodarone drip currently running. Reviewed plan to have interlocking tower operator see patient today for next steps. Electronic cardioversion discussed in the event chemical cardioversion with amiodarone was unsuccessful. Patient n.p.o. since midnight as to not delay procedure, if selected. <Edward Vasquez - Last Filed: 03/26/25 07:48> Date of Service: 03/26/25 <Felicitas Gary - Last Filed: 03/26/25 16:31> Review of Systems 10-point ROS is otherwise unremarkable <Edward Vasquez - Last Filed: 03/26/25 07:48> Physical Examination - Vital Signs Temperature: 97.6 F Blood Pressure: 92/63 Pulse: 119 Respirations: 15 Pulse Ox (%): 97 - Physical Exam General: Alert, Oriented x3, Cooperative, Obese HEENT: Atraumatic, Normocephalic, Mucous membr. moist/pink Neck: Supple, 2+ carotid pulse no bruit, JVD not distended, No Thyromegaly Respiratory: Clear to auscultation bilaterally, Normal air movement, Diminished (bases) Cardiovascular: No edema, Edema (+3), Irregular heart rate/rhythm Capillary refill: <2 Seconds Gastrointestinal: Normal bowel sounds, Soft and benign, Non-distended Musculoskeletal: No clubbing, No swelling, No contractures Integumentary: No rashes, No breakdown, No warmth, No cyanosis, Other (Ecchymosis BLE, chronic) Neurological: Normal speech, Normal tone, Sensation intact, Cranial nerves 3-12 intact, Normal affect External genitalia: Deferred Rectal: Deferred - Studies Laboratory Data (last 24 hrs) 03/25/25 03/25/25 03/25/25 12:18 12:18 12:18 WBC 4.20 L Hgb 8.1 L Hct 25.7 L Plt Count 109 L PT 16.7 H INR 1.50 Sodium 142 Potassium 4.0 BUN 42 H Creatinine 2.27 H Glucose 109 H Medications List Reviewed: No <Edward Vasquez - Last Filed: 03/26/25 07:48> Assessment And Plan - Plan Assessment: 74-year-old male with history of unspecified CHF, refractory afibrillation, diabetes mellitus 2 presents upon referral from Dr. Nicholas's office for A-fib RVR with hypotension for consideration for cardioversion after completing amiodarone loading and maintenance dosing. Plan: A-fib with RVR Previously treated with unsuccessful ablation and cardioversion, date unknown aicd placed for symptomatic bradycardia approximately 6 months prior Continue amiodarone drip, patient still in A-fib a.m. 03/26 Cardiology consulted, Dr. Nicholas aware Likely cardioversion if amiodarone drip unsuccessful Eliquis 5 mg twice daily BENITEZ on chronic kidney disease stage III: Likely prerenal due to hypotension, improving -Creatinine 1.84, 1.6 seems around baseline. -Maintain euvolemia. -Daily KFT. -Avoid nephrotoxins when possible. -Renally dose all medications. - Consider nephrology consult if not improving - Consider renal ultrasound if not improving Heart failure with reduced ejection fraction, not in acute exacerbation: -CXR personally reviewed, no signs of pulmonary edema present. -EKG reviewed no acute ischemic changes. Ventricular paced, A-fib. -Troponin 58/55.9/66.2/59.9 -BNP 4090 - Consider echo pending cardiology recommendations -Strict intake and output chart. -Fluid restriction <1500 ml/day. -Diuretic: Torsemide 20 mg twice daily -B aneta: Lopressor 50 mg twice daily -AceI/ARB/ Arni: On Entresto, dose uncertain. -SGLT-2: None [id number] diabetes mellitus type 2: Well-controlled Diabetic neuropathy -Hemoglobin A1c 5.2 -DC insulin sliding scale DC ACHS Accu-Cheks Home regimen Mounjaro 7.5 mg weekly, currently held while inpatient. Last Dose 03/23 Home regimen metformin 750 mg twice daily, currently held while inpatient Gabapentin 600 mg twice daily for neuropathy Monitor BMP daily Dispo: - Cardioversion/cardiac clearance Anticipate home with no needs within 24 Discharge Plan: Home Plan to discharge in: 24 Hours - Code Status/Comfort Care Code Status Assessed: No Physician Review: Patient Assessed, Agree with Above Assessment and Plan Critical Care: Yes Time Spent Managing PTS Care (In Minutes): 48 <Edward Vasquez - Last Filed: 03/26/25 07:48> Physician Review: Patient Assessed, Agree with Above Assessment and Plan (I personally saw and evaluated the patient on 03/26/2025. I reviewed Edward Vasquez's documentation and agree with the findings and plan of care as documented. I have discussed the case with the clinician and provided direct guidance as appropriate. Any additions clarifications are noted in my docu) <Felicitas Gary - Last Filed: 03/26/25 16:31>
[2025-03-26] MEDS: GABAPENTIN 300 MG CAP PO SCH (08:37)
[2025-03-26] MEDS: Multi-VIT(Centravite Senior) 1 TAB TAB PO SCH (08:37)
[2025-03-26] MEDS: FERROUS GLUCONATE 324 MG TAB PO SCH (08:38)
[2025-03-26] MEDS: APIXABAN 5 MG TABLET PO SCH (08:38)
[2025-03-26] MEDS: VITAMIN D 1000 UNIT TAB PO SCH (08:38)
[2025-03-26] MEDS: CETIRIZINE HCL 5 MG TABLET PO SCH (08:38)
[2025-03-26] MEDS: Empagliflozin [Jardiance] 25 MG Tablet *PT OWN MED PO SCH (09:00)
[2025-03-26] MEDS ORDERED: HOME MED 1 EA UNK (Ferrous Gluconate [Ferrous Gluconate] 324 MG Tablet) PO SCH (09:00)
[2025-03-26] MEDS ORDERED: MULTIVITAMIN TAB PO SCH (09:00)
[2025-03-26] MEDS ORDERED: HOME MED 1 EA UNK (Cholecalciferol (Vitamin D3) [Vitamin D3] 50 MCG Capsule) PO SCH (09:00)
[2025-03-26] MEDS: CANDESARTAN CILEXETIL 32 MG PO SCH (09:00)
--- NOTE | 2025-03-26 09:51 | P.CNS ---
Date of Consult: 03/26/25 Primary Care Provider: Dr. Nicholas Chief Complaint: A-fib RVR History of Present Illness: Patient with PMH of atrial fibrillation s/p recent ablation and pacemaker placement, presented as an admission from cardiology office as he was found in RVR, report palpitations, denies chest pain, no syncope. Allergies poison karri extract Allergy (Verified 07/19/22 14:43) Itching/Hives/Rash poison oak extract Allergy (Verified 07/19/22 14:43) Itching/Hives/Rash Home medications list reviewed: Yes Home Medications: Candesartan Cilexetil [Atacand] 32 mg PO DAILY 10/12/12 Metoprolol Tartrate [Lopressor*] 50 mg PO BID #60 10/13/12 Torsemide 20 mg PO BID #0 tablet 10/13/12 Allopurinol 100 mg PO DAILY 08/22/20 Apixaban [Eliquis] 5 mg PO BID 08/22/20 Aspirin [Aspirin EC 325 MG] 2 tab PO DAILY PRN 08/22/20 Atorvastatin Calcium [Lipitor] 20 mg PO BEDTIME 08/22/20 Cetirizine HCl [Zyrtec] 5 mg PO DAILY 08/22/20 Cholecalciferol (Vitamin D3) [Vitamin D3] 50 mcg PO DAILY 08/22/20 Empagliflozin [Jardiance] 25 mg PO DAILY 08/22/20 Ferrous Gluconate 324 mg PO DAILY 08/22/20 Gabapentin 600 mg PO TID 08/22/20 Guaifenesin [Mucinex] 600 mg PO DAILY 08/22/20 Metformin ER [Glucophage ER] 750 mg PO BID 08/22/20 Multivitamin with Folic Acid [One Daily Multivitamin Tablet] 400 mcg PO DAILY 08/22/20 Tramadol HCl [Ultram] 50 mg PO Q4H PRN 08/22/20 - Past Medical/Surgical History Diabetic: Yes -: CHF, unspecified -: A-fib -: DM2 -: Hyperlipidemia: -Continue home atorvastatin 80 mg once daily. -: ACID -: Pacemaker placement - Social History Smoking Status: Current every day smoker Alcohol use: Yes CD- Drugs: No Caffeine use: Yes Place of Residence: Home Review of Systems 10-point ROS is otherwise unremarkable Physical Examination Temp Pulse Resp BP Pulse Ox 97.6 F 117 H 13 94/61 98 03/26/25 08:00 03/26/25 09:00 03/26/25 09:00 03/26/25 09:00 03/26/25 09:00 General: Alert, In no apparent distress HEENT: Atraumatic, PERRLA, Mucous membr. moist/pink, EOMI, Sclerae nonicteric Neck: Supple, 2+ carotid pulse no bruit, No LAD, Without JVD or thyroid abnormality Respiratory: Clear to auscultation bilaterally, Normal air movement Cardiovascular: Normal S1 S2, Irregular heart rate/rhythm Gastrointestinal: Normal bowel sounds, No tenderness Musculoskeletal: No tenderness Integumentary: No rashes Neurological: Normal gait, Normal speech, Normal tone, Normal affect Lymphatics: No axilla or inguinal lymphadenopathy Laboratory Data (last 24 hrs) 03/25/25 03/25/25 03/25/25 12:18 12:18 12:18 WBC 4.20 L Hgb 8.1 L Hct 25.7 L Plt Count 109 L PT 16.7 H INR 1.50 Sodium 142 Potassium 4.0 BUN 42 H Creatinine 2.27 H Glucose 109 H - Problems (1) Atrial fibrillation Current Visit: Yes Status: Acute Plan: continue Amiodarone drip for now continue Eliquis 5 mg po BID Continue to monitor on tele (2) Pacemaker Current Visit: Yes Status: Acute Plan: patient is intermittently paced, continue to monitor. (3) HTN (hypertension) Current Visit: Yes Status: Acute Plan: BP is soft, continue Torsemide for now and monitor
[2025-03-26] MEDS: FAMOTIDINE 20 MG TAB PO SCH (20:18)
[2025-03-26] MEDS: METOPROLOL TAR 25 MG TAB PO SCH (20:25)
[2025-03-27 03:54] VITALS: O2SAT 96
[2025-03-27 05:42] LABS: Absolute Lymphocytes (CBC) 0.4 K/uL (0.7-4.9); Hematocrit 26.1 % (39.6-49.0); Hemoglobin 8.5 g/dL (13.6-17.9); MCH 27.9 pg (27.0-35.0); MCHC 32.6 g/dL (32.0-36.0); MCV 85.7 fL (80-100); MPV 8.4 fL (7.6-11.3); Nucleated RBC Absolute Count 0.0 (0-0); Nucleated Red Blood Cells % 0.1 % (0-0); RBC Red Blood Cell Count 3.04 M/uL (4.33-5.43); White Blood Count 3.70 thou/uL (4.3-10.9)
[2025-03-27 05:57] LABS: Anion Gap 7.6 mEq/L (5.0-15.0); BUN Blood Urea Nitrogen 31.0 mg/dL (7-18); Glucose Level 102.0 mg/dL (74-106); Potassium 3.6 mEq/L (3.5-5.1)
[2025-03-27] MEDS: Empagliflozin [Jardiance] 25 MG Tablet *PT OWN MED PO SCH (08:37)
[2025-03-27] MEDS: TORSEMIDE 20 MG TAB PO SCH (08:37)
[2025-03-27] MEDS: PANTOPRAZOLE 40MG TABLET PO SCH (08:38)
[2025-03-27] MEDS: ASPIRIN EC 81 MG TAB PO SCH (08:54)
[2025-03-27] MEDS ORDERED: HOME MED 1 EA UNK (Omeprazole [Omeprazole] 20 MG Capsule.Dr) PO SCH (09:00)
[2025-03-27] MEDS: AMIODARONE HCL 200 MG TAB PO SCH (10:49)
--- NOTE | 2025-03-27 11:23 | P.PN ---
Subjective Date of Service: 03/27/25 Primary Care Provider: Dr. Nicholas Chief Complaint: A-fib RVR Subjective: No new changes, No C/O voiced, Tolerating diet Review of Systems 10-point ROS is otherwise unremarkable Physical Examination - Vital Signs Temperature: 97.8 F Blood Pressure: 94/65 Pulse: 97 Respirations: 16 Pulse Ox (%): 95 - Physical Exam General: Alert, In no apparent distress HEENT: Atraumatic, PERRLA, EOMI Neck: Supple, JVD not distended Respiratory: Clear to auscultation bilaterally, Normal air movement Cardiovascular: Normal S1 S2, Irregular heart rate/rhythm Gastrointestinal: Normal bowel sounds, No tenderness Musculoskeletal: No tenderness Integumentary: No rashes Neurological: Normal speech, Normal tone, Normal affect Lymphatics: No axilla or inguinal lymphadenopathy - Studies Medications List Reviewed: No Assessment And Plan - Current Problems (Diagnosis) (1) Atrial fibrillation Current Visit: Yes Status: Acute Plan: Stop amdioarone drip start Amiodarone 200 mg po BID continue Eliquis 5 mg po BID Continue to monitor on tele NPO after midnight for SAVI DCCV in am (2) Pacemaker Current Visit: Yes Status: Acute Plan: patient is intermittently paced, continue to monitor. (3) HTN (hypertension) Current Visit: Yes Status: Acute Plan: BP is soft, continue Torsemide for now and monitor Physician Review: Patient Assessed, Agree with Above Assessment and Plan (I personally saw and evaluated the patient on 03/26/2025. I reviewed Edward Vasquez's documentation and agree with the findings and plan of care as documented. I have discussed the case with the clinician and provided direct guidance as appropriate. Any additions clarifications are noted in my docu)
[2025-03-27] MEDS: NA CHLORIDE 0.9% 500 ML IV ONE (13:00)
--- NOTE | 2025-03-27 17:46 | P.PN ---
Date of Service: 03/27/24 Subjective: Resting comfortably in bed. Heart rate improving. Blood pressure improved denies fevers and chills. No acute complaints. Review of Systems 10-point ROS is otherwise unremarkable Physical Examination - Vital Signs Temperature: 97.6 F Blood Pressure: 92/63 Pulse: 119 Respirations: 15 Pulse Ox (%): 97 - Physical Exam General: Alert, Oriented x3, Cooperative, Obese HEENT: Atraumatic, Normocephalic, Mucous membr. moist/pink Neck: Supple, 2+ carotid pulse no bruit, JVD not distended, No Thyromegaly Respiratory: Clear to auscultation bilaterally, Normal air movement, Diminished (bases) Cardiovascular: No edema, Edema (+3), Irregular heart rate/rhythm Capillary refill: <2 Seconds Gastrointestinal: Normal bowel sounds, Soft and benign, Non-distended Musculoskeletal: No clubbing, No swelling, No contractures Integumentary: No rashes, No breakdown, No warmth, No cyanosis, Other (Ecchymosis BLE, chronic) Neurological: Normal speech, Normal tone, Sensation intact, Cranial nerves 3-12 intact, Normal affect External genitalia: Deferred Rectal: Deferred - Studies Laboratory Data (last 24 hrs) 03/25/25 03/25/25 03/25/25 12:18 12:18 12:18 WBC 4.20 L Hgb 8.1 L Hct 25.7 L Plt Count 109 L PT 16.7 H INR 1.50 Sodium 142 Potassium 4.0 BUN 42 H Creatinine 2.27 H Glucose 109 H Medications List Reviewed: No Assessment And Plan - Plan Assessment: 74-year-old male with history of unspecified CHF, refractory afibrillation, diabetes mellitus 2 presents upon referral from Dr. Nicholas's office for A-fib RVR with hypotension for consideration for cardioversion after completing amiodarone loading and maintenance dosing. 03/27 - Now on amiodarone twice daily - N.p.o. at midnight for cardioversion in the a.m. - Resume home medication - Discussed with cardiology A-fib with RVR Previously treated with unsuccessful ablation and cardioversion, date unknown aicd placed for symptomatic bradycardia approximately 6 months prior Continue amiodarone drip, patient still in A-fib a.m. 03/26 Cardiology consulted, Dr. Nicholas aware Likely cardioversion if amiodarone drip unsuccessful Eliquis 5 mg twice daily BENITEZ on chronic kidney disease stage III: Likely prerenal due to hypotension, improving -Creatinine 1.84, 1.6 seems around baseline. -Maintain euvolemia. -Daily KFT. -Avoid nephrotoxins when possible. -Renally dose all medications. - Consider nephrology consult if not improving - Consider renal ultrasound if not improving Heart failure with reduced ejection fraction, not in acute exacerbation: -CXR personally reviewed, no signs of pulmonary edema present. -EKG reviewed no acute ischemic changes. Ventricular paced, A-fib. -Troponin 58/55.9/66.2/59.9 -BNP 4090 - Consider echo pending cardiology recommendations -Strict intake and output chart. -Fluid restriction <1500 ml/day. -Diuretic: Torsemide 20 mg twice daily -B aneta: Lopressor 50 mg twice daily -AceI/ARB/ Arni: On Entresto, dose uncertain. -SGLT-2: None [id number] diabetes mellitus type 2: Well-controlled Diabetic neuropathy -Hemoglobin A1c 5.2 -DC insulin sliding scale DC ACHS Accu-Cheks Home regimen Mounjaro 7.5 mg weekly, currently held while inpatient. Last Dose 03/23 Home regimen metformin 750 mg twice daily, currently held while inpatient Gabapentin 600 mg twice daily for neuropathy Monitor BMP daily Dispo: - Cardioversion/cardiac clearance Anticipate home with no needs within 24 Discharge Plan: Home Plan to discharge in: 24 Hours - Code Status/Comfort Care Code Status Assessed: No
[2025-03-28 05:13] LABS: Absolute Lymphocytes (CBC) 0.7 K/uL (0.7-4.9); Hematocrit 29.5 % (39.6-49.0); Hemoglobin 9.6 g/dL (13.6-17.9); MCH 27.9 pg (27.0-35.0); MCHC 32.5 g/dL (32.0-36.0); MCV 85.8 fL (80-100); MPV 8.8 fL (7.6-11.3); Nucleated RBC Absolute Count 0.0 (0-0); Nucleated Red Blood Cells % 0.0 % (0-0); RBC Red Blood Cell Count 3.43 M/uL (4.33-5.43); White Blood Count 5.10 thou/uL (4.3-10.9)
[2025-03-28 05:20] LABS: Anion Gap 9.4 mEq/L (5.0-15.0); BUN Blood Urea Nitrogen 27.0 mg/dL (7-18); Glucose Level 112.0 mg/dL (74-106); Potassium 3.4 mEq/L (3.5-5.1)
[2025-03-28 06:43] VITALS: BMI 35.9
[2025-03-28 09:39] VITALS: TEMP 97.1
[2025-03-28 10:46] VITALS: BP 100/78
--- NOTE | 2025-03-28 11:14 | P.PN ---
Subjective Date of Service: 03/28/25 Primary Care Provider: Dr. Nicholas Chief Complaint: A-fib RVR Subjective: No new changes Review of Systems 10-point ROS is otherwise unremarkable Physical Examination - Vital Signs Temperature: 97.1 F Blood Pressure: 100/78 Pulse: 79 Respirations: 18 Pulse Ox (%): 95 - Physical Exam General: Alert, In no apparent distress HEENT: Atraumatic, PERRLA, EOMI Neck: Supple, JVD not distended Respiratory: Clear to auscultation bilaterally, Normal air movement Cardiovascular: Normal S1 S2, Irregular heart rate/rhythm Gastrointestinal: Normal bowel sounds, No tenderness Musculoskeletal: No tenderness Integumentary: No rashes Neurological: Normal speech, Normal tone, Normal affect Lymphatics: No axilla or inguinal lymphadenopathy - Studies Medications List Reviewed: No Assessment And Plan - Current Problems (Diagnosis) (1) Atrial fibrillation Current Visit: Yes Status: Acute Plan: continue Amiodarone 200 mg po BID continue Eliquis 5 mg po BID Continue to monitor on tele SAVI DCCV can not be done since patient is on Monjaro and he will need to be off it for 7 days before anasthesia can be given patient can go home with amiodarone, eliquis and Lopressor 25 mg BID follow up with cardiology and EP cardiology as outpatient. (2) Pacemaker Current Visit: Yes Status: Acute Plan: patient is intermittently paced, continue to monitor. (3) HTN (hypertension) Current Visit: Yes Status: Acute Plan: BP is soft, continue Torsemide for now and monitor Physician Review: Patient Assessed, Agree with Above Assessment and Plan (I personally saw and evaluated the patient on 03/26/2025. I reviewed Edward Vasquez's documentation and agree with the findings and plan of care as documented. I have discussed the case with the clinician and provided direct guidance as appropriate. Any additions clarifications are noted in my docu)
--- NOTE | 2025-03-28 11:39 | P.DS ---
Admission Date: 03/25/25 Discharge Date: 03/28/25 Primary Care Provider: Dr. Nicholas Disposition: ROUTINE DISCHARGE Reason for Admission: A-fib RVR Brief History of Present Illness: 74-year-old male prior medical history of A-fib status post unsuccessful cardioversion, pacer and ablation, diabetes mellitus 2, unspecified heart failure presents the ER via POV due to being sent by [place] for cardiology clinic for A-fib RVR with hypotension. Denies chest pain, shortness of breath at rest, fever, chills, abdominal pain, NVD. Endorses shortness of breath on exertion that is chronic as a stomach virus approximately 10 days prior. Patient arrived via POV. Accompanied by spouse. ECG was collected upon admission showing A-fib RVR, ventricular paced with a beat of 112 bpm. Placed was placed on cardiac monitoring with telemetry. Chest x-ray was completed showing small right pleural effusion possible, but otherwise no acute cardiopulmonary process. Labs were collected significant for moderate anemia with hemoglobin of 8.1, thrombocytopenia with platelets of 109, BENITEZ on CKD with creatinine to 2.27 and BNP of 4090. At time of exam spouse was at the bedside, patient remained on amiodarone drip with SBP 127 and asymptomatic. Upon admission cardiology was consulted. He has been continued on amiodarone and Eliquis. Unfortunately because he was on Mounjaro he will need to be off it 7 days before anesthesia. He will go home with amiodarone, Eliquis and Lopressor. He will follow-up with cardiology and EP cardiology as outpatient. The remainder of his medical problems are stable and he is medically optimized for discharge Hospital Course: Physical Examination - Vital Signs Temperature: 97.6 F Blood Pressure: 92/63 Pulse: 119 Respirations: 15 Pulse Ox (%): 97 - Physical Exam General: Alert, Oriented x3, Cooperative, Obese HEENT: Atraumatic, Normocephalic, Mucous membr. moist/pink Neck: Supple, 2+ carotid pulse no bruit, JVD not distended, No Thyromegaly Respiratory: Clear to auscultation bilaterally, Normal air movement, Diminished (bases) Cardiovascular: No edema, Edema (+3), Irregular heart rate/rhythm Capillary refill: <2 Seconds Gastrointestinal: Normal bowel sounds, Soft and benign, Non-distended Musculoskeletal: No clubbing, No swelling, No contractures Integumentary: No rashes, No breakdown, No warmth, No cyanosis, Other (Ecchymosis BLE, chronic) Neurological: Normal speech, Normal tone, Sensation intact, Cranial nerves 3-12 intact, Normal affect External genitalia: Deferred Rectal: Deferred - Studies Laboratory Data (last 24 hrs) 03/25/25 03/25/25 03/25/25 12:18 12:18 12:18 WBC 4.20 L Hgb 8.1 L Hct 25.7 L Plt Count 109 L PT 16.7 H INR 1.50 Sodium 142 Potassium 4.0 BUN 42 H Creatinine 2.27 H Glucose 109 H Medications List Reviewed: No Assessment And Plan - Plan Assessment: 74-year-old male with history of unspecified CHF, refractory afibrillation, diabetes mellitus 2 presents upon referral from Dr. Nicholas's office for A-fib RVR with hypotension for consideration for cardioversion after completing amiodarone loading and maintenance dosing. 03/28 -Unable to do cardioversion due to being on Mounjaro. Needs to be off Mounjaro for 7 days - Home with amiodarone, Eliquis, Lopressor 03/27 - Now on amiodarone twice daily - N.p.o. at midnight for cardioversion in the a.m. - Resume home medication - Discussed with cardiology A-fib with RVR Previously treated with unsuccessful ablation and cardioversion, date unknown aicd placed for symptomatic bradycardia approximately 6 months prior Continue amiodarone drip, patient still in A-fib a.m. 03/26 Cardiology consulted, Dr. Nicholas aware Likely cardioversion if amiodarone drip unsuccessful Eliquis 5 mg twice daily BENITEZ on chronic kidney disease stage III: Likely prerenal due to hypotension, improving -Creatinine 1.84, 1.6 seems around baseline. -Maintain euvolemia. -Daily KFT. -Avoid nephrotoxins when possible. -Renally dose all medications. - Consider nephrology consult if not improving - Consider renal ultrasound if not improving Heart failure with reduced ejection fraction, not in acute exacerbation: -CXR personally reviewed, no signs of pulmonary edema present. -EKG reviewed no acute ischemic changes. Ventricular paced, A-fib. -Troponin 58/55.9/66.2/59.9 -BNP 4090 - Consider echo pending cardiology recommendations -Strict intake and output chart. -Fluid restriction <1500 ml/day. -Diuretic: Torsemide 20 mg twice daily -B aneta: Lopressor 50 mg twice daily -AceI/ARB/ Arni: On Entresto, dose uncertain. -SGLT-2: None [id number] diabetes mellitus type 2: Well-controlled Diabetic neuropathy -Hemoglobin A1c 5.2 -DC insulin sliding scale DC ACHS Accu-Cheks Home regimen Mounjaro 7.5 mg weekly, currently held while inpatient. Last Dose 03/23 Home regimen metformin 750 mg twice daily, currently held while inpatient Gabapentin 600 mg twice daily for neuropathy Monitor BMP daily Dispo: - Cardioversion/cardiac clearance Anticipate home with no needs within 24 Discharge Plan: Home Plan to discharge in: 24 Hours - Code Status/Comfort Care Code Status Assessed: No Vital Signs/Physical Exam: Temp Pulse Resp BP Pulse Ox 97.1 F 79 18 100/78 95 03/28/25 11:14 03/28/25 11:14 03/28/25 11:14 03/28/25 11:14 03/28/25 11:14 Laboratory Data at Discharge: WBC 5.10 thou/uL (4.3-10.9) 03/28/25 04:29 Hgb 9.6 g/dL (13.6-17.9) L D 03/28/25 04:29 Hct 29.5 % (39.6-49.0) L 03/28/25 04:29 Plt Count 114 thou/uL (152-406) L 03/28/25 04:29 PT 15.4 SECONDS (10-13.0) H 03/26/25 05:32 INR 1.38 03/26/25 05:32 Sodium 146 mEq/L (136-145) H 03/28/25 04:29 Potassium 3.4 mEq/L (3.5-5.1) L 03/28/25 04:29 BUN 27 mg/dL (7-18) H 03/28/25 04:29 Creatinine 1.87 mg/dL (0.70-1.30) H 03/28/25 04:29 Glucose 112 mg/dL (74-106) H 03/28/25 04:29 Phosphorus 3.6 mg/dL (2.5-4.9) 03/26/25 05:32 Magnesium 2.3 mg/dL (1.6-2.4) 03/26/25 05:32 Total Bilirubin 0.3 mg/dL (0.2-1.0) 03/26/25 05:32 AST 25 U/L (15-37) 03/26/25 05:32 ALT 43 U/L (16-61) 03/26/25 05:32 Alkaline Phosphatase 103 U/L (45-117) 03/26/25 05:32 Home Medications: Allopurinol 300 mg PO DAILY 08/22/20 Cetirizine HCl [Zyrtec*] 5 mg PO DAILY 08/22/20 Empagliflozin [Jardiance] 25 mg PO DAILY 08/22/20 Ferrous Gluconate 324 mg PO DAILY 08/22/20 Gabapentin 900 mg PO BID 08/22/20 Guaifenesin [Mucinex] 1,200 mg PO BID PRN 08/22/20 Metformin ER [Glucophage ER*] 750 mg PO BID 08/22/20 Multivitamin with Folic Acid [One Daily Multivitamin Tablet] 400 mcg PO DAILY 08/22/20 Tramadol HCl [Ultram] 50 mg PO Q4H PRN 08/22/20 Aspirin [Aspirin EC 81 MG] 81 mg PO DAILY 03/26/25 Famotidine [Pepcid*] 20 mg PO BEDTIME 03/26/25 Metoprolol Tartrate [Lopressor*] 25 mg PO BID 03/26/25 Omeprazole 20 mg PO DAILY 03/26/25 Rosuvastatin [Crestor*] 10 mg PO BEDTIME 03/26/25 Sacubitril/Valsartan [Entresto 97 mg-103 mg Tablet] 1 each PO BID 03/26/25 Torsemide [Demadex*] 20 mg PO DAILY 03/26/25 Amiodarone HCl [Cordarone*] 200 mg PO BID 30 Days #60 tab 03/28/25 Apixaban [Eliquis] 5 mg PO BID 30 Days #60 tab 03/28/25 New Medications: Amiodarone HCl [Cordarone*] 200 mg PO BID 30 Days #60 tab Apixaban [Eliquis] 5 mg PO BID 30 Days #60 tab Followup: Lena Wilson [Primary Care Provider] -
== END 2025-03-28 12:15 | disposition home or self-care (01) | DRG 309 ==
LOC: ER 11:37 → 3RD-ICU 15:57
PROVIDERS: ADMIT Family Medicine; ATTEND Family Medicine
DX: I48.19 Other persistent atrial fibrillation (principal); I13.0 Hypertensive heart and chronic kidney disease with heart failure and stage 1 through stage 4 chronic kidney disease, or unspecified chronic kidney disease; N17.9 Acute kidney failure, unspecified; I50.22 Chronic systolic (congestive) heart failure; N18.30 Chronic kidney disease, stage 3 unspecified; E11.22 Type 2 diabetes mellitus with diabetic chronic kidney disease; E11.40 Type 2 diabetes mellitus with diabetic neuropathy, unspecified; D63.1 Anemia in chronic kidney disease; E66.9 Obesity, unspecified; I95.9 Hypotension, unspecified; D69.6 Thrombocytopenia, unspecified; Z95.810 Presence of automatic (implantable) cardiac defibrillator; Z87.891 Personal history of nicotine dependence; Z79.01 Long term (current) use of anticoagulants; Z79.82 Long term (current) use of aspirin; Z79.84 Long term (current) use of oral hypoglycemic drugs; Z79.899 Other long term (current) drug therapy; Z68.36 Body mass index [BMI] 36.0-36.9, adult
CPT/HCPCS: 36415; 71045; 80048; 80076; 82947; 83036; 83735; 83880; 84100; 84439; 84443; 84484; 85025; 85610; 93005; 99284; J0282; J1644; J3475; J7030; J7040; J7060